=== PATIENT | female | born 1950 | race Caucasian/White ===

== ENCOUNTER 2019-11-25 00:20 | Day surgery (SDC) | payer MEDICARE, SELFPAY ==
[2019-11-21 14:01] VITALS: BMI 27.3
--- NOTE | 2019-11-25 08:35 | WPDANESEPPF ---
Anes - Initial Pre Proc Eval Procedure: Operation Date: 11/25/19 10:00 Proposed Procedures p Esophagogastroduodenoscopy - Thang Trujillo MD <Robinson Weir MD - Last Filed: 11/25/19 08:35> Date/Time: 11/25/19 08:35 <Robinson Weir MD - Last Filed: 11/25/19 08:35> Surgeon: Thang Trujillo MD <Robinson Weir MD - Last Filed: 11/25/19 08:35> Pre Op Diagnosis: Gerd, Anemia <Robinson Weir MD - Last Filed: 11/25/19 08:35> Patient Data Age: 68 Gender: F Height: 5 ft 6 in Weight: 77 kg <Robinson Weir MD - Last Filed: 11/25/19 08:35> Allergies Allergy/AdvReac Type Severity Reaction Status Date / Time bupropion Allergy Mild Itching Verified 11/21/19 14:24 sulfamethoxazole Allergy Verified 11/21/19 14:24 [From Bactrim] trimethoprim [From Bactrim] Allergy Itching Verified 11/21/19 14:24 <Robinson Weir MD - Last Filed: 11/25/19 08:35> Home Medications Medication Instructions Recorded Confirmed Type blood sugar diagnostic #100 each 09/05/19 Rx lancets 33 gauge #100 each 09/05/19 Rx aspirin 81 mg tablet,delayed 81 mg PO DAILY 11/07/19 11/21/19 History release famotidine 40 mg tablet 40 mg PO DAILY 11/07/19 11/21/19 History lisinopril 10 mg tablet 10 mg PO DAILY 11/07/19 11/21/19 History metformin 850 mg tablet 850 mg PO BID 11/07/19 11/21/19 History multivitamin 1 tablet PO DAILY 11/07/19 11/21/19 History rosuvastatin 20 mg tablet 20 mg PO DAILY 11/07/19 11/21/19 History <Robinson Weir MD - Last Filed: 11/25/19 08:35> Patient hx anesthesia problems: none <Merrick Khan MD - Last Filed: 11/25/19 10:01> Family hx anesthesia problems: none <Merrick Khan MD - Last Filed: 11/25/19 10:01> PMFSH Past Medical History Medical History: Medical History (Updated 11/25/19 @ 08:35 by Robinson Weir MD) Gastro-esophageal reflux disease without esophagitis Hypertension Other hyperlipidemia Renal stone Type 2 diabetes mellitus without complications <Robinson Weir MD - Last Filed: 11/25/19 08:35> Surgical History Surgical History: Surgical History H/O lithotripsy <Robinson Weir MD - Last Filed: 11/25/19 08:35> Social History Social History: Social History Smoking status: Former smoker Second hand tobacco smoke exposure: Yes Smoking end date: 10/19/01 Alcohol intake: never Gender identity (if verbalized by the patient): Female <Robinson Weir MD - Last Filed: 11/25/19 08:35> Anes - Eval Final PreProcedure Day of Procedure 11/25/19 08:35 <Robinson Weir MD - Last Filed: 11/25/19 08:35> Patient weight: overweight <Merrick Khan MD - Last Filed: 11/25/19 10:01> Heart: regular rate and rhythm <Merrick Khan MD - Last Filed: 11/25/19 10:01> Lungs: clear to auscultation and normal air movement <Merrick Khan MD - Last Filed: 11/25/19 10:01> Airway: Mallampati scale class II <Merrick Khan MD - Last Filed: 11/25/19 10:01> Neurological: alert and oriented <Merrick Khan MD - Last Filed: 11/25/19 10:01> Last oral intake: >/= 8 hours <Merrick Khan MD - Last Filed: 11/25/19 10:01> ASA classification: III <Merrick Khan MD - Last Filed: 11/25/19 10:01> Emergent: no <Merrick Khan MD - Last Filed: 11/25/19 10:01> Anesthetic plan: proceed <Merrick Khan MD - Last Filed: 11/25/19 10:01> Anesthesia type and monitoring: general GIVS <Merrick Khan MD - Last Filed: 11/25/19 10:01> Informed Consent: The patient's anesthetic plan and its attendant risks and benefits were discussed with the patient/family/POA. Questions were solicited and answers provided to the satisfaction of the patient/family/POA. <Robinson Weir MD - Last Filed: 11/25/19 08:35>
[2019-11-25 09:54] VITALS: BP 125/58; PULSE 62; RESP 20; TEMP 36.4; O2SAT 99; BMI 27.7
[2019-11-25] MEDS: LACTATED RINGERS 1,000 ML 150 ML IV CONT (10:06)
--- NOTE | 2019-11-25 10:11 | WPDGICN ---
Assessment and Plan Additional Plan This is a 68-year-old white female patient seen in evaluation at the request of Dr. Danilo Dennis. Patient has a long history of heartburn. She has a long history of acid reflux. For several years has had substernal burning. This worsens when reclining in with eating spicy foods. She has had good response to famotidine 40 mg p.o. daily. She denies any dysphagia. She denies any bleeding. She denies any weight loss. Family history is significant her father also has had acid reflux. Patient is allergic to sulfa and Bactrim. Past medical history is significant for GE reflux disease. Diabetes mellitus. Hyperlipidemia Kidney stone. Current medications include famotidine 40 mg p.o. daily. Aspirin. Lisinopril. Metformin. Multiple vitamins. Rosuvastatin. Physical exam reveals her to be alert. Oriented x3. Vital signs stable. HEENT exam unremarkable. She is anicteric. Lungs are clear to auscultation and percussion. Heart is without murmur or extra sounds. Abdominal exam bowel sounds are present soft nontender with no organomegaly. Digital external rectal exam deferred. Labs revealed hemoglobin 11.6, hematocrit 34.8, MCV 89.7. Impression 1. GE reflux disease. This appears to be chronic. She now has mild normochromic normocytic anemia. May be on this basis. Plan is for long-term acid suppression anti-reflux measures are encourage. Further recommendations may be given after endoscopy. 2. Mild normochromic normocytic anemia. GI Consult Note Consult date/time: 11/25/19 10:11 HPI: Jessica Garcia is a 68 year old female [facility] Past Medical History Medical History (Updated 11/25/19 @ 08:35 by Robinson Weir MD) Gastro-esophageal reflux disease without esophagitis Hypertension Other hyperlipidemia Renal stone Type 2 diabetes mellitus without complications Surgical History Surgical History H/O lithotripsy Social History Social History Smoking status: Former smoker Second hand tobacco smoke exposure: Yes Smoking end date: 10/19/01 Alcohol intake: never Gender identity (if verbalized by the patient): Female Meds Home Medications and Allergies Home Medications Medication Instructions Recorded Confirmed Type blood sugar diagnostic #100 each 09/05/19 Rx lancets 33 gauge #100 each 09/05/19 Rx aspirin 81 mg tablet,delayed 81 mg PO DAILY 11/07/19 11/21/19 History release famotidine 40 mg tablet 40 mg PO DAILY 11/07/19 11/21/19 History lisinopril 10 mg tablet 10 mg PO DAILY 11/07/19 11/21/19 History metformin 850 mg tablet 850 mg PO BID 11/07/19 11/21/19 History multivitamin 1 tablet PO DAILY 11/07/19 11/21/19 History rosuvastatin 20 mg tablet 20 mg PO DAILY 11/07/19 11/21/19 History Allergies Allergy/AdvReac Type Severity Reaction Status Date / Time bupropion Allergy Mild Itching Verified 11/21/19 14:24 sulfamethoxazole Allergy Verified 11/21/19 14:24 [From Bactrim] trimethoprim [From Bactrim] Allergy Itching Verified 11/21/19 14:24 Vital Signs Vital Signs - 24 hr 11/25/19 09:54 Temperature 36.4 C L Pulse Rate 62 Respiratory Rate 20 Blood Pressure 125/58 L Pulse Oximetry 99
[2019-11-25 10:22] LABS: Glucose Point of Care 176 (65-105)
[2019-11-25 11:43] VITALS: BP 109/83; PULSE 62; RESP 20; O2SAT 100
[2019-11-25 11:53] VITALS: BP 116/63; PULSE 60; RESP 23; O2SAT 93
[2019-11-25 12:03] VITALS: BP 127/65; PULSE 60; RESP 19; O2SAT 99
== END 2019-11-25 12:17 | disposition home or self-care (01) ==
PROVIDERS: PCP Internal Medicine; Visit Provider Internal Medicine Gastroenterology
PROC: 0DJ08ZZ Inspection of Upper Intestinal Tract, Via Natural or Artificial Opening Endoscopic (ICD-10-PCS; CPT 43235; principal; 2019-11-25 10:00)
DX: K21.0 Gastro-esophageal reflux disease with esophagitis (principal); Q39.4 Esophageal web; D64.9 Anemia, unspecified; E11.9 Type 2 diabetes mellitus without complications; E78.5 Hyperlipidemia, unspecified; Z79.84 Long term (current) use of oral hypoglycemic drugs; Z79.82 Long term (current) use of aspirin; Z87.891 Personal history of nicotine dependence
CPT/HCPCS: 43239; 43450; J2704; J7120

== ENCOUNTER 2020-03-05 15:39 | Outpatient (CLI) | payer MEDICARE, SELFPAY ==
[2020-03-05 16:21] LABS: Add Urine Microscopic? YES; Appearance Urine Clear (Clear); Bilirubin Urine Negative (Negative); Blood Urine Negative (Negative); Color Urine Yellow (Yellow); Glucose Urine UA Negative (Negative); Ketones Urine Trace mg/dL (Negative); Leukocyte Esterase Ur 2+ LEU/UL (Negative); Mucus Urine Rare /lpf; Nitrate Urine Negative (Negative); Protein Urine 1+ mg/dL (Negative); Specific Grav Ur 1.023 (1.001-1.035); Squamous Epithelial Cell Urine Few /hpf (Few); Urobilinogen Urine Negative mg/dL (<2.0); WBC Urine >75 /hpf
== END 2020-03-05 15:40 | disposition home or self-care (01) ==
LOC: ANHLAB 15:42
PROVIDERS: PCP Internal Medicine; Visit Provider Internal Medicine
DX: R30.0 Dysuria (principal)
CPT/HCPCS: 81001; 87086

== ENCOUNTER 2020-04-02 09:49 | Outpatient (CLI) | payer MEDICARE, SELFPAY ==
--- NOTE | ~2020-04-02 | XR_ITS ---
EXAMINATION: XR abdomen/kub 1V DATE: 04/02/2020 10:12 INDICATION: Right kidney stone. TECHNIQUE: A supine view of the abdomen on 2 radiographs was obtained. COMPARISON: Abdomen radiographs 09/24/2019 FINDINGS: There are no dilated loops of bowel. There is a large volume of stool in the colon. There a re phleboliths in the pelvis. There are 4 mm and 1 mm stones in right kidney lower pole. IMPRESSION: 1. Right kidney stones. Reviewed, dictated and finalized at location A. IMPRESSION: 1. Right kidney stones.
== END 2020-04-02 09:50 | disposition home or self-care (01) ==
LOC: ANHIMG 09:54
PROVIDERS: PCP Internal Medicine; Visit Provider Urology
DX: N20.0 Calculus of kidney (principal)
CPT/HCPCS: 74018

== ENCOUNTER 2020-04-18 10:42 | Outpatient (CLI) | payer MEDICARE, SELFPAY ==
[2020-04-18 11:42] LABS: Basophils Percent Auto 0.4 % (0.2-1.2); Eosinophils Absolute Auto 0.1 K/mm3 (0-0.3); Eosinophils Percent Auto 2.4 % (0-4.4); Hematocrit 34.2 % (37.0-47.0); Hemoglobin 11.3 g/dL (12.0-15.0); Immature Granulocyte Absolute 0.02 K/mm3 (0.00-0.031); Immature Granulocyte Percent A 0.4 % (0-0.5); Lymphocytes Absolute Auto 1.51 K/mm3 (0.9-3.2); Lymphocytes Percent Auto 28.4 % (18.3-44.2); Mean Corpuscular Hemoglobin 29.8 pg (26-34); Mean Corpuscular Volume 90.2 fl (80-100); Monocytes Absolute Auto 0.3 K/mm3 (0.1-0.6); Monocytes Percent Auto 6.4 % (2.6-8.5); Neutrophils Absolute Auto 3.3 K/mm3 (1.3-6.7); Platelet Count Result 278 k/mm3 (150-375); Red Blood Count 3.79 M/mm3 (4.2-5.4); Red Cell Distribution Width 12.7 % (11.5-14.5); White Blood Count 5.3 K/mm3 (4.5-10.0)
[2020-04-18 11:54] LABS: Alanine Aminotransferase 21 U/L (4-35); Albumin Level 4.5 g/dL (3.5-5.1); Alkaline Phosphatase 80 U/L (38-126); Aspartate Amino Transferase 26 U/L (14-36); Bilirubin,Total 0.3 mg/dL (0.2-1.3); Blood Urea Nitrogen 19 mg/dL (7-17); Calcium 9.5 mg/dL (8.4-10.2); Carbon Dioxide 26 mmol/L (22-30); Chloride 104 mmol/L (98-107); Cholesterol 137 mg/dL (0-200); Estimated Glomerular Filt Rate 55; Glucose 160 mg/dL (65-105); HDL Direct 55 mg/dL; Potassium 4.5 mmol/L (3.4-5.0); Sodium 138 mmol/L (137-145); Triglycerides 209 mg/dL (<150)
[2020-04-18 12:05] LABS: LDL Cholesterol Direct 52 mg/dL
[2020-04-18 12:16] LABS: Iron 71 ug/dL (37-170)
[2020-04-18 12:25] LABS: Hemoglobin A1C 7.6 % (<5.7)
[2020-04-18 12:26] LABS: Percent Iron Saturation 20 % (20-50)
[2020-04-18 12:34] LABS: Free T4 Free Thyroxine 0.99 ng/mL (0.78-2.19)
[2020-04-18 12:38] LABS: Creatinine Urine 114.2 mg/dL
[2020-04-18 12:45] LABS: MALB Creatinine Ratio 5.8 mg/g (0-30); Microalbumin Urine Random 6.6 mg/L (0-16.7)
[2020-04-18 13:01] LABS: Folic Acid > 20.0 ng/mL (2.76->20)
== END 2020-04-18 10:43 | disposition home or self-care (01) ==
PROVIDERS: PCP Internal Medicine; Visit Provider Internal Medicine
DX: D64.9 Anemia, unspecified (principal); E11.9 Type 2 diabetes mellitus without complications; E03.9 Hypothyroidism, unspecified
CPT/HCPCS: 36415; 80053; 80061; 82043; 82607; 82746; 83036; 83540; 83550; 84439; 84443; 85025

== ENCOUNTER 2020-05-16 11:29 | Outpatient (CLI) | payer MEDICARE, SELFPAY ==
[2020-05-16 11:58] LABS: Add Urine Microscopic? YES; Appearance Urine Cloudy (Clear); Bilirubin Urine Negative (Negative); Color Urine Yellow (Yellow); Glucose Urine UA Negative (Negative); Ketones Urine Negative (Negative); Leukocyte Esterase Ur 3+ LEU/UL (Negative); Nitrate Urine Negative (Negative); Protein Urine 1+ mg/dL (Negative); Squamous Epithelial Cell Urine Rare /hpf (Few); Urobilinogen Urine Negative mg/dL (<2.0); WBC Urine >75 /hpf
[2020-05-16 12:11] LABS: Blood Urine Negative (Negative)
== END 2020-05-16 11:30 | disposition home or self-care (01) ==
LOC: ANHLAB 11:30
PROVIDERS: PCP Internal Medicine; Visit Provider Internal Medicine
DX: R30.0 Dysuria (principal)
CPT/HCPCS: 81001; 87077; 87086; 87088; 87186

== ENCOUNTER 2020-08-08 09:48 | Outpatient (CLI) | payer MEDICARE, SELFPAY ==
--- NOTE | ~2020-08-08 | MM_ITS ---
EXAMINATION: MM screening jyoti BI w jonelle HISTORY: Screening mammogram TECHNIQUE: Craniocaudal and mediolateral oblique 3-D tomosynthesis images were obtained and synthetic 2-D images were generated. CAD analysis was submitted and interpreted. COMPARISON: 07/05/2019, 05/12/2018, 04/07/2016 bilateral digital screening mammogram examinations 09/25/2017 bilateral digital screening mammogram BREAST PARENCHYMAL COMPOSITION: There are scattered areas of fibroglandular density. FINDINGS: Stable approximately 9 mm mass is again noted in the lower outer right breast. This is dimi nished in size compared to 09/25/2007. Bilateral benign calcifications are again noted. There is no ev idence of suspicious mass, calcification, or architectural distortion to suggest malignancy in either breast. There has been no suspicious interval change. IMPRESSION: 1. No mammographic evidence of malignancy. 2. Recommend routine screening mammography in one year. BI-RADS Category 2: Benign finding(s). Reviewed, dictated and finalized at location A.
--- NOTE | ~2020-08-08 | DEXA_ITS ---
Bone Density Report Name: Jessica Garcia Age: 69 Sex: Female Ethnicity: White Date of : 1950 Indication: postmenopausal; parental hip fracture; height loss; prior fracture; cancer; hysterectomy; Referring Provider: Cindy Landers Study: Bone densitometry was performed. Exam Date: August 08, 2020 Accession number: [id number] Bone Density: Region BMD T-score Z-score Classification AP Spine (L1, L2, L3) 1.010 -0.1 2.0 Normal Femoral Neck (Left) 0.772 -0.7 1.1 Normal Total Hip (Left) 0.961 0.2 1.6 Normal Total Hip Bilateral Avg 0.930 -0.1 1.4 Normal Femoral Neck (Right) 0.740 -1.0 0.8 Normal Total Hip (Right) 0.897 -0.4 1.1 Normal World Health Organization criteria for BMD impression classify patients as: Normal (T-score at or above -1.0), Osteopenia (T-score between -1.0 and -2.5), or Osteoporosis (T-score at or below -2.5). 10-year Fracture Risk: FRAX not reported because: All T-scores for Spine Total, Hip Total, Femoral Neck at or above -1.0 Previous Exams: Region Exam Age BMD T-score BMD Change BMD Change Date g/cm2 vs Baseline vs Previous AP Spine(L1, L2, L3) 08/08/2020 69 1.010 -0.1 -0.190(-15.9%) -0.105(-9.4%)# 05/12/2018 67 1.114 0.9 -0.086(-7.1%)# 0.114(11.4%)# 05/09/2016 65 1.000 -0.2 -0.200(-16.7%) -0.100(-9.1%)* 01/03/2014 63 1.100 0.7 -0.100(-8.3%)# -0.022(-2.0%) 12/16/2011 61 1.122 0.9 -0.078(-6.5%)# 0.080(7.6%)# 10/04/2009 58 1.043 0.2 -0.157(-13.1%) -0.045(-4.1%)* 09/22/2006 55 1.087 0.6 -0.113(-9.4%)* -0.113(-9.4%)* 07/30/2004 53 1.200 1.7 Total Hip(Left) 08/08/2020 69 0.961 0.2 -0.122(-11.3%) -0.003(-0.3%)# 05/12/2018 67 0.964 0.2 -0.119(-11.0%) -0.027(-2.7%)# 05/09/2016 65 0.991 0.4 -0.092(-8.5%)# 0.033(3.5%)* 01/03/2014 63 0.958 0.1 -0.125(-11.6%) -0.036(-3.7%)* 12/16/2011 61 0.995 0.4 -0.089(-8.2%)# -0.041(-4.0%)# 10/04/2009 58 1.036 0.8 -0.047(-4.4%)* -0.059(-5.4%)* 09/22/2006 55 1.095 1.3 0.011(1.1%) 0.011(1.1%) 07/30/2004 53 1.083 1.2 Total Hip(Right) 08/08/2020 69 0.897 -0.4 -0.174(-16.2%) -0.036(-3.8%)# 05/12/2018 67 0.933 -0.1 -0.138(-12.9%) -0.025(-2.6%)# 05/09/2016 65 0.958 0.1 -0.114(-10.6%) 0.036(3.9%)* 01/03/2014 63 0.922 -0.2 -0.150(-14.0%) -0.046(-4.7%)* 12/16/2011 61 0.967 0.2 -0.104(-9.7%)# -0.075(-7.2%)# 10/04/2009 58 1.042 0.8 -0.029(-2.7%)* -0.043(-3.9%)* 09/22/2006 55 1.085 1.2 0.014(1.3%) 0.014(1.3%) 07/30/2004 53 1.071 1.1 *Jomar
== END 2020-08-08 09:49 | disposition home or self-care (01) ==
PROVIDERS: PCP Internal Medicine; Visit Provider Student in an Organized Health Care Education/Training Program
DX: Z12.31 Encounter for screening mammogram for malignant neoplasm of breast (principal); Z78.0 Asymptomatic menopausal state
CPT/HCPCS: 77063; 77067; 77080

== ENCOUNTER 2020-12-10 10:14 | Outpatient (CLI) | payer MEDICARE, SELFPAY ==
[2020-12-10 10:31] LABS: Basophils Percent Auto 0.6 % (0.2-1.2); Eosinophils Absolute Auto 0.2 K/mm3 (0-0.3); Eosinophils Percent Auto 2.8 % (0-4.4); Hemoglobin 11.5 g/dL (12.0-15.0); Immature Granulocyte Absolute 0.01 K/mm3 (0.00-0.031); Immature Granulocyte Percent A 0.2 % (0-0.5); Lymphocytes Absolute Auto 1.42 K/mm3 (0.9-3.2); Lymphocytes Percent Auto 26.5 % (18.3-44.2); Mean Corpuscular HGB Conc 32.9 g/dl (32-36); Mean Corpuscular Hemoglobin 29.3 pg (26-34); Mean Corpuscular Volume 89.3 fl (80-100); Mean Platelet Volume 8.8 fl (7.4-10.4); Monocytes Absolute Auto 0.4 K/mm3 (0.1-0.6); Monocytes Percent Auto 6.9 % (2.6-8.5); Neutrophils Absolute Auto 3.4 K/mm3 (1.3-6.7); Platelet Count Result 297 k/mm3 (150-375); Red Blood Count 3.92 M/mm3 (4.2-5.4); Red Cell Distribution Width 12.3 % (11.5-14.5); White Blood Count 5.4 K/mm3 (4.5-10.0)
[2020-12-10 10:40] LABS: Hemoglobin A1C 7.1 % (<5.7)
[2020-12-10 10:46] LABS: Alanine Aminotransferase 25 U/L (4-35); Albumin Level 4.7 g/dL (3.5-5.1); Alkaline Phosphatase 81 U/L (38-126); Anion Gap 8 mmol/L (8-16); Aspartate Amino Transferase 30 U/L (14-36); Bilirubin,Total 0.5 mg/dL (0.2-1.3); Blood Urea Nitrogen 21 mg/dL (7-17); Calcium 9.9 mg/dL (8.4-10.2); Carbon Dioxide 29 mmol/L (22-30); Chloride 104 mmol/L (98-107); Cholesterol 128 mg/dL (0-200); Estimated Glomerular Filt Rate 55; Glucose 153 mg/dL (65-105); HDL Direct 55 mg/dL; Potassium 4.6 mmol/L (3.4-5.0); Sodium 141 mmol/L (137-145); Triglycerides 197 mg/dL (<150)
[2020-12-10 10:57] LABS: LDL Cholesterol Direct 45 mg/dL
[2020-12-10 11:04] LABS: Iron 73 ug/dL (37-170)
[2020-12-10 11:13] LABS: Percent Iron Saturation 19 % (20-50)
[2020-12-10 12:05] LABS: Folic Acid > 20.0 ng/mL (2.76->20)
== END 2020-12-10 10:15 | disposition home or self-care (01) ==
LOC: ANHLAB 10:15
PROVIDERS: PCP Internal Medicine; Visit Provider Internal Medicine
DX: D64.9 Anemia, unspecified (principal); E11.9 Type 2 diabetes mellitus without complications; R53.83 Other fatigue
CPT/HCPCS: 36415; 80053; 80061; 82607; 82746; 83036; 83540; 83550; 84443; 85025

== ENCOUNTER 2021-04-04 09:06 | Outpatient (CLI) | payer MEDICARE, SELFPAY ==
--- NOTE | ~2021-04-04 | XR_ITS ---
XR abdomen/kub 1V DATE: 04/04/2021 09:25 INDICATION: Right kidney stone TECHNIQUE: AP projection, 2 views COMPARISON: 04/02/2020 KUB FINDINGS: Persistent approximately 4 mm calcification overlying the lower pole of the right kidney. N o visceromegaly is evident. The psoas shadows appear intact. No abdominal aortic and iliac arterial c alcifications. There is a moderate amount of fecal material within the colon. No bowel obstruction is evident. IMPRESSION: 4 mm lower pole right renal calcified calculus Reviewed, dictated and finalized at Location A. Reviewed, dictated and finalized at location A.
== END 2021-04-04 09:07 | disposition home or self-care (01) ==
LOC: ANHIMG 09:10
PROVIDERS: PCP Internal Medicine; Visit Provider Urology
DX: N20.0 Calculus of kidney (principal)
CPT/HCPCS: 74018

== ENCOUNTER 2021-06-13 11:03 | Outpatient (CLI) | payer MEDICARE, SELFPAY ==
[2021-06-13 12:45] LABS: Basophils Percent Auto 0.4 % (0.2-1.2); Eosinophils Absolute Auto 0.3 K/mm3 (0-0.3); Eosinophils Percent Auto 3.9 % (0-4.4); Immature Granulocyte Absolute 0.02 K/mm3 (0.00-0.031); Immature Granulocyte Percent A 0.3 % (0-0.5); Lymphocytes Absolute Auto 1.71 K/mm3 (0.9-3.2); Lymphocytes Percent Auto 24.8 % (18.3-44.2); Mean Corpuscular HGB Conc 31.4 g/dl (32-36); Mean Corpuscular Hemoglobin 29.6 pg (26-34); Mean Corpuscular Volume 94.1 fl (80-100); Mean Platelet Volume 9.5 fl (7.4-10.4); Monocytes Absolute Auto 0.5 K/mm3 (0.1-0.6); Monocytes Percent Auto 7.5 % (2.6-8.5); Neutrophils Absolute Auto 4.3 K/mm3 (1.3-6.7); Neutrophils Percent Auto 63.1 % (45.5-73.1); Platelet Count Result 299 k/mm3 (150-375); Red Blood Count 3.72 M/mm3 (4.2-5.4); Red Cell Distribution Width 12.9 % (11.5-14.5); White Blood Count 6.9 K/mm3 (4.5-10.0)
[2021-06-13 13:10] LABS: Alanine Aminotransferase 25 U/L (4-35); Albumin Level 4.9 g/dL (3.5-5.1); Alkaline Phosphatase 84 U/L (38-126); Anion Gap 8 mmol/L (8-16); Aspartate Amino Transferase 30 U/L (14-36); Bilirubin,Total 0.6 mg/dL (0.2-1.3); Blood Urea Nitrogen 24 mg/dL (7-17); Calcium 10.3 mg/dL (8.4-10.2); Carbon Dioxide 28 mmol/L (22-30); Chloride 106 mmol/L (98-107); Cholesterol 129 mg/dL (0-200); Estimated Glomerular Filt Rate 44; Glucose 104 mg/dL (65-110); HDL Direct 57 mg/dL; Potassium 4.6 mmol/L (3.4-5.0); Sodium 142 mmol/L (137-145); Triglycerides 139 mg/dL (<150)
[2021-06-13 13:21] LABS: LDL Cholesterol Direct 38 mg/dL
[2021-06-13 14:02] LABS: Creatinine Urine 157.5 mg/dL
[2021-06-13 14:06] LABS: Microalbumin Urine Random 9.4 mg/L (0-16.7)
[2021-06-13 14:32] LABS: Folic Acid > 20.0 ng/mL (2.76->20)
[2021-06-13 19:16] LABS: Hemoglobin A1C 7.4 % (<5.7)
[2021-06-13 22:43] LABS: Iron 69 ug/dL (37-170)
[2021-06-13 22:53] LABS: Percent Iron Saturation 19 % (20-50)
== END 2021-06-13 11:04 | disposition home or self-care (01) ==
PROVIDERS: PCP Internal Medicine; Visit Provider Internal Medicine
DX: R53.83 Other fatigue (principal); E11.9 Type 2 diabetes mellitus without complications; D64.9 Anemia, unspecified; E78.5 Hyperlipidemia, unspecified
CPT/HCPCS: 36415; 80053; 80061; 82043; 82607; 82746; 83036; 83540; 83550; 84443; 85025

== ENCOUNTER 2021-07-09 10:46 | Outpatient (CLI) | payer MEDICARE, SELFPAY ==
[2021-07-09 11:15] LABS: Add Urine Microscopic? YES; Appearance Urine Cloudy (Clear); Bacteria Urine Trace /hpf; Bilirubin Urine Negative (Negative); Blood Urine 1+ (Negative); Color Urine Yellow (Yellow); Glucose Urine UA Negative (Negative); Ketones Urine Negative (Negative); Leukocyte Esterase Ur 3+ LEU/UL (NEGATIVE); Mucus Urine Rare /lpf; Nitrate Urine Negative (Negative); Protein Urine 1+ mg/dL (Negative); Specific Grav Ur 1.019 (1.001-1.035); Squamous Epithelial Cell Urine Occasional /hpf (Few); Urobilinogen Urine Negative mg/dL (<2.0); WBC Urine >75 /hpf (0-3)
== END 2021-07-09 10:47 | disposition home or self-care (01) ==
LOC: ANHLAB 10:47
PROVIDERS: PCP Internal Medicine; Visit Provider Physician Assistant
DX: R30.0 Dysuria (principal)
CPT/HCPCS: 81001; 87077; 87086; 87088; 87186

== ENCOUNTER 2021-08-30 07:51 | Outpatient (CLI) | payer MEDICARE, SELFPAY ==
--- NOTE | ~2021-08-30 | MM_ITS ---
EXAMINATION: MM screening jyoti BI w jonelle HISTORY: Screening mammogram TECHNIQUE: Craniocaudal and mediolateral oblique 3-D tomosynthesis images were obtained and synthetic 2-D images were generated. CAD analysis was submitted and interpreted. COMPARISON: 08/08/2020, 07/05/2019, 05/12/2018, 04/07/2016 bilateral screening mammogram examinations BREAST PARENCHYMAL COMPOSITION: There are scattered areas of fibroglandular density. FINDINGS: Stable approximately 1 cm mass is again noted in the lower outer right breast, not signific antly changed since 04/07/2016. Scattered bilateral benign calcifications are again noted. Asymmetric irregular density is noted in the posterior outer right breast on craniocaudal view. Diagn ostic right mammogram is recommended, with ultrasound if required. Otherwise there is no evidence of suspicious mass, calcification, or architectural distortion to sugg est malignancy in either breast. There has been no other suspicious interval change. IMPRESSION: 1. Asymmetric increased density in the posterior outer right breast on craniocaudal view 2. Diagnostic right mammogram is recommended, with ultrasound if required BI-RADS Category 0: Incomplete: Needs additional imaging evaluation. Reviewed, dictated and finalized at location A. O BROADCASTER IMPRESSION: 1. Asymmetric increased density in the posterior outer right breast on cranioca udal view 2. Diagnostic right mammogram is recommended, with ultrasound if required BI-RADS Category 0: Incomplete: Needs additional imaging evaluation.
== END 2021-08-30 07:52 | disposition home or self-care (01) ==
LOC: ANHIMG 07:53
PROVIDERS: PCP Internal Medicine; Visit Provider Student in an Organized Health Care Education/Training Program
DX: Z12.31 Encounter for screening mammogram for malignant neoplasm of breast (principal); R92.8 Other abnormal and inconclusive findings on diagnostic imaging of breast
CPT/HCPCS: 77063; 77067

== ENCOUNTER 2021-09-05 01:22 | Day surgery (SDC) | payer MEDICARE, SELFPAY ==
[2021-08-21 13:04] VITALS: BMI 27.4
--- NOTE | 2021-09-04 15:17 | PM.HPGS ---
History of Present Illness History of Present Illness Consent: Risks, benefits, and alternatives have been discussed and questions answered. Patient agrees to proceed with procedure. Chief complaint: neoplasm screening Narrative: Jessica Garcia is a 70 year old female Referred for colon cancer screening. 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 Other hyperlipidemia Type 2 diabetes mellitus without complications Uterine prolapse Hysteropexy 1974 Surgical History Surgical History H/O breast biopsy 09/06/04 right breast H/O cataract extraction multiple surgeries, both eyes H/O left wrist surgery H/O lithotripsy H/O vitrectomy H/O: hysterectomy 01/10/03 History of appendectomy 1975 History of bilateral salpingo-oophorectomy 01/10/03 History of bilateral tubal ligation 1975 History of bunionectomy 11/10/05 left foot History of colonoscopy 2000, 2006, 2010, 2016 History of dilation and curettage 1975 History of panretinal photocoagulation History of vaginal surgery 1974 to remove cyst on vaginal wall History of YAG laser capsulotomy of lens multiple surgeries, both eyes Family History Family History Mother Hypertension Carcinoma of colon Father Patient's father is Social History Social History Smoking packs per day: 1 Smoking cigarettes per day: 20.0 Years smoked: 25 Smoking pack-years: 25.00 Smoking status: Former smoker Second hand tobacco smoke exposure: Yes Smoking end date: 10/19/01 Alcohol intake: never Substance use: never Substance use type: does not use Living arrangements: with family Gender identity (if verbalized by the patient): Female Spiritual care concerns: No Meds Home Medications and Allergies Home Medications Medication Instructions Recorded Confirmed Type lancets 33 gauge #100 each 09/05/19 07/16/21 Rx aspirin 81 mg tablet,delayed 81 mg PO DAILY 11/07/19 08/21/21 History release cholecalciferol (vitamin D3) 125 125 mcg PO DAILY 07/12/20 08/21/21 History mcg (5,000 unit) capsule rosuvastatin 20 mg tablet 20 mg PO DAILY #90 tablet 01/16/21 08/21/21 Rx blood sugar diagnostic #100 each 03/20/21 07/16/21 Rx lisinopril 10 mg tablet 10 mg PO DAILY #90 tablet 04/01/21 08/21/21 Rx metformin 850 mg tablet 850 mg PO BID #180 tablet 04/01/21 08/21/21 Rx clobetasol 0.05 % topical gel 1 applic TOPICAL DAILY 06/19/21 08/21/21 History ferrous sulfate 325 mg (65 mg 325 mg PO BID #60 tablet 06/19/21 08/21/21 Rx iron) tablet pantoprazole 40 mg tablet,delayed 40 mg PO QAM #90 tablet 06/19/21 08/21/21 Rx release ciprofloxacin HCl 500 mg tablet 500 mg PO Q12H #14 tablet 07/12/21 08/21/21 Rx Allergies Allergy/AdvReac Type Severity Reaction Status Date / Time bupropion Allergy Mild Itching Verified 08/21/21 13:02 sulfamethoxazole Allergy Mild Itching Verified 08/21/21 13:02 [From Bactrim] trimethoprim [From Bactrim] Allergy Mild Itching Verified 08/21/21 13:02 Exam Resp: Auscultation: clear to auscultation bilaterally Cardio: Rate: regular rate Rhythm: regular rhythm GI: GI Palp: Yes Soft to palpation and No Tenderness to palpation present (GI) Assessment and Plan Assessment and plan (1) Colon cancer screening: Code(s): Z12.11 - Encounter for screening for malignant neoplasm of colon Status: Acute Assessment and Plan: Colonoscopy with possible biopsy or polype
[2021-09-05 06:56] VITALS: BP 143/69; PULSE 65; RESP 20; TEMP 35.8; O2SAT 98; BMI 27.1
[2021-09-05 07:07] LABS: Glucose Point of Care 162 mg/dl (65-105)
[2021-09-05] MEDS: LACTATED RINGERS 1,000 ML 150 ML IV CONT ×2 (07:13→08:26)
--- NOTE | 2021-09-05 08:06 | WPDANESEPPF ---
Anes - Initial Pre Proc Eval Procedure: Operation Date: 09/05/21 08:00 Proposed Procedures p Screening Colonoscopy - Pancho Piedra MD Date/Time: 09/05/21 08:06 Surgeon: Pancho Piedra MD Pre Op Diagnosis: neoplasm screening Patient Data Age: 70 Gender: F Height: 1.68 m Weight: 76.4 kg Last Vital Signs Temp 35.8 C L 09/05/21 06:56 Pulse 65 09/05/21 06:56 Resp 20 09/05/21 06:56 BP 143/69 H 09/05/21 06:56 Pulse Ox 98 09/05/21 06:56 Allergies Allergy/AdvReac Type Severity Reaction Status Date / Time bupropion Allergy Mild Itching Verified 08/21/21 13:02 sulfamethoxazole Allergy Mild Itching Verified 08/21/21 13:02 [From Bactrim] trimethoprim [From Bactrim] Allergy Mild Itching Verified 08/21/21 13:02 Home Medications Medication Instructions Recorded Confirmed Type lancets 33 gauge #100 each 09/05/19 07/16/21 Rx aspirin 81 mg tablet,delayed 81 mg PO DAILY 11/07/19 08/21/21 History release cholecalciferol (vitamin D3) 125 125 mcg PO DAILY 07/12/20 08/21/21 History mcg (5,000 unit) capsule rosuvastatin 20 mg tablet 20 mg PO DAILY #90 tablet 01/16/21 08/21/21 Rx blood sugar diagnostic #100 each 03/20/21 07/16/21 Rx lisinopril 10 mg tablet 10 mg PO DAILY #90 tablet 04/01/21 08/21/21 Rx metformin 850 mg tablet 850 mg PO BID #180 tablet 04/01/21 08/21/21 Rx clobetasol 0.05 % topical gel 1 applic TOPICAL DAILY 06/19/21 08/21/21 History ferrous sulfate 325 mg (65 mg 325 mg PO BID #60 tablet 06/19/21 08/21/21 Rx iron) tablet pantoprazole 40 mg tablet,delayed 40 mg PO QAM #90 tablet 06/19/21 08/21/21 Rx release ciprofloxacin HCl 500 mg tablet 500 mg PO Q12H #14 tablet 07/12/21 08/21/21 Rx Laboratory Tests 09/05/21 07:05 POC Capillary Glucose 162 mg/dl H mg/dl (65-105) Patient hx anesthesia problems: none Family hx anesthesia problems: none Results Review: All pre-operative results and documents have been reviewed as part of the pre-operative evaluation. 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 Other hyperlipidemia Type 2 diabetes mellitus without complications Uterine prolapse Hysteropexy 1974 Surgical History Surgical History H/O breast biopsy 09/06/04 right breast H/O cataract extraction multiple surgeries, both eyes H/O left wrist surgery H/O lithotripsy H/O vitrectomy H/O: hysterectomy 01/10/03 History of appendectomy 1974 History of bilateral salpingo-oophorectomy 01/10/03 History of bilateral tubal ligation 1975 History of bunionectomy 11/10/05 left foot History of colonoscopy 2000, 2005, 2010, 2016 History of dilation and curettage 1975 History of panretinal photocoagulation History of vaginal surgery 1974 to remove cyst on vaginal wall History of YAG laser capsulotomy of lens multiple surgeries, both eyes Family History Family History Mother Hypertension Carcinoma of colon Father Patient's father is Social History Social History Smoking packs per day: 1 Smoking cigarettes per day: 20.0 Years smoked: 25 Smoking pack-years: 25.00 Smoking status: Former smoker Second hand tobacco smoke exposure: Yes Smoking end date: 10/19/01 Alcohol intake: never Substance use: never Substance use type: does not use Living arrangements: with family Gender identity (if verbalized by the patient): Female Spiritual care concerns: No Anes - Eval Final PreProcedure Day of Procedure 09/05/21 08:06 Patient weight: overweight Heart: regular rate and rhythm Lungs: clear to auscultation and normal air movement
[2021-09-05 08:33] VITALS: BP 119/63; PULSE 62; RESP 22; O2SAT 97
[2021-09-05 08:43] VITALS: BP 121/74; PULSE 64; RESP 20; O2SAT 100
[2021-09-05 08:53] VITALS: BP 143/69; PULSE 56; RESP 21; O2SAT 100
== END 2021-09-05 09:02 | disposition home or self-care (01) ==
PROVIDERS: PCP Internal Medicine; Visit Provider Internal Medicine Gastroenterology
PROC: 0DJD8ZZ Inspection of Lower Intestinal Tract, Via Natural or Artificial Opening Endoscopic (ICD-10-PCS; CPT 45378; principal; 2021-09-05 08:00)
DX: Z12.11 Encounter for screening for malignant neoplasm of colon (principal); Z86.010 Personal history of colon polyps; K57.30 Diverticulosis of large intestine without perforation or abscess without bleeding; Z79.82 Long term (current) use of aspirin; Z79.84 Long term (current) use of oral hypoglycemic drugs; K21.9 Gastro-esophageal reflux disease without esophagitis; I10 Essential (primary) hypertension; Z85.840 Personal history of malignant neoplasm of eye; Z87.891 Personal history of nicotine dependence
CPT/HCPCS: G0105; 82948; J2001; J2704; J7120

== ENCOUNTER 2021-09-19 12:49 | Outpatient (CLI) | payer MEDICARE, SELFPAY ==
--- NOTE | ~2021-09-19 | MMUS_ITS ---
EXAMINATION: MM diagnostic jyoti RT w jonelle, US breast RT limited HISTORY: Asymmetric increased density in the posterior outer right breast on 08/30/2021 screening jyoti mogram TECHNIQUE: Additional 3-D tomosynthesis images of the right breast were performed and synthetic 2-D i mages were generated. CAD analysis was submitted and interpreted. High resolution upper outer and low er outer quadrant right breast ultrasound was performed. COMPARISON: 08/30/2021, 08/08/2020, 07/05/2019 right screening mammogram examinations FINDINGS: MAMMOGRAPHIC FINDINGS: Numerous scattered benign calcifications are noted. Stable chronic approximately 9 mm opacity is note d in the lower outer right breast. No suspicious mass or suspicious new or developing density is detected. ULTRASOUND: Corresponding to the chronic approximately 9 mm mammographic opacity at 8:00 is an elongated tubular sonolucency of varying caliber measuring up to 2.2 cm x 5.5 x 14 mm. There is no internal vascularity or suspicious shadowing. No suspicious mass or shadowing of the right breast is detected otherwise. IMPRESSION: 1. Benign findings; no mammographic evidence of malignancy 2. Routine mammographic screening is recommended. BI-RADS Category 2: Benign finding(s). Reviewed, dictated and finalized at location A. 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 Benign findings; no mammographic evidence of malignancy 2. Routine mammographic screening is recommended. BI-RADS Category 2: Benign finding(s).
== END 2021-09-19 12:50 | disposition home or self-care (01) ==
LOC: ANHIMG 12:51
PROVIDERS: PCP Internal Medicine; Visit Provider Student in an Organized Health Care Education/Training Program
DX: N63.10 Unspecified lump in the right breast, unspecified quadrant (principal); R92.8 Other abnormal and inconclusive findings on diagnostic imaging of breast
CPT/HCPCS: 76642; 77061; 77065; G0279

== ENCOUNTER 2021-12-09 11:06 | Outpatient (CLI) | payer MEDICARE, SELFPAY ==
[2021-12-09 11:31] LABS: Basophils Percent Auto 0.5 % (0.2-1.2); Eosinophils Absolute Auto 0.1 K/mm3 (0-0.3); Eosinophils Percent Auto 2.9 % (0-4.4); Hematocrit 32.7 % (37.0-47.0); Hemoglobin 11.1 g/dL (12.0-15.0); Immature Granulocyte Absolute 0.02 K/mm3 (0.00-0.031); Immature Granulocyte Percent A 0.5 % (0-0.5); Lymphocytes Absolute Auto 1.42 K/mm3 (0.9-3.2); Lymphocytes Percent Auto 32.1 % (18.3-44.2); Mean Corpuscular HGB Conc 33.9 g/dl (32-36); Mean Corpuscular Hemoglobin 30.3 pg (26-34); Mean Corpuscular Volume 89.3 fl (80-100); Mean Platelet Volume 8.8 fl (7.4-10.4); Monocytes Absolute Auto 0.3 K/mm3 (0.1-0.6); Monocytes Percent Auto 7.7 % (2.6-8.5); Neutrophils Absolute Auto 2.5 K/mm3 (1.3-6.7); Neutrophils Percent Auto 56.3 % (45.5-73.1); Platelet Count Result 307 k/mm3 (150-375); Red Blood Count 3.66 M/mm3 (4.2-5.4); Red Cell Distribution Width 13.2 % (11.5-14.5); White Blood Count 4.4 K/mm3 (4.5-10.0)
[2021-12-09 11:40] LABS: Alanine Aminotransferase 30 U/L (4-35); Albumin Level 4.6 g/dL (3.5-5.1); Alkaline Phosphatase 97 U/L (38-126); Anion Gap 8 mmol/L (8-16); Aspartate Amino Transferase 30 U/L (14-36); Bilirubin,Total 0.5 mg/dL (0.2-1.3); Blood Urea Nitrogen 18 mg/dL (7-17); Calcium 9.4 mg/dL (8.4-10.2); Carbon Dioxide 24 mmol/L (22-30); Chloride 106 mmol/L (98-107); Estimated Glomerular Filt Rate 55; Glucose 173 mg/dL (65-110); Potassium 4.4 mmol/L (3.4-5.0); Sodium 138 mmol/L (137-145)
[2021-12-09 12:46] LABS: Folic Acid 17.5 ng/mL (2.76->20)
[2021-12-09 13:46] LABS: Iron 70 ug/dL (37-170)
[2021-12-09 13:55] LABS: Percent Iron Saturation 20 % (20-50)
[2021-12-09 14:09] LABS: Hemoglobin A1C 7.7 % (<5.7)
[2021-12-17 14:26] LABS: Parathyroid Hormone Related Pr 11 pg/mL (11-20)
== END 2021-12-09 11:07 | disposition home or self-care (01) ==
PROVIDERS: PCP Internal Medicine; Visit Provider Internal Medicine
DX: D64.9 Anemia, unspecified (principal); E11.9 Type 2 diabetes mellitus without complications; E83.52 Hypercalcemia
CPT/HCPCS: 36415; 80053; 82607; 82746; 83036; 83519; 83540; 83550; 85025

== ENCOUNTER 2022-04-01 10:53 | Outpatient (CLI) | payer MEDICARE, SELFPAY ==
--- NOTE | ~2022-04-01 | XR_ITS ---
EXAM: XR abdomen/kub 1V DATE: 04/01/2022 11:16 HISTORY: RT KIDNEY STONES 1 YR AGO,HAD LITHOTRIPSY, NO PAIN CURRENTLY . COMPARISON: 07/11/2019. FINDINGS: Stable likely benign lower lobe pulmonary nodules, otherwise lung bases clear. Normal sagar l gas pattern. No organomegaly. Stable 4 mm right lower pole calcification. Stable 3 mm and linear ca lcifications projecting over the L2 and 3 transverse processes on the left, may reflect vascular calc ification as is seen elsewhere in the abdomen/pelvis. Multilevel degenerative lumbar change. IMPRESSION: Stable right nephrolithiasis. Reviewed, dictated and finalized at location K.
== END 2022-04-01 10:54 | disposition home or self-care (01) ==
PROVIDERS: PCP Internal Medicine; Visit Provider Urology
DX: N20.0 Calculus of kidney (principal)
CPT/HCPCS: 74018

== ENCOUNTER 2022-07-23 10:43 | Outpatient (CLI) | payer MEDICARE, SELFPAY ==
[2022-07-23 11:12] LABS: Basophils Percent Auto 0.4 % (0.2-1.2); Eosinophils Absolute Auto 0.1 K/mm3 (0-0.3); Hematocrit 35.4 % (37.0-47.0); Hemoglobin 11.7 g/dL (12.0-15.0); Immature Granulocyte Absolute 0.02 K/mm3 (0.00-0.031); Immature Granulocyte Percent A 0.4 % (0-0.5); Lymphocytes Absolute Auto 1.48 K/mm3 (0.9-3.2); Mean Corpuscular HGB Conc 33.1 g/dl (32-36); Mean Corpuscular Hemoglobin 30.4 pg (26-34); Mean Corpuscular Volume 91.9 fl (80-100); Mean Platelet Volume 9.3 fl (7.4-10.4); Monocytes Absolute Auto 0.4 K/mm3 (0.1-0.6); Monocytes Percent Auto 7.9 % (2.6-8.5); Neutrophils Absolute Auto 2.9 K/mm3 (1.3-6.7); Neutrophils Percent Auto 59.3 % (45.5-73.1); Nucleated Red Blood Cells Perc 0.4 % (0.0-0.2); Platelet Count Result 284 k/mm3 (150-375); Red Blood Count 3.85 M/mm3 (4.2-5.4); Red Cell Distribution Width 12.2 % (11.5-14.5); White Blood Count 4.9 K/mm3 (4.5-10.0)
[2022-07-23 11:23] LABS: Alanine Aminotransferase 25 U/L (6-35); Albumin Level 4.6 g/dL (3.5-5.1); Alkaline Phosphatase 95 U/L (38-126); Anion Gap 8 mmol/L (8-16); Aspartate Amino Transferase 25 U/L (14-36); Bilirubin,Total 0.4 mg/dL (0.2-1.3); Blood Urea Nitrogen 24 mg/dL (7-17); Calcium 9.6 mg/dL (8.4-10.2); Carbon Dioxide 26 mmol/L (22-30); Chloride 104 mmol/L (98-107); Cholesterol 128 mg/dL (0-200); Estimated Glomerular Filt Rate 49; Glucose 178 mg/dL (65-110); HDL Direct 52 mg/dL; Potassium 4.4 mmol/L (3.4-5.0); Sodium 138 mmol/L (137-145); Triglycerides 153 mg/dL (<150)
[2022-07-23 11:34] LABS: LDL Cholesterol Direct 48 mg/dL
[2022-07-23 11:45] LABS: Hemoglobin A1C 8.4 % (<5.7)
[2022-07-23 12:28] LABS: Folic Acid 14.7 ng/mL (2.76->20)
[2022-07-23 13:01] LABS: Microalbumin Urine Random 12.2 mg/L (0-16.7)
[2022-07-23 13:08] LABS: Creatinine Urine 135.7 mg/dL
[2022-07-23 13:24] LABS: Iron 66 ug/dL (37-170)
[2022-07-23 13:34] LABS: Percent Iron Saturation 18 % (20-50)
== END 2022-07-23 10:44 | disposition home or self-care (01) ==
LOC: ANHLAB 10:44
PROVIDERS: PCP Internal Medicine; Visit Provider Internal Medicine
DX: D64.9 Anemia, unspecified (principal); E11.9 Type 2 diabetes mellitus without complications; E78.5 Hyperlipidemia, unspecified; R53.83 Other fatigue
CPT/HCPCS: 36415; 80053; 80061; 82043; 82607; 82746; 83036; 83540; 83550; 84443; 85025

== ENCOUNTER 2022-10-06 14:37 | Outpatient (CLI) | payer MEDICARE, SELFPAY ==
--- NOTE | ~2022-10-06 | DEXA_ITS ---
Bone Density Report Name: KM ALFRED Age: 71 Sex: Female Ethnicity: White Date of : 1950 Indication: postmenopausal; screening for osteoporosis; parental hip fracture; prior fracture; cancer; hysterectomy; Referring Provider: DEQUAN KABA Study: Bone densitometry was performed. Exam Date: October 06, 2022 Accession number: [id number] Bone Density: Region BMD T-score Z-score Classification AP Spine(L1, L2, L3) 1.085 0.6 2.8 Normal Femoral Neck (Left) 0.783 -0.6 1.3 Normal Total Hip (Left) 0.944 0.0 1.6 Normal Femoral Neck (Right) 0.783 -0.6 1.3 Normal Total Hip (Right) 0.862 -0.7 0.9 Normal Total Hip Mean 0.903 -0.4 1.3 Normal World Health Organization criteria for BMD impression classify patients as: Normal (T-score at or above -1.0), Osteopenia (T-score between -1.0 and -2.5), or Osteoporosis (T-score at or below -2.5). 10-year Fracture Risk: FRAX not reported because: All T-scores for Spine Total, Hip Total, Femoral Neck at or above -1.0 Clinical Information Provided by Patient: Has had a low trauma fracture Parent has had a hip fracture Has used the following medications: Vitamin D Has the following medical conditions: Cancer, Hysterectomy Patient maximum height was 66 Menopause Age: 52 No regular weight bearing exercise Drinks caffeinated beverages Onset of menses at age 13 Number of children 2 Impression: The patient has normal bone mass. The patient has risk factors, including: parental hip fracture, previous fracture. Discussion: BONE DENSITY IS ABOVE THE MINIMUM DESIRABLE LEVEL AT ALL SKELETAL SITES TESTED. This patient?s bone mineral density is above the minimum desirable level (T-score -1.0 or better) at all sites measured. The patient should follow a healthful lifestyle (good nutrition with adequate calcium and vitamin D, and appropriate weight-bearing exercise). Follow-Up: Consider repeating this study in 5 years or sooner if there is some new clinical indication. Reported by: DELORIS on 10/06/2022 3:02:00 PM. Reviewed, dictated and finalized at location [facility]val[facility]
--- NOTE | ~2022-10-06 | MM_ITS ---
EXAMINATION: MM screening jyoti BI w jonelle HISTORY: Screening TECHNIQUE: Craniocaudal and mediolateral oblique 3-D tomosynthesis images were obtained and synthetic 2-D images were generated. CAD analysis was submitted and interpreted. COMPARISON: Comparison to multiple prior studies sequentially, with oldest reviewed study dated 04/11. BREAST PARENCHYMAL COMPOSITION: There are scattered areas of fibroglandular density. FINDINGS: There are benign calcifications. Stable right breast mass. There is no evidence of suspicio us mass, calcification, or architectural distortion to suggest malignancy in either breast. There has been no suspicious interval change. IMPRESSION: 1. No mammographic evidence of malignancy. 2. Recommend routine screening mammography in one year. BI-RADS Category 2: Benign finding(s). Reviewed, dictated and finalized at location A. BER APPRENTICE
== END 2022-10-06 14:38 | disposition home or self-care (01) ==
LOC: ANHIMG 14:38
PROVIDERS: PCP Internal Medicine; Visit Provider Student in an Organized Health Care Education/Training Program
DX: Z12.31 Encounter for screening mammogram for malignant neoplasm of breast (principal); Z78.0 Asymptomatic menopausal state
CPT/HCPCS: 77063; 77067; 77080

== ENCOUNTER 2023-01-21 09:37 | Outpatient (CLI) | payer MEDICARE, SELFPAY ==
[2023-01-21 10:17] LABS: Basophils Percent Auto 0.6 % (0.2-1.2); Eosinophils Absolute Auto 0.2 K/mm3 (0-0.3); Eosinophils Percent Auto 3.2 % (0-4.4); Hematocrit 37.4 % (37.0-47.0); Immature Granulocyte Absolute 0.02 K/mm3 (0.00-0.031); Immature Granulocyte Percent A 0.4 % (0-0.5); Lymphocytes Absolute Auto 1.51 K/mm3 (0.9-3.2); Lymphocytes Percent Auto 28.4 % (18.3-44.2); Mean Corpuscular HGB Conc 32.1 g/dl (32-36); Mean Corpuscular Hemoglobin 29.3 pg (26-34); Mean Corpuscular Volume 91.2 fl (80-100); Mean Platelet Volume 9.2 fl (7.4-10.4); Monocytes Absolute Auto 0.4 K/mm3 (0.1-0.6); Neutrophils Absolute Auto 3.2 K/mm3 (1.3-6.7); Neutrophils Percent Auto 60.4 % (45.5-73.1); Platelet Count Result 282 k/mm3 (150-375); Red Cell Distribution Width 12.7 % (11.5-14.5); White Blood Count 5.3 K/mm3 (4.5-10.0)
[2023-01-21 10:29] LABS: Alanine Aminotransferase 27 U/L (6-35); Albumin Level 4.7 g/dL (3.5-5.1); Alkaline Phosphatase 94 U/L (38-126); Anion Gap 11 mmol/L (8-16); Aspartate Amino Transferase 26 U/L (14-36); Bilirubin,Total 0.6 mg/dL (0.2-1.3); Blood Urea Nitrogen 21 mg/dL (7-17); Calcium 9.3 mg/dL (8.4-10.2); Carbon Dioxide 23 mmol/L (22-30); Chloride 106 mmol/L (98-107); Cholesterol 138 mg/dL (0-200); Estimated Glomerular Filt Rate 49; Glucose 116 mg/dL (65-110); HDL Direct 52 mg/dL; Potassium 4.7 mmol/L (3.4-5.0); Sodium 140 mmol/L (137-145); Triglycerides 129 mg/dL (<150)
[2023-01-21 10:40] LABS: LDL Cholesterol Direct 53 mg/dL
[2023-01-21 10:56] LABS: Hemoglobin A1C 6.6 % (<5.7)
[2023-01-21 11:11] LABS: Creatinine Urine 72.3 mg/dL
[2023-01-21 11:16] LABS: Microalbumin Urine Random 32.5 mg/L (0-16.7)
[2023-01-21 11:33] LABS: Folic Acid 15.7 ng/mL (2.76->20)
[2023-01-21 11:41] LABS: Iron 66 ug/dL (37-170)
[2023-01-21 11:51] LABS: Percent Iron Saturation 19 % (20-50)
== END 2023-01-21 09:38 | disposition home or self-care (01) ==
LOC: ANHLAB 09:40
PROVIDERS: PCP Internal Medicine; Visit Provider Internal Medicine
DX: E11.9 Type 2 diabetes mellitus without complications (principal); D64.9 Anemia, unspecified
CPT/HCPCS: 36415; 80053; 80061; 82043; 82607; 82746; 83036; 83540; 83550; 84443; 85025

== ENCOUNTER 2023-04-03 10:09 | Outpatient (CLI) | payer MEDICARE, SELFPAY ==
--- NOTE | ~2023-04-03 | XR_ITS ---
EXAMINATION: XR abdomen/kub 1V INDICATION: Right kidney stone TECHNIQUE: Supine views of the abdomen were obtained on 2 radiographs. COMPARISON: 04/01/2022 FINDINGS: There is a stable 4 mm stone of the right kidney lower pole. No definite additional urolith iasis is identified. There are phleboliths of the pelvis. A moderate volume of colonic stool is prese nt. There are no dilated loops of bowel. There is mild osteoarthritis of the hips. There is at least moderate lumbar spondylosis. IMPRESSION: 1. Stable right nephrolithiasis. Reviewed, dictated and finalized at location A.
== END 2023-04-03 10:10 | disposition home or self-care (01) ==
LOC: ANHIMG 10:11
PROVIDERS: PCP Internal Medicine; Visit Provider Urology
DX: N20.0 Calculus of kidney (principal)
CPT/HCPCS: 74018

== ENCOUNTER 2023-06-30 11:27 | Outpatient (CLI) | payer MEDICARE, SELFPAY ==
[2023-06-30 12:23] LABS: Appearance Urine Cloudy (Clear); Bacteria Urine None Seen /hpf; Bilirubin Urine Negative (Negative); Blood Urine 1+ (Negative); Budding Yeast Urine Present /hpf; Color Urine Yellow (Yellow); Glucose Urine UA 3+ mg/dL (Negative); Ketones Urine Negative (Negative); Leukocyte Esterase Ur 2+ LEU/UL (Negative); Nitrate Urine Negative (Negative); Non Pathogenic Casts 0-2; Protein Urine 1+ mg/dL (Negative); Specific Grav Ur 1.026 (1.001-1.035); Squamous Epithelial Cell Urine None seen /hpf (Few); Urobilinogen Urine 0.2 mg/dL (<2.0); WBC Clumps Urine Present /HPF; WBC Urine >100 /hpf
[2023-06-30 12:26] LABS: Add Urine Microscopic? YES
== END 2023-06-30 11:28 | disposition home or self-care (01) ==
PROVIDERS: PCP Internal Medicine; Visit Provider Internal Medicine
DX: R30.0 Dysuria (principal)
CPT/HCPCS: 81001; 87086

== ENCOUNTER 2023-07-12 07:23 | Emergency (ER) | payer MEDICARE, SELFPAY ==
--- NOTE | ~2023-07-12 | CT_ITS ---
EXAMINATION: CT abdomen pelvis wo con DATE: 07/12/2023 08:31 INDICATION: History of renal stones. Left flank pain. TECHNIQUE: Computed tomography (CT) of the abdomen and pelvis was performed without intravenous contr ast. The dose-length product was 547.99 mGy-cm. Automated exposure control and iterative reconstructi on technique were employed. COMPARISON: CT dated 07/12/2023. FINDINGS: There is a new 1.6 cm left lower lobe nodule. There is chronic granulomatous disease in the right lower lobe. Heart size normal. No significant pleural or pericardial effusion. There are multiple bilateral renal stones, largest on the right measuring 8 mm. No definite ureteral stones. There is mild right hydronephrosis. Low-density lesion right hepatic lobe, most likely benign cysts. There are calcified granulomas of th e liver. There are calcifications of the pancreas, consistent with chronic pancreatitis. There is ath erosclerosis of the aorta. Nonobstructive bowel gas pattern. Colonic diverticulosis without evidence for diverticulitis. There is mild segmental thickening of the proximal small bowel in the left upper abdomen. There are air-fluid levels in the distal small bowel. Findings suspicious for enteritis. Sma ll fat-containing umbilical hernia. Severe lumbar spondylosis with retrolisthesis at L1-2 and L2-3. T here is degenerative anterolisthesis at L4-5. IMPRESSION: 1. Segmental thickening of the proximal small bowel left upper abdomen with air-fluid levels in the d istal small bowel, suspicious for enteritis. 2: Nonobstructing bilateral nephrolithiasis. Mild proximal right hydronephrosis. 3: New 1.6 cm left lower lobe nodule. Recommend either PET/CT examination or percutaneous biopsy. Reviewed, dictated and finalized at location A. IMPRESSION: 1. Segmental thickening of the proximal small bowel left upper abdomen with air -fluid levels in the distal small bowel, suspicious for enteritis. 2: Nonobstructing bilateral nephrolithiasis. Mild proximal right hydronephrosi s. 3: New 1.6 cm left lower lobe nodule. Recommend either PET/CT examination or pe rcutaneous biopsy.
[2023-07-12 07:27] VITALS: BP 140/70; PULSE 65; RESP 18; O2SAT 100
--- NOTE | 2023-07-12 07:57 | ED.BACK ---
HPI - Back Pain/Injury General Chief Complaint: Back Pain/Injury Stated Complaint: back pain Time Seen by Provider: 07/12/23 07:25 History of Present Illness HPI Narrative: 72-year-old female presented the emergency department for evaluation of left flank and left back pain has been ongoing since Thursday. Patient denies any falls or injuries. Patient does report prior history of back pain but states this feels different. Patient also does have a history of kidney stones for which she has follow-up with Dr. Coello. Patient has been taking Tylenol for pain control without significant improvement. Patient denies any associated numbness or weakness. Patient does report some pain with urination. Related Data Home Medications Medication Instructions Recorded Confirmed aspirin 81 mg tablet,delayed 81 mg PO DAILY 11/07/19 01/28/23 release (Adult Low Dose Aspirin) cholecalciferol (vitamin D3) 125 125 mcg PO DAILY 07/12/20 01/28/23 mcg (5,000 unit) capsule clobetasol 0.05 % topical gel 1 applic topical DAILY 06/19/21 01/28/23 Allergies Allergy/AdvReac Type Severity Reaction Status Date / Time bupropion Allergy Mild Itching Verified 07/12/23 07:32 sulfamethoxazole Allergy Mild Itching Verified 07/12/23 07:32 [From Bactrim] trimethoprim [From Bactrim] Allergy Mild Itching Verified 07/12/23 07:32 Review of Systems Review of Systems: All systems reviewed & are unremarkable except as noted in HPI and below PMFSH Past Medical History Medical History Broken wrist Cystoid macular edema Gastro-esophageal reflux disease without esophagitis Hypertension Injection of surface of eye x3 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 Other hyperlipidemia Type 2 diabetes mellitus without complications Uterine prolapse Hysteropexy 1974 Surgical History Surgical History H/O breast biopsy 09/06/04 right breast H/O cataract extraction multiple surgeries, both eyes H/O left wrist surgery H/O lithotripsy H/O vitrectomy H/O: hysterectomy 01/10/03 History of appendectomy 1974 History of bilateral salpingo-oophorectomy 01/10/03 History of bilateral tubal ligation 1974 History of bunionectomy 11/10/05 left foot History of colonoscopy 2000, 2006, 2011, 2016 History of dilation and curettage 1974 History of panretinal photocoagulation History of vaginal surgery 1974 to remove cyst on vaginal wall History of YAG laser capsulotomy of lens multiple surgeries, both eyes Family History Family History Mother Hypertension Carcinoma of colon Father Patient's father is Social History Social History (Updated 01/28/23 @ 13:35 by Rodrigo Patton MA) Smoking packs per day: 1 Smoking cigarettes per day: 20.0 Years smoked: 25 Smoking pack-years: 25.00 Smoking status: Former smoker Second hand tobacco smoke exposure: Yes Smoking end date: 10/19/01 Alcohol intake: never Substance use: never Substance use type: does not use Lack of Transportation: No Lack of Food: Never True Current Housing: I Have Housing Concerned About Future Housing: No Difficulty Paying Gas/Electric Bills: No Difficulty Paying for Meds: No Currently Unemployed: No Education: High School Diploma/GED Difficulty w/ Childcare or Family Care: No Living arrangements: with family Gender identity (if verbalized by the patient): Female Spiritual care concerns: No Exam Narrative: APPEARANCE: Well appearing, no pain, no distress, well-nourished. HEAD: normocephalic, atraumatic. EYES: PERRLA/EOMI, conjunctivae clear. NOSE: Normal no drainage NECK: Supple. No adenopathy, no masses. RESPIRATORY: Airway patent, respirations nonlabored. Clear to auscultation bilaterally, no rales, rhonchi, wheezing. CARDIOVASCULAR: Regular rate and rhythm without
[2023-07-12] MEDS: MORPHINE SULFATE (*CRX) 4 MG/ML INJ IV PUSH (08:12)
[2023-07-12 08:18] LABS: Basophils Percent Auto 0.5 % (0.2-1.2); Eosinophils Absolute Auto 0.2 K/mm3 (0-0.3); Eosinophils Percent Auto 2.5 % (0-4.4); Hematocrit 37.2 % (37.0-47.0); Immature Granulocyte Absolute 0.02 K/mm3 (0.00-0.031); Immature Granulocyte Percent A 0.3 % (0-0.5); Lymphocytes Percent Auto 19.6 % (18.3-44.2); Mean Corpuscular HGB Conc 32.3 g/dl (32-36); Mean Corpuscular Hemoglobin 30.2 pg (26-34); Mean Corpuscular Volume 93.7 fl (80-100); Mean Platelet Volume 9.2 fl (7.4-10.4); Monocytes Absolute Auto 0.4 K/mm3 (0.1-0.6); Neutrophils Absolute Auto 4.4 K/mm3 (1.3-6.7); Neutrophils Percent Auto 71.1 % (45.5-73.1); Platelet Count Result 262 k/mm3 (150-375); Red Blood Count 3.97 M/mm3 (4.2-5.4); Red Cell Distribution Width 12.4 % (11.5-14.5); White Blood Count 6.1 K/mm3 (4.5-10.0)
[2023-07-12 08:24] LABS: Appearance Urine Cloudy (Clear); Bacteria Urine None Seen /hpf; Bilirubin Urine Negative (Negative); Blood Urine Trace (Negative); Color Urine Yellow (Yellow); Glucose Urine UA 3+ mg/dL (Negative); Ketones Urine Negative (Negative); Leukocyte Esterase Ur 2+ LEU/UL (Negative); Nitrate Urine Negative (Negative); Protein Urine Trace mg/dL (Negative); RBC Urine 0-2 /hpf (0-2); Specific Grav Ur 1.031 (1.001-1.035); Squamous Epithelial Cell Urine Occasional /hpf (Few); Urobilinogen Urine 0.2 mg/dL (<2.0); WBC Urine >100 /hpf
[2023-07-12 08:33] LABS: Alanine Aminotransferase 26 U/L (6-35); Albumin Level 4.7 g/dL (3.5-5.1); Alkaline Phosphatase 96 U/L (38-126); Anion Gap 12 mmol/L (8-16); Aspartate Amino Transferase 28 U/L (14-36); Bilirubin,Total 0.6 mg/dL (0.2-1.3); Blood Urea Nitrogen 22 mg/dL (7-17); Calcium 9.4 mg/dL (8.4-10.2); Carbon Dioxide 24 mmol/L (22-30); Chloride 104 mmol/L (98-107); Estimated CRCL calculation 38 ml/min; Estimated Glomerular Filt Rate 49; Glucose 174 mg/dL (65-110); Potassium 4.3 mmol/L (3.4-5.0); Sodium 140 mmol/L (137-145)
[2023-07-12 08:43] VITALS: BP 108/60; PULSE 66; RESP 18; O2SAT 96
[2023-07-12 08:57] LABS: Add Urine Microscopic? YES
[2023-07-12] MEDS: PHENAZOPYRIDINE HCL 100 MG TABLET PO (09:27)
[2023-07-12 09:45] VITALS: BP 117/78; PULSE 61; RESP 18; O2SAT 98
== END 2023-07-12 09:47 | disposition home or self-care (01) ==
PROVIDERS: Emergency Provider Emergency Medicine; PCP Internal Medicine
DX: N39.0 Urinary tract infection, site not specified (principal); M54.50 Low back pain, unspecified; I10 Essential (primary) hypertension; E11.9 Type 2 diabetes mellitus without complications; K21.9 Gastro-esophageal reflux disease without esophagitis
CPT/HCPCS: 36415; 74176; 80053; 81001; 85025; 87086; 87088; 96361; 96374; 99284; A9270; J0696; J2270

== ENCOUNTER 2023-07-28 07:58 | Outpatient (CLI) | payer MEDICARE, SELFPAY ==
[2023-07-28 08:31] LABS: Basophils Percent Auto 0.5 % (0.2-1.2); Eosinophils Absolute Auto 0.2 K/mm3 (0-0.3); Eosinophils Percent Auto 2.7 % (0-4.4); Hematocrit 35.8 % (37.0-47.0); Hemoglobin 11.5 g/dL (12.0-15.0); Immature Granulocyte Absolute 0.02 K/mm3 (0.00-0.031); Immature Granulocyte Percent A 0.4 % (0-0.5); Lymphocytes Absolute Auto 1.49 K/mm3 (0.9-3.2); Lymphocytes Percent Auto 26.9 % (18.3-44.2); Mean Corpuscular HGB Conc 32.1 g/dl (32-36); Mean Corpuscular Hemoglobin 30.3 pg (26-34); Mean Corpuscular Volume 94.2 fl (80-100); Mean Platelet Volume 9.1 fl (7.4-10.4); Monocytes Absolute Auto 0.4 K/mm3 (0.1-0.6); Monocytes Percent Auto 6.7 % (2.6-8.5); Neutrophils Absolute Auto 3.5 K/mm3 (1.3-6.7); Neutrophils Percent Auto 62.8 % (45.5-73.1); Platelet Count Result 268 k/mm3 (150-375); Red Cell Distribution Width 12.3 % (11.5-14.5); White Blood Count 5.5 K/mm3 (4.5-10.0)
[2023-07-28 08:41] LABS: Hemoglobin A1C 6.3 % (<5.7)
[2023-07-28 08:43] LABS: Alanine Aminotransferase 28 U/L (6-35); Albumin Level 4.6 g/dL (3.5-5.1); Alkaline Phosphatase 79 U/L (38-126); Anion Gap 11 mmol/L (8-16); Aspartate Amino Transferase 28 U/L (14-36); Bilirubin,Total 0.6 mg/dL (0.2-1.3); Blood Urea Nitrogen 19 mg/dL (7-17); Calcium 9.4 mg/dL (8.4-10.2); Carbon Dioxide 24 mmol/L (22-30); Chloride 106 mmol/L (98-107); Cholesterol 147 mg/dL (0-200); Estimated Glomerular Filt Rate 49; Glucose 152 mg/dL (65-110); HDL Direct 58 mg/dL; Potassium 4.2 mmol/L (3.4-5.0); Sodium 141 mmol/L (137-145); Triglycerides 130 mg/dL (<150)
[2023-07-28 08:54] LABS: LDL Cholesterol Direct 56 mg/dL
[2023-07-28 08:56] LABS: Creatinine Urine 67.7 mg/dL
[2023-07-28 09:28] LABS: MALB Creatinine Ratio 379.3 mg/g (0-30); Microalbumin Urine Random 256.8 mg/L (0-16.7)
== END 2023-07-28 07:59 | disposition home or self-care (01) ==
LOC: ANHLAB 08:00
PROVIDERS: PCP Internal Medicine; Visit Provider Internal Medicine
DX: R80.9 Proteinuria, unspecified (principal); E11.9 Type 2 diabetes mellitus without complications; E78.5 Hyperlipidemia, unspecified; R53.83 Other fatigue
CPT/HCPCS: 36415; 80053; 80061; 82043; 83036; 84443; 85025

== ENCOUNTER 2023-08-18 11:57 | Outpatient (CLI) | payer MEDICARE, SELFPAY ==
--- NOTE | ~2023-08-18 | PE_ITS ---
EXAMINATION: PET skull to mid thigh DATE: 08/18/2023 14:05 INDICATION: Left lung lower lobe nodule. TECHNIQUE: Blood glucose level was 124 mg/dL. 10.452 mCi of 18-fluorodeoxyglucose (18-FDG) was admini stered i.v. Low dose computed tomography (CT) images were acquired from the base of the brain to the proximal thighs for attenuation correction and anatomic localization. Automated exposure control was employed. Dose-length product (DLP) was 663 mGy-cm. Positron emission tomography (PET) images were ac quired in the same distribution. COMPARISON: CT abdomen and pelvis 07/12/2023, chest CT 11/08/09 FINDINGS: Head/neck: There are no pathologically enlarged lymph nodes. There is severe cervical spondylosis. Chest: There is a small pneumatocele in right upper lobe. A calcified right lung nodule and calcified right hilar and mediastinal lymph nodes are consistent with old granulomatous disease. There is a 16 mm pleural-based nodule in left lung lower lobe with maximum SUV of 2.2. No pleural effusion. The he art size is normal. There are coronary artery calcifications. There are calcifications of aortic valv e. No pericardial effusion. There is mild thoracic spondylosis. Abdomen/pelvis/proximal thighs: There is a 19 mm cyst in the liver. Calcifications in the liver consi stent with old granulomatous disease. There is a gallstone in the gallbladder, which is normal in siz e. The spleen, pancreas, adrenal glands, and left kidney are normal. There is a 7 mm stone in right k idney. There is diverticulosis of the colon without evidence of diverticulitis. There are no dilated loops of bowel. The appendix is not visualized. There is calcified atherosclerosis of the aorta and m any of the other arteries. There are no pathologically enlarged lymph nodes. There is no free intrape ritoneal fluid. There is severe lumbar spondylosis. IMPRESSION: 1. 16 mm pleural-based nodules in left lung lower lobe without increased activity, new from 11/08/09. The differential diagnosis includes granulomatous disease, low-grade primary bronchogenic carcinoma, and fibrous tumor of the pleura. CT-guided biopsy is recommended. Reviewed, dictated and finalized at location E. IMPRESSION: 1. 16 mm pleural-based nodules in left lung lower lobe without increased activi ty, new from 11/08/09. The differential diagnosis includes granulomatous disease , low-grade primary bronchogenic carcinoma, and fibrous tumor of the pleura. CT -guided biopsy is recommended.
[2023-08-18 12:27] LABS: Glucose Point of Care 124 mg/dl (65-105)
== END 2023-08-18 11:58 | disposition home or self-care (01) ==
PROVIDERS: PCP Internal Medicine; Visit Provider Physician Assistant
DX: R91.1 Solitary pulmonary nodule (principal)
CPT/HCPCS: 78815; A9552

== ENCOUNTER 2023-09-01 05:37 | Outpatient (CLI) | payer MEDICARE, SELFPAY ==
--- NOTE | 2023-08-27 15:19 | PC.NURSE ---
Pre Radiology instructions Report to the outpatient andressa pena on date 09/01/23 at time __0900 for procedure Time: _1100___ YOU MAY BE MONITORED AT HOSPITAL FOR UP TO 4 HOURS AFTER YOUR PROCEDURE. A visitor will be allowed to accompany the patient into the hospital. You and your visitor will be asked to self-screen and do not enter if you have any COVID symptoms. A mask is OPTIONAL within the hospital. Patients are to have no food or drink 6 hours prior to procedure time Driving will be restricted after the procedure, you must have a person to drive you home. Labs will be drawn in preop area and once reviewed, you will be taken to radiology area for procedure. When the procedure is completed, you will be taken to outpatient where you will be monitored for several hours. You may have one visitor in this area. Other than holding anti-coagulants, patient may take other medication(s) as scheduled. Prior to your appointment date patients are instructed to hold anti-coagulants after discussing with ordering provider to stop. If unable to discontinue anti-coagulants please notify radiologist. ? No aspirin or warfarin (Coumadin) for 7 days prior to the procedure. ? No clopidogrel (Plavix), ticagrelor (Brilinta), prasugrel (Effient) or dabigatran (Pradaxa) for 5 days prior to the procedure. ? No rivaroxaban (Xarelto), apixaban (Eliquis), dipyridamole (Aggrenox or Persantine) or cilostazol (Pletal) for 2 days prior to the procedure. Medications to discontinue per physician: __ASPIRIN 7 DAYS PRE OP Date to take last dose: __08/24/23 Please leave all valuables, including medications, at home the day of procedure. The hospital will not accept responsibility for valuables. Wear comfortable, loose fitting clothing.? Follow any additional instructions given to you from ordering provider. Telephone instructions given to _PATIENT and asked if any additional questions and then verbalized understanding. Patient advised to call scheduling provider office or registration scheduling [phone] if any additional questions.
[2023-08-27 15:23] VITALS: BMI 25.8
[2023-09-01] VITALS (10 sets, daily range): BP systolic 104–122; BP diastolic 52–92; PULSE 61–78; RESP 16–20; TEMP 36.6; O2SAT 100
--- NOTE | ~2023-09-01 | XR_ITS ---
EXAMINATION: XR chest 1V portable DATE: 09/01/2023 12:59 INDICATION: Left lung nodule status post percutaneous biopsy. TECHNIQUE: A single frontal view of the chest was obtained. COMPARISON: Chest single view at 11:58 AM FINDINGS: A calcified right lung nodule and calcified right hilar lymph nodes are consistent with old granulomatous disease. No pleural effusion or pneumothorax. The heart size is normal. IMPRESSION: 1. No acute cardiopulmonary disease. Reviewed, dictated and finalized at location A. R TESTER PRIMARY
--- NOTE | ~2023-09-01 | XR_ITS ---
EXAMINATION: XR chest 1V DATE: 09/01/2023 12:00 INDICATION: Left lung nodule status post percutaneous biopsy. TECHNIQUE: A single frontal view of the chest was obtained. COMPARISON: PET/CT 08/18/2023 FINDINGS: A calcified right lung nodule and calcified right hilar lymph nodes are consistent with old granulomatous disease. No pleural effusion or pneumothorax. The heart size is normal. IMPRESSION: 1. No acute cardiopulmonary disease. Reviewed, dictated and finalized at location A. NNA MACHINE OPERATOR
--- NOTE | ~2023-09-01 | CT_ITS ---
EXAMINATION: CT biopsy lung w/imaging DATE: 09/01/2023 11:58 INDICATION: Left lung lower lobe nodule. TECHNIQUE: The procedure including the risks, benefits, and alternatives and possibility of chest tub e placement were discussed with the patient. Risks discussed included infection, hemorrhage, approxim ately 1/3 risk of pneumothorax, approximately 1/10 risk of pneumothorax severe enough to warrant ches t tube placement, and rarely . The patient understood the risks and agreed to proceed. The patie nt was placed prone. The skin overlying the left lung was prepped and draped in sterile fashion. An esthetic was administered with 1% lidocaine subcutaneously. A 19 gauge outer needle was advanced und er CT guidance to the lesion of interest. A 20 gauge core biopsy needle was then used to obtain 3 cor e biopsy specimens. The needle was removed and the entry site was cleaned and dressed. The mA was adj usted according to patient size. Iterative reconstruction technique was employed. The dose-length pro duct was 171.45 mGy-cm. There were no immediate complications. FINDINGS: CT images demonstrate the outer needle tip adjacent to a 16 mm nodule in left lung lower lo be. IMPRESSION: 1. CT-guided core needle biopsy of a 16 mm nodule in left lung lower lobe. Reviewed, dictated and finalized at location A. CREW MEMBER
--- NOTE | ~2023-09-01 | XR_ITS ---
EXAMINATION: XR chest 1V portable Exam Date/Time: 09/01/2023 14:45 HOUSEKEEPING ASSISTANT HISTORY: Post Image Guided Lung Biopsy Comparison: 09/01/2023 at 12:55 PM. RESULT: Lines, tubes, and devices: None. Lungs and pleura: Clear. Granulomatous calcifications. No pneumothorax. Cardiomediastinal silhouette: Stable. Other: No acute osseous or upper abdominal finding. IMPRESSION: No acute cardiopulmonary process. Reviewed, dictated and finalized at location K. EKEEPING ASSISTANT
[2023-09-01 09:54] LABS: Glucose Point of Care 123 mg/dl (65-105)
[2023-09-01 09:54] LABS: Mean Platelet Volume 8.8 fl (7.4-10.4); Platelet Count Result 255 k/mm3 (150-375)
[2023-09-01 10:14] LABS: INR 0.9
== END 2023-09-01 15:21 | disposition home or self-care (01) ==
PROVIDERS: PCP Internal Medicine; Referring Provider Physician Assistant; Visit Provider Radiology Diagnostic Radiology
PROC: BB24ZZZ Computerized Tomography (CT Scan) of Bilateral Lungs (ICD-10-PCS; CPT 32408; principal; 2023-09-01 11:00)
DX: C78.00 Secondary malignant neoplasm of unspecified lung (principal); R91.1 Solitary pulmonary nodule
CPT/HCPCS: 32408; 36415; 71045; 82948; 85049; 85610; 88305; 88342

== ENCOUNTER 2023-09-18 10:50 | Outpatient (CLI) | payer MEDICARE, SELFPAY ==
--- NOTE | 2023-09-18 11:10 | ECG_ITS ---
Measurements Intervals Newell Rate: 65 P: 75 SD: 192 QRS: 20 QRSD: 77 T: 45 QT: 374 QTc: 389 Interpretive Statements SINUS RHYTHM WITH SINUS ARRHYTHMIA LOW QRS VOLTAGE IN PRECORDIAL LEADS [QRS DEFLECTION < 1.0 mV IN CHEST LEADS] BORDERLINE ECG COMPARED TO ECG 08/01/2019 12:09:56 NO SIGNIFICANT CHANGE Electronically Signed On 09-18-2023 13:34:47 CASH APPLICATIONS REPRESENTATIVE by Jet Real M.D.
[2023-09-18 11:56] LABS: INR 0.9; Prothrombin Time 12.8 Seconds (11.1-14.7)
[2023-09-18 11:57] LABS: Partial Thromboplastin Time 27.3 SECONDS (22.3-36.8)
== END 2023-09-18 10:51 | disposition home or self-care (01) ==
LOC: ANHSURGERY 10:54
PROVIDERS: PCP Internal Medicine; Visit Provider Urology
DX: N20.0 Calculus of kidney (principal); E11.9 Type 2 diabetes mellitus without complications; Z01.818 Encounter for other preprocedural examination
CPT/HCPCS: 36415; 85610; 85730; 87086; 93005

== ENCOUNTER 2023-09-25 03:04 | Day surgery (SDC) | payer MEDICARE, SELFPAY ==
[2023-09-17 09:32] VITALS: BMI 25.5
--- NOTE | 2023-09-17 09:52 | PC.NURSE ---
Report to the Outpatient Waiting Room, entrance under the green pavilion located off [facility], at time _0600_ on date _09/25/23_. Planned Procedure Time: _0730_. Time changes happen often and if your time is changed the preop area will call you the afternoon before. - You and your visitor will be asked to self-screen and do not enter if you have any COVID symptoms. - A mask is optional within the hospital at this time. Patients may have clear liquids (water, carbonated beverages, clear teas, apple juice) until 3 hours prior to surgery with a maximum of 20 ounces. - No food from midnight until time of surgery Take the following medications with a SIP of water the morning of surgery: _NONE_ DO NOT STOP ANY OF YOUR OTHER PRESCRIPTION MEDICATIONS PRIOR TO SURGERY ?EXCEPT THE FOLLOWING Medications to discontinue _PT STATES ALREADY STOPPING ASPIRIN 09/16/23_ Please no make-up, nail yi, hairspray, perfume, deodorant, or body powder the day of surgery. No jewelry (including any body piercings) or valuables the day of surgery, leave them at home. Please take a shower or bath the night before, or the morning of, surgery with an antibacterial soap. Wear comfortable, loose fitting clothing. - Jewelry must be removed prior to entering the operating room. Rings and piercings that are not removed may be cut off. - The hospital will not accept responsibility for valuables. - Please leave all valuables, including medications, at home the day of surgery. If you are going home after surgery, a licensed swing driver must drive you home. - NO public transportation without another adult if you receive anesthesia. - We recommend that an adult stay with you for 24 hours following discharge. - We also recommend that you do not drive, make important decision, drink alcoholic beverages, or take any drugs that were not prescribed by your health care provider for at least 24 hours after your discharge time. Follow any additional instructions given to you from your surgeon. If you or anyone in your household have experienced Covid symptoms in the past week, please notify your surgeon or the nurse liaison at the phone number below for possible testing. Telephone instructions given to _PATIENT_and asked if any additional questions and then verbalized understanding. Patient advised to call surgeon office or pre surgery nurse liaison [phone] if any additional questions.
[2023-09-25] VITALS (7 sets, daily range): BP systolic 107–132; BP diastolic 49–94; PULSE 60–90; RESP 12–20; TEMP 36.2–36.3; O2SAT 98–100
--- NOTE | ~2023-09-25 | XR_ITS ---
Supine and upright views of the abdomen Clinical history: Lithotripsy COMPARISON: 04/03/2023 Findings: Bowel gas pattern is nonspecific. No evidence for obstruction or free air. Right nephrolith iasis is unchanged. Osseous structures are intact. Impression: Stable right nephrolithiasis. Reviewed, dictated and finalized at [facility]. EFFICIENCY SUPERVISOR Impression: Stable right nephrolithiasis.
--- NOTE | 2023-09-25 06:41 | WPDANESEPPF ---
Anes - Initial Pre Proc Eval Procedure: Operation Date: 09/25/23 07:30 Proposed Procedures p Right Renal Extracorporeal Shock Wave Lithotripsy - David Coello MD Date/Time: 09/25/23 06:41 Surgeon: David Coello MD Pre Op Diagnosis: right kidney stone Patient Data Age: 72 Gender: F Height: 1.68 m Weight: 71.81 kg Allergies Allergy/AdvReac Type Severity Reaction Status Date / Time bupropion Allergy Mild Itching Verified 09/25/23 06:24 sulfamethoxazole Allergy Mild Itching Verified 09/25/23 06:24 [From Bactrim] trimethoprim [From Bactrim] Allergy Mild Itching Verified 09/25/23 06:24 Home Medications Medication Instructions Recorded Confirmed Type lancets 33 gauge (OneTouch Delica #100 ea 09/05/19 09/17/23 Rx Lancets) aspirin 81 mg tablet,delayed 81 mg PO DAILY 11/07/19 09/17/23 History release (Adult Low Dose Aspirin) cholecalciferol (vitamin D3) 125 125 mcg PO DAILY 07/12/20 09/17/23 History mcg (5,000 unit) capsule ferrous sulfate 325 mg (65 mg 325 mg PO BID #180 tabs 07/30/22 09/17/23 Rx iron) tablet blood sugar diagnostic #100 ea 01/05/23 09/17/23 Rx pantoprazole 40 mg tablet,delayed 40 mg PO QAM #90 tabs 04/20/23 09/17/23 Rx release metformin 850 mg tablet 850 mg PO BID #200 tabs 05/06/23 09/17/23 Rx levothyroxine 50 mcg tablet 50 mcg PO DAILY #90 tabs 08/03/23 09/17/23 Rx dapagliflozin propanediol 10 mg 10 mg PO DAILY #30 tabs 08/04/23 09/17/23 Rx tablet (Farxiga) lisinopril 10 mg tablet 10 mg PO HS 08/27/23 09/17/23 History rosuvastatin 20 mg tablet (Crestor) 20 mg PO HS 08/27/23 09/17/23 History clobetasol 0.05 % topical ointment 1 applic topical QHS PRN Skin 09/17/23 09/17/23 History Irritation Patient hx anesthesia problems: none Family hx anesthesia problems: none Results Review: All pre-operative results and documents have been reviewed as part of the pre-operative evaluation. 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 Other hyperlipidemia Type 2 diabetes mellitus without complications Uterine prolapse Hysteropexy 1974 Surgical History Surgical History H/O breast biopsy 09/06/04 right breast H/O cataract extraction multiple surgeries, both eyes H/O left wrist surgery H/O lithotripsy H/O vitrectomy H/O: hysterectomy 01/10/03 History of appendectomy 1975 History of bilateral salpingo-oophorectomy 01/10/03 History of bilateral tubal ligation 1975 History of bunionectomy 11/10/05 left foot History of colonoscopy 2000, 2005, 2010, 2015 History of dilation and curettage 1975 History of panretinal photocoagulation History of vaginal surgery 1974 to remove cyst on vaginal wall History of YAG laser capsulotomy of lens multiple surgeries, both eyes Family History Family History Mother Hypertension Carcinoma of colon Father Patient's father is Social History Social History Smoking packs per day: 1 Smoking cigarettes per day: 20.0 Years smoked: 25 Smoking pack-years: 25.00 Smoking status: Former smoker Tobacco type: cigarettes Second hand tobacco smoke exposure: No Smoking end date: 10/19/01 Alcohol intake: never Substance use: never Substance use type: does not use Lack of Transportation: No Lack of Food: Never True Current Housing: I Have Housing Concerned About Future Housing: No Difficulty Paying Gas/Electric Bills: No Difficulty Paying for Meds: No Currently Unemployed: No Education: High School Diploma/GED Difficulty w/ Childcare or Family Care: No Living arrang
[2023-09-25] MEDS: LACTATED RINGERS 1,000 ML 30 ML IV CONT (06:57)
[2023-09-25 07:00] LABS: Glucose Point of Care 110 mg/dl (65-105)
--- NOTE | 2023-09-25 07:12 | PM.IMHP ---
H&P: HPI History of Present Illness Date/Time: 09/25/23 07:12 Chief Complaint: right renal calculus Narrative: 72 yr old female with right renal calculus. 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 Other hyperlipidemia Type 2 diabetes mellitus without complications Uterine prolapse Hysteropexy 1974 Surgical History Surgical History H/O breast biopsy 09/06/04 right breast H/O cataract extraction multiple surgeries, both eyes H/O left wrist surgery H/O lithotripsy H/O vitrectomy H/O: hysterectomy 01/10/03 History of appendectomy 1975 History of bilateral salpingo-oophorectomy 01/10/03 History of bilateral tubal ligation 1975 History of bunionectomy 11/10/05 left foot History of colonoscopy 2000, 2006, 2010, 2016 History of dilation and curettage 1975 History of panretinal photocoagulation History of vaginal surgery 1974 to remove cyst on vaginal wall History of YAG laser capsulotomy of lens multiple surgeries, both eyes Family History Family History Mother Hypertension Carcinoma of colon Father Patient's father is Social History Social History Smoking packs per day: 1 Smoking cigarettes per day: 20.0 Years smoked: 25 Smoking pack-years: 25.00 Smoking status: Former smoker Tobacco type: cigarettes Second hand tobacco smoke exposure: No Smoking end date: 10/19/01 Alcohol intake: never Substance use: never Substance use type: does not use Lack of Transportation: No Lack of Food: Never True Current Housing: I Have Housing Concerned About Future Housing: No Difficulty Paying Gas/Electric Bills: No Difficulty Paying for Meds: No Currently Unemployed: No Education: High School Diploma/GED Difficulty w/ Childcare or Family Care: No Living arrangements: with family Gender identity (if verbalized by the patient): Female Spiritual care concerns: No Meds Home Medications and Allergies Home Medications Medication Instructions Recorded Confirmed Type lancets 33 gauge (GregoryTouch Delica #100 ea 09/05/19 09/17/23 Rx Lancets) aspirin 81 mg tablet,delayed 81 mg PO DAILY 11/07/19 09/17/23 History release (Adult Low Dose Aspirin) cholecalciferol (vitamin D3) 125 125 mcg PO DAILY 07/12/20 09/17/23 History mcg (5,000 unit) capsule ferrous sulfate 325 mg (65 mg 325 mg PO BID #180 tabs 07/30/22 09/17/23 Rx iron) tablet blood sugar diagnostic #100 ea 01/05/23 09/17/23 Rx pantoprazole 40 mg tablet,delayed 40 mg PO QAM #90 tabs 04/20/23 09/17/23 Rx release metformin 850 mg tablet 850 mg PO BID #200 tabs 05/06/23 09/17/23 Rx levothyroxine 50 mcg tablet 50 mcg PO DAILY #90 tabs 08/03/23 09/17/23 Rx dapagliflozin propanediol 10 mg 10 mg PO DAILY #30 tabs 08/04/23 09/17/23 Rx tablet (Farxiga) lisinopril 10 mg tablet 10 mg PO HS 08/27/23 09/17/23 History rosuvastatin 20 mg tablet (Crestor) 20 mg PO HS 08/27/23 09/17/23 History clobetasol 0.05 % topical ointment 1 applic topical QHS PRN Skin 09/17/23 09/17/23 History Irritation Allergies Allergy/AdvReac Type Severity Reaction Status Date / Time bupropion Allergy Mild Itching Verified 09/25/23 06:24 sulfamethoxazole Allergy Mild Itching Verified 09/25/23 06:24 [From Bactrim] trimethoprim [From Bactrim] Allergy Mild Itching Verified 09/25/23 06:24 Vital Signs Vital Signs - 24 hr 09/25/23 06:59 Temperature 36.3 C L Pulse
--- NOTE | 2023-09-25 07:14 | WPDHPUPDATE1 ---
History and Physical Update Update Date/Time: 09/25/23 07:14 History and Physical has been reviewed, including an updated exam of the patient. There are NO changes in the patient's condition. Risks, benefits, and alternatives have been discussed and questions answered. Patient agrees to proceed with procedure. right eswl
[2023-09-25] MEDS: ceFAZolin 2 GM/D5W 50 ML 2 GM/50 ML BAG IVPB (07:26)
--- NOTE | 2023-09-25 08:13 | W.PM.PROC2 ---
Procedure Note - Detailed Date of Procedure 09/25/23 Pre-op Diagnosis right kidney stone Post-op Diagnosis Same Procedure Performed Lithotripsy of right renal calculus 6-7 mm Surgeon David Coello MD Anesthesia General Description of Procedure Patient is taken the operative suite correctly identified. Once anesthesia was obtained she was placed in supine position with the stone localized in both planes. Two thousand five hundred shocks were given to the stone. She did require gating the tolerated procedure well. She is taken recovery stable condition. She will follow-up in 7-10 days with [facility]. This completes dictation on this patient. Please send a copy of op note to my office Estimated Blood Loss 0 Packing No Pathology None sent Complications No immediate complications Condition Stable Disposition PACU
[2023-09-25 08:31] LABS: Glucose Point of Care 112 mg/dl (65-105)
== END 2023-09-25 09:50 | disposition home or self-care (01) ==
PROVIDERS: PCP Internal Medicine; Visit Provider Urology
PROC: (CPT 50590; principal; 2023-09-25 07:30)
DX: N20.0 Calculus of kidney (principal); I10 Essential (primary) hypertension; E11.9 Type 2 diabetes mellitus without complications; E78.49 Other hyperlipidemia; K21.9 Gastro-esophageal reflux disease without esophagitis; Z87.891 Personal history of nicotine dependence; Z79.82 Long term (current) use of aspirin; Z79.84 Long term (current) use of oral hypoglycemic drugs
CPT/HCPCS: 50590; 36415; 74018; 82948; 85610; 85730; 87086; 93005; J0690; J1100; J2405; J2704; J3010; J7120

== ENCOUNTER 2023-09-30 11:21 | Outpatient (CLI) | payer MEDICARE, SELFPAY ==
--- NOTE | ~2023-09-30 | XR_ITS ---
EXAMINATION: XR abdomen/kub 1V INDICATION: Right kidney stone, recent lithotripsy TECHNIQUE: Supine views of the abdomen were obtained on 2 radiographs. COMPARISON: 09/25/2023 FINDINGS: There is a 4 mm stone of the right kidney lower pole which appears to demonstrate slight in terval decrease in size status post reported lithotripsy. No additional urolithiasis is identified. T here are phleboliths of the pelvis. The bowel gas pattern is normal. The visualized lung bases are cl ear. IMPRESSION: 1. Right nephrolithiasis with possible slight decrease in size post reported interval lithotripsy. Reviewed, dictated and finalized at location B. LATORY SCIENTIST IMPRESSION: 1. Right nephrolithiasis with possible slight decrease in size post reported in terval lithotripsy.
== END 2023-09-30 11:22 | disposition home or self-care (01) ==
PROVIDERS: PCP Internal Medicine; Visit Provider Urology
DX: N20.0 Calculus of kidney (principal)
CPT/HCPCS: 74018

== ENCOUNTER 2023-10-14 11:24 | Outpatient (CLI) | payer MEDICARE, SELFPAY ==
[2023-10-14 12:05] LABS: Appearance Urine Turbid (Clear); Bacteria Urine None Seen /hpf; Bilirubin Urine Negative (Negative); Color Urine Yellow (Yellow); Glucose Urine UA 3+ mg/dL (Negative); Ketones Urine Negative (Negative); Leukocyte Esterase Ur 2+ LEU/UL (NEGATIVE); Need Manual Microscopic Reviewed; Nitrate Urine Negative (Negative); Non Pathogenic Casts 0-2; Protein Urine Trace mg/dL (Negative); RBC Urine 0-2 /hpf (0-2); Specific Grav Ur 1.027 (1.001-1.035); Squamous Epithelial Cell Urine Occasional /hpf (Few); Urobilinogen Urine 0.2 mg/dL (<2.0); WBC Urine >100 /hpf (0-3)
[2023-10-14 12:06] LABS: Add Urine Microscopic? YES
[2023-10-14 13:11] LABS: Creatinine Urine 68.9 mg/dL
[2023-10-14 13:15] LABS: MALB Creatinine Ratio 133.5 mg/g (0-30)
== END 2023-10-14 11:25 | disposition home or self-care (01) ==
LOC: ANHLAB 11:28
PROVIDERS: PCP Internal Medicine; Visit Provider Physician Assistant
DX: N39.41 Urge incontinence (principal); R30.0 Dysuria; E11.9 Type 2 diabetes mellitus without complications
CPT/HCPCS: 81001; 82043; 87086; 87088

== ENCOUNTER 2024-02-26 07:27 | Outpatient (CLI) | payer MEDICARE, SELFPAY ==
[2024-02-26 08:07] LABS: Basophils Percent Auto 0.7 % (0.2-1.2); Eosinophils Absolute Auto 0.2 K/mm3 (0-0.3); Eosinophils Percent Auto 4.3 % (0-4.4); Hematocrit 34.8 % (37.0-47.0); Hemoglobin 11.3 g/dL (12.0-15.0); Immature Granulocyte Absolute 0.01 K/mm3 (0.00-0.031); Immature Granulocyte Percent A 0.2 % (0-0.5); Lymphocytes Percent Auto 34.2 % (18.3-44.2); Mean Corpuscular HGB Conc 32.5 g/dl (32-36); Mean Corpuscular Hemoglobin 30.3 pg (26-34); Mean Corpuscular Volume 93.3 fl (80-100); Mean Platelet Volume 9.4 fl (7.4-10.4); Monocytes Absolute Auto 0.3 K/mm3 (0.1-0.6); Monocytes Percent Auto 7.5 % (2.6-8.5); Neutrophils Absolute Auto 2.3 K/mm3 (1.3-6.7); Neutrophils Percent Auto 53.1 % (45.5-73.1); Platelet Count Result 251 k/mm3 (150-375); Red Blood Count 3.73 M/mm3 (4.2-5.4); Red Cell Distribution Width 12.6 % (11.5-14.5); White Blood Count 4.4 K/mm3 (4.5-10.0)
[2024-02-26 08:17] LABS: Alanine Aminotransferase 20 U/L (6-35); Albumin Level 4.4 g/dL (3.5-5.1); Alkaline Phosphatase 97 U/L (38-126); Anion Gap 9 mmol/L (4-12); Aspartate Amino Transferase 24 U/L (14-36); Bilirubin,Total 0.4 mg/dL (0.2-1.3); Blood Urea Nitrogen 25 mg/dL (7-17); Calcium 9.6 mg/dL (8.4-10.2); Carbon Dioxide 23 mmol/L (22-30); Chloride 109 mmol/L (98-107); Cholesterol 134 mg/dL (0-200); Estimated Glomerular Filt Rate 49; Glucose 118 mg/dL (65-110); HDL Direct 50 mg/dL; Potassium 4.3 mmol/L (3.4-5.0); Sodium 141 mmol/L (137-145); Triglycerides 125 mg/dL (<150)
[2024-02-26 08:28] LABS: LDL Cholesterol Direct 58 mg/dL
[2024-02-26 08:53] LABS: MALB Creatinine Ratio 28.2 mg/g (0-30); Microalbumin Urine Random 21.4 mg/L (0-16.7)
[2024-02-26 08:56] LABS: Hemoglobin A1C 5.9 % (<5.7)
[2024-02-26 09:23] LABS: Folic Acid 12.7 ng/mL (2.76->20)
== END 2024-02-26 07:28 | disposition home or self-care (01) ==
LOC: ANHLAB 07:30
PROVIDERS: PCP Internal Medicine; Visit Provider Physician Assistant
DX: E78.5 Hyperlipidemia, unspecified (principal); R53.83 Other fatigue; E03.9 Hypothyroidism, unspecified; E11.9 Type 2 diabetes mellitus without complications
CPT/HCPCS: 36415; 80053; 80061; 82043; 82607; 82746; 83036; 84439; 84443; 85025

== ENCOUNTER 2024-04-11 10:26 | Outpatient (CLI) | payer MEDICARE, SELFPAY ==
--- NOTE | ~2024-04-11 | XR_ITS ---
XR abdomen/kub 1V Ordering provider: David Coello MD History: . RIGHT KIDNEY STONE . Comparison: September 30, 2023 FINDINGS: BOWEL: Nonobstructive bowel gas pattern. ORGANOMEGALY: None. SIGNIFICANT PATHOLOGIC CALCIFICATIONS: None. OTHER: No free air is seen under the diaphragm. Degenerative changes of the spine. IMPRESSION: NO ACUTE ABDOMINAL FINDINGS. Reviewed, dictated and finalized at location A.
== END 2024-04-11 10:27 | disposition home or self-care (01) ==
PROVIDERS: PCP Internal Medicine; Visit Provider Urology
DX: N20.0 Calculus of kidney (principal)
CPT/HCPCS: 74018

== ENCOUNTER 2024-06-29 10:14 | Outpatient (CLI) | payer MEDICARE, SELFPAY ==
[2024-06-29 11:49] LABS: Free T4 Free Thyroxine 1.48 ng/mL (0.78-2.19)
[2024-06-29 11:54] LABS: Thyroid Stimulating Hormone 0.908 uIU/mL (0.465-4.680)
== END 2024-06-29 10:15 | disposition home or self-care (01) ==
PROVIDERS: PCP Internal Medicine; Visit Provider Physician Assistant
DX: E03.9 Hypothyroidism, unspecified (principal)
CPT/HCPCS: 36415; 84439; 84443

== ENCOUNTER 2024-09-29 08:08 | Outpatient (CLI) | payer MEDICARE, SELFPAY ==
[2024-09-29 09:48] LABS: Alanine Aminotransferase 23 U/L (6-35); Albumin Level 4.4 g/dL (3.5-5.1); Alkaline Phosphatase 78 U/L (38-126); Anion Gap 5 mmol/L (4-12); Aspartate Amino Transferase 32 U/L (14-36); Bilirubin,Total 0.5 mg/dL (0.2-1.3); Blood Urea Nitrogen 20 mg/dL (7-17); Calcium 9.7 mg/dL (8.4-10.2); Carbon Dioxide 26 mmol/L (22-30); Chloride 109 mmol/L (98-107); Cholesterol 132 mg/dL (0-200); Estimated Glomerular Filt Rate 44; Glucose 105 mg/dL (65-110); HDL Direct 57 mg/dL; Sodium 140 mmol/L (137-145); Triglycerides 116 mg/dL (<150)
[2024-09-29 09:59] LABS: LDL Cholesterol Direct 42 mg/dL
[2024-09-29 10:16] LABS: Hemoglobin A1C 5.8 % (<5.7)
[2024-09-29 10:45] LABS: Creatinine Urine 72.9 mg/dL
[2024-09-29 10:48] LABS: MALB Creatinine Ratio 18.8 mg/g (0-30); Microalbumin Urine Random 13.7 mg/L (0-16.7)
== END 2024-09-29 08:09 | disposition home or self-care (01) ==
PROVIDERS: PCP Internal Medicine; Visit Provider Internal Medicine
DX: E11.9 Type 2 diabetes mellitus without complications (principal); E78.5 Hyperlipidemia, unspecified; R53.83 Other fatigue; E03.9 Hypothyroidism, unspecified
CPT/HCPCS: 36415; 80053; 80061; 82043; 83036; 84443

== ENCOUNTER 2024-11-29 08:54 | Outpatient (CLI) | payer MEDICARE, SELFPAY ==
--- NOTE | 2024-11-29 | ECG_ITS ---
Test Date: 2024-11-29 09:32:11 Measurements Intervals [place] Rate: 58 P: 59 OR: 194 QRS: 18 QRSD: 78 T: 47 QT: 417 QTc: 410 Interpretive Statements SINUS BRADYCARDIA LOW QRS VOLTAGE IN PRECORDIAL LEADS BORDERLINE ECG No previous ECG available for comparison Electronically Signed On 11-29-2024 09:47:42 ROADING ENGINEER by Elliott Garcia D.O.
--- OUTSIDE RECORDS SUMMARY | 2024-11-29 09:35 | XMS_ITS | Clinical Summary ---
Author [facility] Address [address] [place] [address] Care Team Providers Care Fitter Hand Name Role Phone J Carlos Davison MD Unavailable [phone] Bindu English OD Unavailable [phone] Jony De León DO Primary Care Provider [phone] Allergies Active Allergy Reactions Criticality Noted Date Comments Trimethoprim Itching Low 09/21/2023 Bupropion Swelling Medium Medications lisinopril (PRINIVIL,ZESTRI L) 10 mg tabletIndication s:hypertension Take 1 tablet (10 mg total) by mouth nightly 8 Active metFORMIN (GLUCOPHAGE) 850 mg tabletIndication s:type 2 diabetes mellitus Take 1 tablet (850 mg total) by mouth 2 (two) times a day 8 Active rosuvastatin (CRESTOR) 20 mg tablet Take 1 tablet (20 mg total) by mouth nightly 8 Active aspirin 81 mg tabletIndication s:prevention of thrombosis Take 1 tablet (81 mg total) by mouth every morning Held for surgery. Last dose was 11/09/2023 Active yoauxbjc-pes-hgc ic acid-vit K 400-80 mcg capsule Take 1 capsule by mouth daily Active pantoprazole DR (PROTONIX) 40 mg EC tabletIndication s:Treatment of Non-Bleeding Gastric Disorder Take 1 tablet (40 mg total) by mouth every morning 1 Active OneTouch Ultra Test strip 2 Active FeroSuL 325 mg (65 mg iron) tablet Take 1 tablet (325 mg total) by mouth 2 (two) times a day 2 Active sulfamethoxazole -trimethoprim (BACTRIM DS) 800-160 mg per tablet Take 1 tablet by mouth 2 (two) times a day 3 Active cholecalciferol (VITAMIN D-3) 5,000 unit tablet Take 1 tablet (5,000 Units total) by mouth daily after lunch Active clobetasol propionate, bulk, powder Apply 1 Application topically as needed (itching) Active polyvinyl alcohol-povidone (REFRESH CLASSIC) 1.4-0.6 % dropperette Administer 2 drops into both eyes 3 (three) times a day as needed for dry eyes Active senna (SENOKOT) 8.6 mg tabletIndication s:constipation Take 1 tablet by mouth 2 (two) times a day for 5 days 10 tablet 4 Active oxyCODONE (ROXICODONE) 5 mg immediate release tabletIndication s:Pain Take 1 tablet (5 mg total) by mouth every 6 (six) hours as needed for pain 20 tablet 4 Active Farxiga 10 mg tablet Take 1 tablet (10 mg total) by mouth daily 4 Active levothyroxine (SYNTHROID) 50 mcg tablet Take 1 tablet (50 mcg total) by mouth sanipractic physician before breakfast Active Active Problems Patient Care Coordination No te Formatting of this note migh t be different from the original. Referring provider: Dr. J Carlos Davison Ms. Jessica Garcia is a 72-year-old with a lung nodule. 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 She initially presented to an outside hospital with complaints of pain and was found to have a renal stone. She also was incidentally found to have a 16 mm nodule in the left lower lobe. On 08/18/2023 the patient underwent a PET scan which showed a 60 mm pleural- based nodule in the left lower lung with a maximum SUV of 2.2. On 09/01/2023 the patient underwent a CT-guided biopsy of the left lower lobe lung nodule. Final pathology was consistent metastatic melanoma. On 09/23/2023 the patient underwent a MRI of the abdomen and liver which showed no MR evidence of metastatic disease within the abdomen. There was enhancing left lower lobe lung nodule, in keeping with the patient's biopsy-proven metastatic uveal melanoma. On 09/28/2023 the patient underwent chest CT with contrast which again showed a left lower lobe lung nodule measuring 1.9 cm. There was a few scattered sub 4 mm pulmonary nodules which were indeterminate. Patient is a former smoker. She is scheduled for pulmonary function testing prior to her appointment today. Patient presents today for further surgical evaluation. 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 Stable in size compared to previous. Observe. Went removal of lung metastasis Nov 16, 2023 - followed by oncology Assessment & Plan (02/19/2023 1:21 PM CDT): status post (s/p) EPR 2009. Stable in size compared to previous. Observe. Assessment & Plan (02/20/2022 2:53 PM CDT): status post (s/p) EPR 2009. Stable in size compared to previous. Observe. Assessment & Plan (12/13/2020 2:44 PM SHOW CARD LETTERER): status post (s/p) EPR 2009 Stable, continue observation. Assessment & Plan (11/23/2019 10:17 AM SHOW CARD LETTERER): status post (s/p) EPR 2009 Stable, continue observation. Assessment & Plan (11/03/2018 9:58 AM SHOW CARD LETTERER): status post (s/p) EPR 2009 Stable, continue observation RTC 1 year. 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 Assessment & Plan (02/19/2023 1:21 PM CDT): status post (s/p) pars plana vitrectomy (PPV)/PRP 02/2016 for VH 2/2 PDR/RR left eye (OS) Remains quiescent, observe. Assessment & Plan (02/20/2022 2:53 PM CDT): status post (s/p) pars plana vitrectomy (PPV)/PRP 02/2016 for VH 2/2 PDR/RR left eye (OS) Remains quiescent, observe. Assessment & Plan (12/13/2020 2:45 PM SHOW CARD LETTERER): status post (s/p) pars plana vitrectomy (PPV)/PRP 02/2016 for VH 2/2 PDR/RR left eye (OS) Doing well, stable today, continue observation BP/BG control. She does have some posterior capsule opacity left eye. 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 Assessment & Plan (11/23/2019 10:13 AM SHOW CARD LETTERER): status post (s/p) pars plana vitrectomy (PPV)/PRP 02/2016 for VH 2/2 PDR/RR left eye (OS) Stable today, continue observation BP/BG control Assessment & Plan (11/03/2018 9:49 AM SHOW CARD LETTERER): status post (s/p) pars plana vitrectomy (PPV)/PRP 02/2016 for VH 2/2 PDR/RR left eye (OS) Stable, continue observation BP/BG controlk Vitreous hemorrhage 02/20/2016 Cystoid macular edema 09/29/2013 Diabetes mellitus 09/29/2013 Assessment & Plan (11/16/2023 12:49 PM SHOW CARD LETTERER): - type 2 - SSI while in house Immunizations Name Administration Dates Next Due Influenza, Trivalent, Adjuvanted, Intramuscular 11/09/2019 Influenza, Unspecified 09/01/2016,09/03/2015 ZOSTER LIVE 09/01/2016,09/03/2015 Surgical History Surgery Date Site/Laterality Comments EYE SURGERY 10/19/2009 - 10/18/2010 Left EPR for malignant melanoma VITRECTOMY 02/17/2016 - 03/18/2016 Left VH/PDR surgery RETINAL LASER PROCEDURE 02/17/2016 - 03/18/2016 Left PRP treatment combined w/ PPV in OR CATARACT EXTRACTION W/ INTRAOCULAR LENS IMPLANT Left CT CHEST TUBE INSERTION LEFT 07/12/2023 Left LUNG BIOPSY 09/01/2023 LITHOTRIPSY 09/25/2023 LUNG CANCER SURGERY 11/16/2023 Medical History Medical History Date Comments Diabetes mellitus (HCC) Retinal hemorrhage Hypertension Cancer (CMS/HCC) (HCC) Malignant melanoma of left eye Family History Medical History Relation Name Comments Cancer Father Cataracts Father Glaucoma Father Cancer Mother Cataracts Mother Relation Name Status Comments Father Mother Social History Tobacco Use Types Packs/Day Years Used Date Smoking Tobacco: Former Cigarettes 1 28 1 974 - 2002 Smokeless Tobacco: Never Tobacco Cessation:Counseling Given: Not Answered AUDIT-C Answer Date Recorded Q1: How often do you have a drink containing alcohol? Never 11/16/2023 Q2: How many drinks containi ng alcohol do you have on a typical day when you are drinking? Patient does not drink Q3: How often do you have si x or more drinks on one occasion? Never 11/16/2023 Personal Safety Answer Date Recorded Have you ever been in or are you currently in a harmful physical or emotional relationship or is someone making you feel afraid or unsafe? Denies 11/16/2023 Comments No Sex and Gender Information Value Date Recorded Sex Assigned at Not on file Legal Sex Female 4:18 AM SHOW CARD LETTERER Gender Identity Not on file Sexual Orientation Not on file Obstetrics History Last Filed Vital Signs Vital Sign Reading Time Taken Comments Blood Pressure 145/79 08/22/2024 10:13 AM SHOW CARD LETTERER Pulse 56 08/22/2024 10:13 AM SHOW CARD LETTERER Temperature 36.5 C (97.7 F) 08/22/2024 10:13 AM SHOW CARD LETTERER Respiratory Rate 18 08/22/2024 10:1 3 AM SHOW CARD LETTERER Oxygen Saturation 100% 08/22/2024 10: 13 AM SHOW CARD LETTERER Inhaled Oxygen Concentration - - Weight 70.7 kg (155 lb 12.8 oz) 024 10:13 AM SHOW CARD LETTERER Height 165.1 cm (5' 5 ) 04/18/2024 9:58 AM CDT Body Mass Index 25.93 04/18/2024 9:58 AM CDT Plan of Treatment Health Maintenance Due Date Last Done Comments Albumin Creatinine Ratio, Urine 1950 Breast Cancer Screening-Mammogram 1950 Colon Cancer Screening-Colonoscopy 1950 Depression Screening 1950 Hepatitis C Screening 1950 Osteoporosis Screening-Bone Density Scan 1950 Foot Exam 1950 Lipid Panel 1950 Pneumococcal vaccine 65+ (1 of 2 - PCV) 1956 DTaP/Tdap/Td Vaccine (1 - Tdap) 1961 Hepatitis B Screening 1968 Well Visit 65+ 2015 Zoster Vaccine (1 of 2) 10/27/2016 09/01/2016, 09/03 Hemoglobin A1C 05/11/2024 11/11/2023 Influenza Vaccine (#1) 2024 , 09/01/2016, 09/03/2015 Fall Risk Assessment 11/17/2024 11/17/2023 Dilated Eye Exam 02/24/2025 02/25/2024, 01/2023, 02/20/2022, Additional history exists eGFR 08/22/2025 08/22/2024, 07/0 10/2023, 12/21/2023, Additional history exists Procedures Procedure Name Priority Date/Time Associated Diagnosis Comments EGFR Routine 08/22/2024 8:06 AM SHOW CARD LETTERER Metastatic melanoma (HCC) POCT HEMOGLOBIN A1C Routine 11/11/2023 4 :54 PM SHOW CARD LETTERER from Last 3 Months or Most Recently Relevant to Health Maintenance Results * (ABNORMAL) eGFR (08/22/2024 8:06 AM SHOW CARD LETTERER) eGFR 55(L) >=60 mL/min/1. 73 m2 Comment: Interpretive Data Reference Interval Normal >/= 90 mL/min/1.73m2 Mildly decreased* 60 - 89 mL/min/1.73m2 Mildly to moderately decreased 45 - 59 mL/min/1.73m2 Moderately to severely decreased 30 - 44 mL/min/1.73m2 Severely decreased 15 - 29 mL/min/1.73m2 Kidney Failure < 15 mL/min/1.73m2 *Relative to young adult level Estimated glomerular filtration rate is determined by the 2020 CKD-EPI equation recommended by the National Kidney Foundation (A Unifying Approach to GFR Estimation: Recommendations of the NKF-ASK Task Force on Reassessing the Inclusion of Race in Diagnosing Kidney Disease, JASN 202). The CKD-EPI equation should not be used for patients with unstable renal function and has not been validated in children and those over 70. Current interpretive data was last reviewed 2021. Blood 08/22/2024 8:06 AM SHOW CARD LETTERER 08/22/2024 8:19 AM SHOW CARD LETTERER us J Carlos Davison MD LAB BLOOD ORDERABLES Final Res ult [facility] Department [place] [address] * (ABNORMAL) POCT hemoglobin A1c (11/11/2023 4:54 PM SHOW CARD LETTERER) Hgb A1C, POC 6.6(H) 4.0 - 5.6 % [facility] Est Average Gluc POC 143 mg/dL [facility] Comment: The ADA recommends reporting an estimated Average Glucose (eAG) with all Hemoglobin A1c results using the equation derived from a study of 507 normal and diabetic adults. Minority populations were underrepresented and children were not included. (Diabetes Care 31:8153-3138, 2008). The eAG is not equivalent to a fasting glucose. Blood 11/11/2023 4:54 PM SHOW CARD LETTERER 11/11/2023 4:54 PM SHOW CARD LETTERER us Baldemar Gould MD POINT OF CARE TEST ORD ERABLES Final Result [facility] Department [place] [address] from Last 3 Months or Most Recently Relevant to Health Maintenance Insurance [facility] Address: [facility] [id number] [place] [phone] [facility] Address: [facility] [address] [place] [address] Advance Directives For more information, please contact: [phone] * Full Code (Latest Code Status on File) Date Activated Date Inactivated Comments 11/16/2023 9:46 AM 11/17/2023 4:55 PM Care Teams Fitter Hand Relationship Specialty Start Date End Date Jony De León DO [address] [place], [place] [id number] PCP - General Internal Medicine 08/12/24 J Carlos Davison MD Medical Oncologist/Dope Dry House Operator Medical Oncology 10/05/23 Bindu English, [address] [place] [address] Optometry 02/25/24
--- OUTSIDE RECORDS SUMMARY | 2024-11-29 09:35 | XMS_ITS ---
Author Organization [facility] Address [address] [place] [address] Care Team Providers Care Bed And Breakfast Innkeeper Name Role Phone J Carlos Dvaison MD Unavailable [phone] Bindu English OD Unavailable [phone] Jony De León DO Primary Care Provider [phone] Active Problems Patient Care Coordination No te [...] 11/05/2023 Assessment & Plan (11/16/2023 12:48 PM LABORER PULLET FARM): S/P VATS LLL wedge resection - CT [...] Observe. Assessment & Plan (12/13/2020 2:44 PM LABORER PULLET FARM): status post (s/p) EPR 2009 Stable, continue observation. Assessment & Plan (11/23/2019 10:17 AM LABORER PULLET FARM): status post (s/p) EPR 2009 Stable, continue observation. Assessment & Plan (11/03/2018 9:58 AM LABORER PULLET FARM): status post (s/p) EPR 2009 Stable, continue [...] observe. Assessment & Plan (12/13/2020 2:45 PM LABORER PULLET FARM): status post (s/p) pars plana vitrectomy (PPV)/PRP 02/2016 for VH 2/2 PDR/RR left eye (OS) Doing well, stable today, continue observation BP/BG control. She does have some posterior capsule opacity left eye. 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 Assessment & Plan (11/23/2019 10:13 AM LABORER PULLET FARM): status post (s/p) pars plana vitrectomy (PPV)/PRP 02/2016 for VH 2/2 PDR/RR left eye (OS) Stable today, continue observation BP/BG control Assessment & Plan (11/03/2018 9:49 AM LABORER PULLET FARM): status post (s/p) pars plana vitrectomy (PPV)/PRP 02/2016 for VH 2/2 PDR/RR left eye (OS) Stable, continue observation BP/BG controlk Vitreous hemorrhage 02/20/2016 Cystoid macular edema 09/29/2013 Diabetes mellitus 09/29/2013 Assessment & Plan (11/16/2023 12:49 PM LABORER PULLET FARM): - type 2 - SSI while in house Current Oncology Plans No current plan information found. Past Plans No past plan information found. Radiation Treatments * No radiation treatments are documented for this patient in [facility]. Treatments may have been administered in another system. Lifetime Dose Tracking * Chemical Lifetime Dose Automatic Entry Manual Entr y DLP 730 mGycm 730 mGycm 0 mGycm
--- OUTSIDE RECORDS SUMMARY | 2024-11-29 09:35 | XMS_ITS | Clinical Summary ---
Author Organization [facility] Address [address] [place] [id number] Care Team Providers Care Paraprofessional Aide Teacher Name Role Phone Unavailable Primary Care Provider Unavailabl e Social History Tobacco Use Types Packs/Day Years Used Date Smoking Tobacco: Never Assessed Comments Unknown Sex and Gender Information Value Date Recorded Sex Assigned at Not on file Legal Sex Female 8:06 AM CDT Gender Identity Not on file Sexual Orientation Not on file Plan of Treatment Health Maintenance Due Date Last Done Comments Colorectal Cancer Screening Colonoscopy (10 Years) 1950 Hepatitis C 1968 DTaP, Tdap and Td Vaccines ( 1 - Tdap) 1969 Mammogram Screening 1990 Zoster Vaccines (1 of 2) 2000 Dexa Scan (General) 2015 Pneumococcal Vaccine: 65+ Ye ars (1 of 1 - PCV) 2015 COVID-19 Vaccine ( - 2023-2 5 season) 2024 Influenza Adult (#1) 2024 RSV Immunization or 60+ Years (1 - 1-dose 75+ series) 2025 Meningococcal B Vaccine Aged Out No l onger eligible based on patient's age to complete this topic Meningococcal Vaccine Aged Out No leonid malina eligible based on patient's age to complete this topic RSV Immunizations Under 20 Months Aged Out No longer eligible based on patient's age to complete this topic
--- OUTSIDE RECORDS SUMMARY | 2024-11-29 09:35 | XMS_ITS | Referral Summary ---
Author Organization [email or web address] Address [address] [place] [address] Care Team Providers Care Parks Worker Name Role Phone J Carlos Davison MD Unavailable [phone] Bindu English OD Unavailable [phone] Jony De León DO Primary Care Provider [phone] Allergies Active Allergy Reactions Criticality Noted Date [...] for surgery. 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 Assessment & Plan (12/13/2020 2:44 PM DISHROOM ATTENDANT): status post (s/p) EPR 2009 Stable, continue observation. Assessment & Plan (11/23/2019 10:17 AM DISHROOM ATTENDANT): status post (s/p) EPR 2009 Stable, continue observation. Assessment & Plan (11/03/2018 9:58 AM DISHROOM ATTENDANT): status post (s/p) EPR 2009 Stable, continue [...] observe. 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 She does have some posterior capsule opacity left eye. 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 Diabetes mellitus 09/29/2013 Assessment & Plan (11/16/2023 12:49 PM DISHROOM ATTENDANT): - type 2 - SSI while in house Immunizations Name Administration Dates Next Due Influenza, Trivalent, Adjuvanted, Intramuscular 11/09/2019 Influenza, Unspecified 09/01/2016,09/03/2015 ZOSTER LIVE 09/01/2016,09/03/2015 Social History Tobacco Use Types Packs/Day Years [...] on file Legal Sex Female 4:18 AM DISHROOM ATTENDANT Gender Identity Not on file Sexual Orientation Not on file Last Filed Vital Signs Vital Sign Reading Time Taken Comments Blood Pressure 145/79 08/22/2024 10:13 AM DISHROOM ATTENDANT Pulse 56 08/22/2024 10:13 AM DISHROOM ATTENDANT Temperature 36.5 C (97.7 F) 08/22/2024 10:13 AM DISHROOM ATTENDANT Respiratory Rate 18 08/22/2024 10:1 3 AM DISHROOM ATTENDANT Oxygen Saturation 100% 08/22/2024 10: 13 AM DISHROOM ATTENDANT Inhaled Oxygen Concentration - - Weight 70.7 kg (155 lb 12.8 oz) 024 10:13 AM DISHROOM ATTENDANT Height 165.1 cm (5' 5 ) 04/18/2024 9:58 AM CDT Body Mass Index 25.93 04/18/2024 9:58 AM CDT Plan of Treatment Not on file Procedures Procedure Name Priority Date/Time Associated Diagnosis Comments EGFR Routine 08/22/2024 8:06 AM DISHROOM ATTENDANT Metastatic melanoma (HCC) POCT HEMOGLOBIN A1C Routine 11/11/2023 4 :54 PM DISHROOM ATTENDANT from Last 3 Months or Most Recently Relevant to Health Maintenance Results * (ABNORMAL) eGFR (08/22/2024 8:06 AM DISHROOM ATTENDANT) eGFR 55(L) >=60 mL/min/1. 73 m2 Comment: [...] of Race in Diagnosing Kidney Disease, JASN 2020). The CKD-EPI equation should not be used for patients with unstable renal function and has not been validated in children and those over 70. Current interpretive data was last reviewed 2021. Blood 08/22/2024 8:06 AM DISHROOM ATTENDANT 08/22/2024 8:19 AM DISHROOM ATTENDANT us J Carlos Davison MD LAB BLOOD ORDERABLES Final Res ult [facility] Department of Laboratories [place], [place] [id number] * (ABNORMAL) POCT hemoglobin A1c (11/11/2023 4:54 PM DISHROOM ATTENDANT) Hgb A1C, POC 6.6(H) 4.0 - 5.6 % [facility] Est Average Gluc POC 143 mg/dL [facility] Comment: The ADA recommends reporting an estimated Average Glucose (eAG) with all Hemoglobin A1c results using the equation derived from a study of 507 normal and diabetic adults. Minority populations were underrepresented and children were not included. (Diabetes Care 31:3338-8188, 2008). The eAG is not equivalent to a fasting glucose. Blood 11/11/2023 4:54 PM DISHROOM ATTENDANT 11/11/2023 4:54 PM DISHROOM ATTENDANT Baldemar Gould MD POINT OF CARE TEST ORD ERABLES Final Result [facility] Department [place] [address] from Last 3 Months or Most Recently Relevant to Health Maintenance Insurance MEDICARE [employer] [facility] MEDICARE Address: [facility] [address] [place] [address] MEDICARE [employer] [facility] MEDICARE Address: [address] [address] Advance Directives For more information, please contact: [phone] * Full Code (Latest Code Status on File) Date Activated Date Inactivated Comments 11/16/2023 9:46 AM 11/17/2023 4:55 PM Care Teams Parks Worker Relationship Specialty Start Date End Date Jony De León DO [address] [place], [place] [id number] PCP - General Internal Medicine 08/12/24 J Carlos Davison MD Medical Oncologist/[facility] 10/05/23 Bindu English OD [address] [place] [address] Optometry 02/25/24
[2024-11-29 09:59] LABS: Alanine Aminotransferase 28 U/L (6-35); Alkaline Phosphatase 93 U/L (38-126); Anion Gap 10 mmol/L (4-12); Aspartate Amino Transferase 28 U/L (14-36); Bilirubin,Total 0.5 mg/dL (0.2-1.3); Blood Urea Nitrogen 21 mg/dL (7-17); Calcium 9.4 mg/dL (8.4-10.2); Carbon Dioxide 26 mmol/L (22-30); Chloride 105 mmol/L (98-107); Estimated Glomerular Filt Rate 56; Glucose 128 mg/dL (65-110); Potassium 4.3 mmol/L (3.4-5.0); Sodium 141 mmol/L (137-145)
== END 2024-11-29 08:55 | disposition home or self-care (01) ==
LOC: ANHLAB 08:56
PROVIDERS: PCP Internal Medicine; Visit Provider Podiatrist Foot & Ankle Surgery
DX: R03.0 Elevated blood-pressure reading, without diagnosis of hypertension (principal); Z01.818 Encounter for other preprocedural examination
CPT/HCPCS: 36415; 80053; 93005

== ENCOUNTER 2025-03-17 08:11 | Outpatient (CLI) | payer MEDICARE, SELFPAY ==
--- NOTE | ~2025-03-17 | DEXA_ITS ---
Bone Density Report Name: KM ALFRED Age: 74 Sex: Female Ethnicity: White Date of : 1950 Indication: postmenopausal; screening for osteoporosis; parental hip fracture; height loss; prior fracture; cancer; hysterectomy; Referring Provider: SANA THOMPSON Study: Bone densitometry was performed. Exam Date: March 17, 2025 Accession number: [id number] Bone Density: Region BMD T-score Z-score Classification AP Spine(L3, L4) 1.355 2.3 4.8 Normal Femoral Neck (Left) 0.740 -1.0 1.1 Normal Total Hip (Left) 0.864 -0.6 1.1 Normal Femoral Neck (Right) 0.716 -1.2 0.8 Osteopenia Total Hip (Right) 0.818 -1.0 0.7 Normal Total Hip Mean 0.841 -0.8 0.9 Normal World Health Organization criteria for BMD impression classify patients as: Normal (T-score at or above -1.0), Osteopenia (T-score between -1.0 and -2.5), or Osteoporosis (T-score at or below -2.5). 10-year Fracture Risk(1): Major Osteoporotic Fracture 24% Hip Fracture 9.2% Reported Risk Factors: [place] (), Neck BMD=0.716, BMI=25.5, previous fracture, parental fracture (1) FRAX(R) Version 3.08. Fracture probability calculated for an untreated patient. Fracture probability may be lower if the patient has received treatment. Previous Exams: Region Exam Age BMD T-score BMD Change BMD Change Date g/cm2 vs Baseline vs Previous AP Spine (L3-L4) 03/17/2025 74 1.355 2.3 0.197 (17.0%)# 0.175 (14.8%)* 05/12/2018 67 1.181 0.7 0.022 (1.9%)# 0.066 (5.9%)# 05/09/2016 65 1.115 0.1 -0.044 (-3.8%) -0.044 (-3.8%) 01/03/2014 63 1.159 0.5 Total Hip(Left) 03/17/2025 74 0.864 -0.6 -0.094 (-9.8%) -0.080 (-8.5%) 10/06/2022 71 0.944 0.0 -0.014 (-1.5%) -0.017 (-1.8%) 08/08/2020 69 0.961 0.2 0.003 (0.3%) -0.003 (-0.3%) 05/12/2018 67 0.964 0.2 0.006 (0.7%)# -0.027 (-2.7%) 05/09/2016 65 0.991 0.4 0.033 (3.5%)* 0.033 (3.5%)* 01/03/2014 63 0.958 0.1 Total Hip(Right) 03/17/2025 74 0.818 -1.0 -0.104 (-11.3% -0.044 (-5.2%) 10/06/2022 71 0.862 -0.7 -0.059 (-6.4%) -0.035 (-3.9%) 08/08/2020 69 0.897 -0.4 -0.024 (-2.7%) -0.036 (-3.8%) 05/12/2018 67 0.933 -0.1 0.011 (1.2%)# -0.025 (-2.6%) 05/09/2016 65 0.958 0.1 0.036 (3.9%)* 0.036 (3.9%)* 01/03/2014 63 0.922 -0.2 *Denotes significance at 95% confidence level, LSC for AP Spine = 0.022 g/cm2, LSC for Total Hip = 0.027 g/cm2 # Denotes dissimilar scan types or analysis methods Clinical Information Provided by Patient: Has had a low trauma fracture Parent has had a hip fracture Has used the following medications: Vitamin D Has the following medical conditions: Cancer, Hysterectomy Patient maximum height was 66 Menopause Age: 52 No regular weight bearing exercise Drinks caffeinated beverages Onset of menses at age 13 Number of children 2 Impression: The patient has low bone mass, based on the Right Femoral Neck T-score. The patient has an estimated ten-year risk of hip fracture of 9.2% and an estimated ten-year risk of major fracture of 24%, based on the WHO FRAX algorithm. The patient has risk factors, including: parental hip fracture, previous fracture. The BMD for the Total Hip(Left) decreased, changing by -8.5% since the last DXA exam. The BMD for the Total Hip(Right) decreased, changing by -5.2% since the last DXA exam. Discussion: BONE DENSITY IS LOW AT ONE OR MORE SKELETAL SITES. THE PATIENT'S BMD AND CLINICAL RISK FACTORS CONTRIBUTE TO THIS PATIENT'S HIGH RISK OF FRACTURE. This patient's lowest T-score is low at one or more skeletal sites. It meets the World Health Organization's (WHO) criteria for ?low bone mass? (T-score between -1.0 and -2.5). The patient's 10-year risk of hip fracture and 10 year risk of a major osteoporotic fracture as calculated by FRAX exceeds the threshold where pharmacological therapy is recommended by the National Osteoporosis Foundation (NOF). However, all treatment decisions require clinical judgment and consideration of individual patient factors, including patient preferences, comorbidities, previous drug use, risk factors not captured in the FRAX model (e.g., frailty, falls, vitamin D deficiency, increased bone turnover, interval significant decline in bone density) and possible under or overestimation of fracture risk by FRAX. The patient should follow a healthful lifestyle (good nutrition with adequate calcium and vitamin D, and appropriate weight-bearing exercise). Follow-Up: Consider a repeat BMD and Vertebral Fracture Assessment (VFA) exam in 2 years or sooner if medically necessary, to reassess this patient's status. Reported by: DELORIS on 03/17/2025 8:51:00 AM. Reviewed, dictated and finalized at location A.
--- NOTE | ~2025-03-17 | MM_ITS ---
EXAMINATION: MM screening [facility] BI w jonelle HISTORY: Screening TECHNIQUE: Craniocaudal and mediolateral oblique 3-D tomosynthesis images were obtained and synthetic 2-D images were generated. CAD analysis was submitted and interpreted. COMPARISON: Comparison to multiple prior studies sequentially, with oldest reviewed study dated 05/12. BREAST PARENCHYMAL COMPOSITION: Not dense: There are scattered areas of fibroglandular density. FINDINGS: Stable asymmetry in the upper outer quadrant of the right breast, posterior third. Stable m ass in the lower outer quadrant of the right breast with peripheral coarse calcifications. There is a new focal asymmetry medially in the left breast, middle depth, on CC view only. IMPRESSION: 1. New focal left breast asymmetry. 2. Additional mammographic views and possible breast ultrasound are recommended. BI-RADS Category 0: Incomplete: Needs additional imaging evaluation. Reviewed, dictated and finalized at location A. IMPRESSION: 1. New focal left breast asymmetry. 2. Additional mammographic views and possible breast ultrasound are recommended . BI-RADS Category 0: Incomplete: Needs additional imaging evaluation.
--- OUTSIDE RECORDS SUMMARY | 2025-03-17 08:18 | XMS_ITS ---
Author Organization [facility] Address [address] [place] [address] Care Team Providers Care Assembly Technician Name Role Phone J Carlos Davison MD Unavailable [phone] Bindu English OD Unavailable [phone] Jony De León DO Primary Care Provider [phone] Active Problems Patient Care Coordination No te [...] 11/05/2023 Assessment & Plan (11/16/2023 12:48 PM SIENE MAKER): S/P VATS LLL wedge resection - CT [...] post (s/p) EPR 2009 Assessment & Plan (02/23/2025 12:46 PM CDT): status post (s/p) EPR 2009. Stable in size compared to previous. Observe. Wedge resection of lung metastasis Nov 16, 2023 - followed by oncology, most recent CT chest was noted to be stable at visit 12/2024. Assessment & Plan (02/25/2024 3:06 PM CDT): [...] Observe. Assessment & Plan (12/13/2020 2:44 PM SIENE MAKER): status post (s/p) EPR 2009 Stable, continue observation. Assessment & Plan (11/23/2019 10:17 AM SIENE MAKER): status post (s/p) EPR 2009 Stable, continue observation. Assessment & Plan (11/03/2018 9:58 AM SIENE MAKER): status post (s/p) EPR 2009 Stable, continue observation RTC 1 year. 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 Assessment & Plan (02/25/2024 2:46 PM CDT): [...] observe. 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 She does have some posterior capsule opacity left eye. 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 Past Treatment and Therapy Plans No past plan information found. Lifetime Dose Tracking * Chemical Lifetime Dose Automatic Entry Manual Entr y DLP 928 mGycm 928 mGycm 0 mGycm
--- OUTSIDE RECORDS SUMMARY | 2025-03-17 08:18 | XMS_ITS | Clinical Summary ---
Author Organization [facility] Address [address] [place] [address] Care Team Providers Care Double Needle Operator Name Role Phone J Carlos Davison MD Unavailable [phone] Bindu English OD Unavailable [phone] Jony De León DO Primary Care Provider [phone] Allergies Active Allergy Reactions Criticality Noted Date [...] for surgery. 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 Assessment & Plan (12/13/2020 2:44 PM RIDE MECHANIC): status post (s/p) EPR 2009 Stable, continue observation. Assessment & Plan (11/23/2019 10:17 AM RIDE MECHANIC): status post (s/p) EPR 2009 Stable, continue observation. Assessment & Plan (11/03/2018 9:58 AM RIDE MECHANIC): status post (s/p) EPR 2009 Stable, continue [...] observe. 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 She does have some posterior capsule opacity left eye. 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 Encounters Date Type Department Care Team Description 02/23/2025 12:30 PM CDT Office Visit [facility] [address] [facility] 6th [place] [address] Magi Cruz MD 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); Post-radiation retinopathy, subsequent encounter 12/26/2024 9:15 AM CDT Office Visit [facility] [address] [place] [address] 6 [place] [address] Shamar Hoskins MD PhD Metastatic melanoma (HCC) (Primary Dx); Seborrheic keratosis; Multiple benign nevi; Rosales angioma; Ganglion cyst of dorsum of right wrist 12/19/2024 11:00 AM RIDE MECHANIC Office Visit [facility] 6 [place] [address] J Carlos Davison MD Metastatic melanoma (HCC) 12/19/2024 10:15 AM RIDE MECHANIC Clinical Support [facility] - Lab Collection [address] [facility] Floor 6 [place] [address] Metastatic melanoma (HCC) 12/19/2024 10:00 AM RIDE MECHANIC Lab [facility] [address] [facility] Floor 6 [place] [address] Metastatic melanoma (HCC) 12/19/2024 6:59 AM RIDE MECHANIC - 12/19/2024 11:59 PM RIDE MECHANIC Hospital Encounter [facility] [address] [place] [address] Metastatic melanoma (HCC) Discharge Disposition: Discharge to home or self care 12/19/2024 6:59 AM RIDE MECHANIC - 12/19/2024 11:59 PM RIDE MECHANIC Hospital Encounter [facility] [address] [place] [phone] Metastatic melanoma (HCC) Discharge Disposition: Discharge to home or self care from Last 3 Months Immunizations Immunization Administration Dates Next Due Influenza, Trivalent, Adjuvanted, [...] Diabetes mellitus (HCC) Retinal hemorrhage Hypertension Cancer (HCC) Malignant melano ma of left eye 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) Thyroid disease Family History Medical History Relation Name Comments Cancer Father Cataracts Father Glaucoma Father Cancer Mother Cataracts Mother Relation Name Status Comments Father Mother Social History Tobacco Use Types Packs/Day Years Used Date Smoking Tobacco: Former Cigarettes 1 28 1 974 - 2001 Smokeless Tobacco: Never Tobacco Cessation:Counseling Given: Not [...] on file Legal Sex Female 4:18 AM RIDE MECHANIC Gender Identity Not on file Sexual Orientation Not on file Obstetrics History Last Filed Vital Signs Vital Sign Reading Time Taken Comments Blood Pressure 117/69 12/19/2024 10:24 AM RIDE MECHANIC Pulse 74 12/19/2024 10:24 AM RIDE MECHANIC Temperature 36.4 C (97.5 F) 12/19/2024 10:24 AM RIDE MECHANIC Respiratory Rate 18 12/19/2024 10:24 AM RIDE MECHANIC Oxygen Saturation 97% 12/19/2024 10:24 AM RIDE MECHANIC Inhaled Oxygen Concentration - - Weight 69.9 kg (154 lb) 12/19/2024 10:24 AM RIDE MECHANIC Height 165.1 cm (5' 5) 04/18/2024 9:58 AM CDT Body Mass Index 25.63 04/18/2024 9:58 AM CDT Plan of Treatment Health Maintenance Due Date Last Done Comments Albumin Creatinine Ratio, Urine 1950 Breast Cancer Screening-Mammogram 1950 Colon Cancer Screening-Colonoscopy 1950 Depression Screening 1950 Hepatitis C Screening 1950 Osteoporosis Screening-Bone Density Scan 1950 Foot Exam 1950 Lipid Panel 1950 DTaP/Tdap/Td Vaccine (1 - Tdap) 1961 Hepatitis B Screening 1968 Pneumococcal vaccine 65+ (1 of 2 - PCV) 1969 Well Visit 65+ 2015 Zoster Vaccine (1 of 2) 10/27/2016 09/01/2016, 09/03 Hemoglobin A1C 05/11/2024 11/11/2023 Fall Risk Assessment 11/17/2024 11/17/2023 Influenza Vaccine (Season Ended) 2025 11/09/2019, 09/01/2016, 09/03/2015 eGFR 12/19/2025 12/19/2024, 1101/2024, 04/18/2024, Additional history exists Dilated Eye Exam 02/23/2026 02/23/2025, 06/2024, 02/19/2023, Additional history exists Procedures Procedure Name Priority Date/Time Associated Diagnosis Comments FUNDUS PHOTOS/FAF - OS - LEFT EYE Routine 02/23/2025 12:46 PM CDT 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) EGFR Routine 12/19/2024 10:04 AM RIDE MECHANIC Metastatic melanoma (HCC) DIFFERENTIAL AUTO Routine 12/19/2024 10: 04 AM RIDE MECHANIC Metastatic melanoma (HCC) CBC WITH AUTO DIFFERENTIAL Routine 12/19/2024 10:04 AM RIDE MECHANIC Metastatic melanoma (HCC) COMPREHENSIVE METABOLIC PANEL Routine 12/19/2024 10:04 AM RIDE MECHANIC Metastatic melanoma (HCC) LACTATE DEHYDROGENASE Routine 12/19/2024 10:04 AM RIDE MECHANIC Metastatic melanoma (HCC) GAMMA GT Routine 12/19/2024 10:04 AM RIDE MECHANIC Metastatic melanoma (HCC) CT CHEST W CONTRAST Schedule Routine, Read Routine (OP Routine) 12/19/2024 9:38 AM RIDE MECHANIC Metastatic melanoma (HCC) POCT CREATININE - DEVICE Routine 12/19/2024 9:28 AM RIDE MECHANIC MRI ABDOMEN LIVER W WO CONTRAST Schedule Routine, Read Routine (OP Routine) 12/19/2024 8:59 AM RIDE MECHANIC Metastatic melanoma (HCC) POCT HEMOGLOBIN A1C Routine 11/11/2023 4 :54 PM RIDE MECHANIC from Last 3 Months or Most Recently Relevant to Health Maintenance Results * Fundus Photos/FAF - OS - Left Eye (02/23/2025 12:46 PM CDT) Anatomical Region Laterality Modality Head Fundus Photograp hy Narrative 02/23/2025 12:46 PM CDT Quality was good. Progression has been stable. Notes Peripheral laser scars with stable inferotemporal pigmented tumor . us Hector Rosales MD OPHTH PHOTOGRAPHY Babita l Result * eGFR (12/19/2024 10:04 AM RIDE MECHANIC) eGFR 60 >=60 mL/min/1. 73 m2 Comment: Interpretive Data [...] interpretive data was last reviewed 2021. Blood 12/19/2024 10:0 4 AM RIDE MECHANIC 12/19/2024 10:12 AM RIDE MECHANIC us Jersey Sanabria NP LAB BLOOD ORDERABLES Babita l Result [facility] Department [place] [address] * Differential, auto (12/19/2024 10:04 AM RIDE MECHANIC) Neutrophil abs 3.2 1.5 - 6.5 K/cumm Comment:Testing performed by : [facility], [address] [place] [phone] Lymphocyte abs 1.5 0.8 - 3.3 K/cumm [facility] Comment:Testing performed by : [facility], [address] [place] [phone] Monocyte abs 0.4 0.2 - 0.8 K/cumm [facility] Comment:Testing performed by : [facility], [address] [place], [place] [id number] Eosinophil abs 0.1 0.0 - 0.5 K/cumm [facility] Comment:Testing performed by : [facility], [address] [place], [place] [id number] Basophil abs 0.0 0.0 - 0.1 K/cumm [facility] Comment:Testing performed by : [facility], [address] [place], [place] [id number] Neutrophil pct 61.0 % [facility] Comment: Interpretive Data Percent cell count reference ranges are not reported, since discordance with absolute values may lead to misinterpretation of CBC data. Current Interpretive Data was last revised on 2018. Testing performed by: [facility], [address] [place] [phone] Lymphocyte pct 28.2 % [facility] Comment: Interpretive Data Percent cell count reference ranges are not reported, since discordance with absolute values may lead to misinterpretation of CBC data. Current Interpretive Data was last revised on 2018. Testing performed by: [facility], [address] [place] [phone] Monocyte pct 7.6 % [facility] Comment: Interpretive Data Percent cell count reference ranges are not reported, since discordance with absolute values may lead to misinterpretation of CBC data. Current Interpretive Data was last revised on 2018. Testing performed by: [facility], [address] [place] [phone] Eosinophil pct 2.8 % [facility] Comment: Interpretive Data Percent cell count reference ranges are not reported, since discordance with absolute values may lead to misinterpretation of CBC data. Current Interpretive Data was last revised on 2018. Testing performed by: [facility], [address] [place] [address] Basophil pct 0.4 % [facility]END[facility] Comment: Interpretive Data Percent cell count reference ranges are not reported, since discordance with absolute values may lead to misinterpretation of CBC data. Current Interpretive Data was last revised on 2018. Testing performed by: [facility], [address] [place] [address] Blood 12/19/2024 10:0 4 AM RIDE MECHANIC 12/19/2024 10:09 AM RIDE MECHANIC Jersey Sanabria SENIOR RESEARCH ASSOCIATE LAB BLOOD ORDERABLES Babita l Result [facility] Department [place] [address] * (ABNORMAL) CBC with auto differential (12/19/2024 10:04 AM RIDE MECHANIC) WBC 5.3 3.8 - 9.9 K/cumm Comment:Testing performed by : [facility], [address] [place] [address] Hgb 11.6(L) 11.9 - 15.5 g/dL WENDY FREY Comment:Testing performed by : [facility], [address] [place] [address] Hct 33.9(L) 35.6 - 45.5 % WENDY FREY Comment:Testing performed by : [facility], [address] [place] [address] Plt 291 150 - 400 K/cumm WENDY FREY Comment:Testing performed by : [facility], [address] [place] [address] MPV 7.5 6.8 - 10.4 fL WENDY FREY Comment:Testing performed by : [facility], [address] [place], [place] [phone] RBC 3.82(L) 3.90 - 5.20 M/cumm [facility] Comment:Testing performed by : [facility], [address] [place], [place] [phone] MCV 88.7 81.3 - 96.4 fL [facility] Comment:Testing performed by : [facility], [address] [place], [place] [id number] MCH 30.3 27.1 - 33.3 pg [facility] Comment:Testing performed by : [facility], [address] [place], [place] [id number] MCHC 34.2 32.3 - 35.7 g/dL [facility] Comment:Testing performed by : [facility], [address] [place], [place] [id number] RDW CV 13.4 11.1 - 14.9 % [facility] Comment:Testing performed by : [facility], [address] [place], [place] [id number] NRBC abs 0.00 0.00 - 0.01 K/cumm [facility] Comment:Testing performed by : [facility], [address] [place], [place] [id number] Blood 12/19/2024 10:0 4 AM RIDE MECHANIC 12/19/2024 10:09 AM RIDE MECHANIC Jersey Sanabria NP LAB BLOOD ORDERABLES Babita l Result [facility] Department [place] [address] * Lactate dehydrogenase (LD) (12/19/2024 10:04 AM RIDE MECHANIC) Lactate dehydrogenase (LDH) 139 100 - 250 Units/L Blood 12/19/2024 10:0 4 AM RIDE MECHANIC 12/19/2024 10:12 AM RIDE MECHANIC Jersey Sanabria NP LAB BLOOD ORDERABLES Babita l Result Performing Organization Address City/[facility] Co de Phone Number [facility] Department [place] [address] * Gamma GT (12/19/2024 10:04 AM RIDE MECHANIC) [facility] GGT 15 5 - 35 Units/L Blood 12/19/2024 10:0 4 AM RIDE MECHANIC 12/19/2024 10:12 AM RIDE MECHANIC Jersey Sanabria NP LAB BLOOD ORDERABLES Babita l Result Performing Organization Address [facility] de Phone Number [facility] Department [place] [address] * (ABNORMAL) Comprehensive metabolic panel (12/19/2024 10:04 AM RIDE MECHANIC) [facility] Sodium 130(L) 135 - 145 mmol/L Potassium, pl 4.0 3.3 - 4.9 mmol/L [facility] Chloride 99 97 - 110 mmol/L [facility] CO2 26 22 - 32 mmol/L [facility] Anion gap 5 2 - 15 mmol/L [facility] BUN 20 6 - 25 mg/dL [facility] Creatinine 0.99 0.60 - 1.10 mg/dL [facility] Glucose 109 70 - 199 mg/dL [facility] Comment: Interpretive Data Fasting glucose >/= 126 mg/dl is diagnostic for diabetes. Fasting is defined as no caloric intake for at least 8 hours. Fasting glucose between 100 mg/dl to 125 mg/dl is diagnostic of prediabetes. In a patient with classic symptoms of hyperglycemia or hyperglycemic crisis, a random glucose >/= 200 mg/dl is diagnostic for diabetes. In the absence of unequivocal hyperglycemia, results should be confirmed by repeat testing. The classification and Diagnosis of Diabetes Diabetes Care 2021; 46: S19-S40. Current interpretive data was last revised 2022. Calcium 8.9 8.5 - 10.3 mg/dL [facility] Bilirubin, total 0.3 0.1 - 1.2 mg/dL [facility] Protein, pl 6.4(L) 6.5 - 8.5 g/dL [facility] Albumin 4.0 3.5 - 5.0 g/dL [facility] Alk phos 83 40 - 130 Units/L [facility] ALT 14 7 - 45 Units/L [facility] AST 18 10 - 45 Units/L [facility] Blood 12/19/2024 10:0 4 AM RIDE MECHANIC 12/19/2024 10:12 AM RIDE MECHANIC us Jersey Sanabria NP LAB BLOOD ORDERABLES Babita l Result [facility] One [facility] Department [place] [address] * CT Chest W Contrast (12/19/2024 9:38 AM RIDE MECHANIC) Anatomical Region Laterality Modality Body N/A Computed Tomogra phy 12/19/2024 10:2 9 AM RIDE MECHANIC Impressions 12/19/2024 10:29 AM RIDE MECHANIC 1. No evidence of disease progression with stable right middle lobe pulmonary nodules dating back to 09/28/2023, favored to be benign.. 2. Unchanged small right breast mass which probably represents a fibroadenoma given stability Electronically signed by: Eduardo Benitez M.D. Narrative 12/19/2024 10:29 AM RIDE MECHANIC EXAMINATION: CT chest with intravenous contrast HISTORY: 74-year-old female with metastatic melanoma TECHNIQUE: Computed tomographic images of the chest were obtained after administration of 68 mL of Optiray 350 intravenous contrast per standard protocol. COMPARISON:08/22/2024 FINDINGS: No supraclavicular, axillary, mediastinal, or hilar lymphadenopathy. Calcified lymph nodes compatible with changes of old granulomatous disease. Heart size is normal without pericardial effusion. Coronary artery calcifications are present. Prior left lower lobe resection. Biapical pleural-parenchymal scarring present. No pneumothorax, pleural effusion, or focal pneumonic consolidation. Unchanged right middle lobe pulmonary nodules measuring up to 0.4 cm (series 2, image 85). Calcified pulmonary nodules compatible with old granulomatous disease. Limited views of the upper abdomen demonstrate calcified hepatic granuloma and an incompletely visualized hepatic cyst. High density material along the anterior aspect of the gallbladder has no correlate on same day MRI and probably represents hepatobiliary agent. No suspicious lytic or blastic osseous lesions. A 1 cm right breast mass is unchanged dating back to 2022 and probably represents a fibroadenoma. Procedure Note Eduardo Benitez MD - 12/19/2024 EXAMINATION: CT chest with intravenous contrast HISTORY: 74-year-old female with metastatic melanoma TECHNIQUE: Computed tomographic images of the chest were obtained after administration of 68 mL of Optiray 350 intravenous contrast per standard protocol. COMPARISON:08/22/2024 FINDINGS: No supraclavicular, axillary, mediastinal, or hilar lymphadenopathy. Calcified lymph nodes compatible with changes of old granulomatous disease. Heart size is normal without pericardial effusion. Coronary artery calcifications are present. Prior left lower lobe resection. Biapical pleural-parenchymal scarring present. No pneumothorax, pleural effusion, or focal pneumonic consolidation. Unchanged right middle lobe pulmonary nodules measuring up to 0.4 cm (series 2, image 85). Calcified pulmonary nodules compatible with old granulomatous disease. Limited views of the upper abdomen demonstrate calcified hepatic granuloma and an incompletely visualized hepatic cyst. High density material along the anterior aspect of the gallbladder has no correlate on same day MRI and probably represents hepatobiliary agent. No suspicious lytic or blastic osseous lesions. A 1 cm right breast mass is unchanged dating back to 2022 and probably represents a fibroadenoma. IMPRESSION: 1. No evidence of disease progression with stable right middle lobe pulmonary nodules dating back to 09/28/2023, favored to be benign.. 2. Unchanged small right breast mass which probably represents a fibroadenoma given stability Electronically signed by: Eduardo Benitez M.D. Jersey Sanabria NP IMG CT PROCEDURES Final R esult * (ABNORMAL) POCT creatinine (12/19/2024 9:28 AM RIDE MECHANIC) Creatinine POC 1.2(H) 0.6 - 1.1 mg/dL Blood 12/19/2024 9:28 AM RIDE MECHANIC 12/19/2024 9:28 AM RIDE MECHANIC Jony Genet DO LAB POCT ORDERABLES - DEVICE Fin al Result [facility] Department [place] [address] * MRI Abdomen Liver W WO Contrast (12/19/2024 8:59 AM RIDE MECHANIC) Anatomical Region Laterality Modality Body N/A Magnetic Resonan ce 12/19/2024 1:12 PM RIDE MECHANIC Impressions 12/19/2024 1:36 PM RIDE MECHANIC No suspicious hepatic lesion or evidence of metastatic disease in the abdomen. Dictated by: Caitlin Justice M.D. The radiology attending physician has personally reviewed this study, and had reviewed and/or edited this written report and agrees with it. Electronically signed by: Hugh Leavitt M.D. 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 Protocol: Liver Contrast: Eovist 14 mL COMPARISON: 08/22/2024 MR FINDINGS: Liver: No hepatic surface nodularity. No significant steatosis or iron deposition. - Bile ducts: Prominent extrahepatic bile ducts with smooth tapering to the level of the ampulla. No intrahepatic biliary ductal dilatation. - Focal liver lesions: Unchanged hepatic segment 5/6 cyst. No suspicious focal liver lesion. - Vasculature: Patent portal, hepatic, and splenic veins. Gallbladder: Normal Pancreas: Normal Spleen: Normal with small adjacent splenule Adrenals: Normal Kidneys: No hydronephrosis or suspicious renal lesion. Other Findings: No pleural effusion. No suspicious lymphadenopathy. No suspicious osseous lesion. Linear opacity in left lower lobe is consistent with prior wedge resection. Previously described T1 hyperintensity at the level of a duodenal diverticulum is no longer present, likely representing ingested contents. It is now gas filled. 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 Protocol: Liver Contrast: Eovist 14 mL COMPARISON: 08/22/2024 MR FINDINGS: Liver: No hepatic surface nodularity. No significant steatosis or iron deposition. - Bile ducts: Prominent extrahepatic bile ducts with smooth tapering to the level of the ampulla. No intrahepatic biliary ductal dilatation. - Focal liver lesions: Unchanged hepatic segment 5/6 cyst. No suspicious focal liver lesion. - Vasculature: Patent portal, hepatic, and splenic veins. Gallbladder: Normal Pancreas: Normal Spleen: Normal with small adjacent splenule Adrenals: Normal Kidneys: No hydronephrosis or suspicious renal lesion. Other Findings: No pleural effusion. No suspicious lymphadenopathy. No suspicious osseous lesion. Linear opacity in left lower lobe is consistent with prior wedge resection. Previously described T1 hyperintensity at the level of a duodenal diverticulum is no longer present, likely representing ingested contents. It is now gas filled. IMPRESSION: No suspicious hepatic lesion or evidence of metastatic disease in the abdomen. Dictated by: Caitlin Justice M.D. The radiology attending physician has personally reviewed this study, and had reviewed and/or edited this written report and agrees with it. Electronically signed by: Hugh Leavitt M.D. Jersey Sanabria NP [place] MRI PROCEDURES Final Result * (ABNORMAL) POCT hemoglobin A1c (11/11/2023 4:54 PM RIDE MECHANIC) Hgb A1C, POC 6.6(H) 4.0 - 5.6 % [facility] Est Average Gluc POC 143 mg/dL [facility] Comment: The ADA recommends reporting an estimated Average Glucose (eAG) with all Hemoglobin A1c results using the equation derived from a study of 507 normal and diabetic adults. Minority populations were underrepresented and children were not included. (Diabetes Care 31:9879-4731, 2008). The eAG is not equivalent to a fasting glucose. Blood 11/11/2023 4:54 PM RIDE MECHANIC 11/11/2023 4:54 PM RIDE MECHANIC Baldemar Gould MD POINT OF CARE TEST ORD ERABLES Final Result [facility] [place] [address] from Last 3 Months or Most Recently Relevant to Health Maintenance Insurance [facility] MEDICARE ADVANTAGE [facility] MED[facility] Address: [address] [address] [place] [address] [facility] MEDICARE AD[facility] Address: [address] [address] [place] [address] Advance Directives For more information, please contact: [phone] * Full Code (Latest Code Status on File) Date Activated Date Inactivated Comments 11/16/2023 9:46 AM 11/17/2023 4:55 PM Care Teams Double Needle Operator Relationship Specialty Start Date End Date Jony De León DO [address] [address] PCP - General Internal Medicine 08/12/24 J Carlos Davison MD Medical Oncologist/Single Fold Machine Operator Medical Oncology 10/05/23 Bindu English OD [address] [place] [address] Optometry 02/25/24
--- OUTSIDE RECORDS SUMMARY | 2025-03-17 08:18 | XMS_ITS | Referral Summary ---
Author Organization [facility] Address [address] [place] [address] Care Team Providers Care Dial Painter Name Role Phone JC arlos Davison MD Unavailable [phone] Bindu English OD Unavailable [phone] Jony De León DO Primary Care Provider [phone] Encounters Date Type Department Care Team Description 02/23/2025 12:30 PM CDT Office Visit [facility] Ophthalmology [address] 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); Post-radiation retinopathy, subsequent encounter 12/26/2024 9:15 AM CDT Office Visit [facility] Dermatology [address] [place] [phone] Shamar Hoskins MD PhD Metastatic melanoma (HCC) (Primary Dx); Seborrheic keratosis; Multiple benign nevi; Rosales angioma; Ganglion cyst of dorsum of right wrist 12/19/2024 10:15 AM SOFTWARE DEVELOPER MANAGER Clinical Support [facility] - Lab Collection [facility] [address] [address] Metastatic melanoma (HCC) 12/19/2024 11:00 AM SOFTWARE DEVELOPER MANAGER Office Visit [facility] Oncology [facility] [address] [place] [address] J Carlos Davison MD Metastatic melanoma (HCC) 12/19/2024 10:00 AM SOFTWARE DEVELOPER MANAGER Lab [facility] Oncology Lab [address] [facility] Floor 6 [place] [address] Metastatic melanoma (HCC) 12/19/2024 6:59 AM SOFTWARE DEVELOPER MANAGER - 12/19/2024 11:59 PM SOFTWARE DEVELOPER MANAGER Hospital Encounter [facility] [address] [place] [address] Metastatic melanoma (HCC) Discharge Disposition: Discharge to home or self care 12/19/2024 6:59 AM SOFTWARE DEVELOPER MANAGER - 12/19/2024 11:59 PM SOFTWARE DEVELOPER MANAGER Hospital Encounter [facility] ([facility]) [address] [place] [address] Metastatic melanoma (HCC) Discharge Disposition: Discharge to home or self care from Last 3 Months Allergies Active Allergy Reactions Criticality Noted Date [...] for surgery. Last dose was 11/09/2023 Active [id number]-nxm ic acid-vit K 400-80 mcg capsule Take [...] 1 tablet (50 mcg total) by mouth tar worker before breakfast Active Active Problems Patient [...] 11/05/2023 Assessment & Plan (11/16/2023 12:48 PM SOFTWARE DEVELOPER MANAGER): S/P VATS LLL wedge resection - CT [...] Observe. Assessment & Plan (12/13/2020 2:44 PM SOFTWARE DEVELOPER MANAGER): status post (s/p) EPR 2009 Stable, continue observation. Assessment & Plan (11/23/2019 10:17 AM SOFTWARE DEVELOPER MANAGER): status post (s/p) EPR 2009 Stable, continue observation. Assessment & Plan (11/03/2018 9:58 AM SOFTWARE DEVELOPER MANAGER): status post (s/p) EPR 2009 Stable, continue [...] observe. 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 She does have some posterior capsule opacity left eye. 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 Diabetes mellitus 09/29/2013 Assessment & Plan (11/16/2023 12:49 PM SOFTWARE DEVELOPER MANAGER): - type 2 - SSI while in house Immunizations Immunization Administration Dates Next Due Influenza, [...] on file Legal Sex Female 4:18 AM SOFTWARE DEVELOPER MANAGER Gender Identity Not on file Sexual Orientation Not on file Last Filed Vital Signs Vital Sign Reading Time Taken Comments Blood Pressure 117/69 12/19/2024 10:24 AM SOFTWARE DEVELOPER MANAGER Pulse 74 12/19/2024 10:24 AM SOFTWARE DEVELOPER MANAGER Temperature 36.4 C (97.5 F) 12/19/2024 10:24 AM SOFTWARE DEVELOPER MANAGER Respiratory Rate 18 12/19/2024 10:24 AM SOFTWARE DEVELOPER MANAGER Oxygen Saturation 97% 12/19/2024 10:24 AM SOFTWARE DEVELOPER MANAGER Inhaled Oxygen Concentration - - Weight 69.9 kg (154 lb) 12/19/2024 10:24 AM SOFTWARE DEVELOPER MANAGER Height 165.1 cm (5' 5) 04/18/2024 9:58 AM CDT Body Mass Index 25.63 04/18/2024 9:58 AM CDT Plan of Treatment Not on file Procedures Procedure Name Priority Date/Time Associated Diagnosis Comments FUNDUS PHOTOS/FAF - OS - LEFT EYE Routine 02/23/2025 12:46 PM CDT 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) EGFR Routine 12/19/2024 10:04 AM SOFTWARE DEVELOPER MANAGER Metastatic melanoma (HCC) DIFFERENTIAL AUTO Routine 12/19/2024 10: 04 AM SOFTWARE DEVELOPER MANAGER Metastatic melanoma (HCC) CBC WITH AUTO DIFFERENTIAL Routine 12/19/2024 10:04 AM SOFTWARE DEVELOPER MANAGER Metastatic melanoma (HCC) COMPREHENSIVE METABOLIC PANEL Routine 12/19/2024 10:04 AM SOFTWARE DEVELOPER MANAGER Metastatic melanoma (HCC) LACTATE DEHYDROGENASE Routine 12/19/2024 10:04 AM SOFTWARE DEVELOPER MANAGER Metastatic melanoma (HCC) GAMMA GT Routine 12/19/2024 10:04 AM SOFTWARE DEVELOPER MANAGER Metastatic melanoma (HCC) CT CHEST W CONTRAST Schedule Routine, Read Routine (OP Routine) 12/19/2024 9:38 AM SOFTWARE DEVELOPER MANAGER Metastatic melanoma (HCC) POCT CREATININE - DEVICE Routine 12/19/2024 9:28 AM SOFTWARE DEVELOPER MANAGER MRI ABDOMEN LIVER W WO CONTRAST Schedule Routine, Read Routine (OP Routine) 12/19/2024 8:59 AM SOFTWARE DEVELOPER MANAGER Metastatic melanoma (HCC) POCT HEMOGLOBIN A1C Routine 11/11/2023 4 :54 PM SOFTWARE DEVELOPER MANAGER from Last 3 Months or Most Recently [...] l Result * eGFR (12/19/2024 10:04 AM SOFTWARE DEVELOPER MANAGER) eGFR 60 >=60 mL/min/1. 73 m2 Comment: [...] reviewed 2021. Blood 12/19/2024 10:0 4 AM SOFTWARE DEVELOPER MANAGER 12/19/2024 10:12 AM SOFTWARE DEVELOPER MANAGER us Jersey Sanabria NP LAB BLOOD ORDERABLES Babita l Result [facility] Department [place] [address] * Differential, auto (12/19/2024 10:04 AM SOFTWARE DEVELOPER MANAGER) Neutrophil abs 3.2 1.5 - 6.5 K/cumm Comment:Testing performed by : [facility], [address] [place] [phone] Lymphocyte abs 1.5 0.8 - 3.3 K/cumm [facility] Comment:Testing performed by : [facility], [address] [place] [address] Monocyte abs 0.4 0.2 - 0.8 K/cumm [facility] Comment:Testing performed by : [facility], [address] [place] [address] Eosinophil abs 0.1 0.0 - 0.5 K/cumm [facility] Comment:Testing performed by : [facility], [address] [place] [phone] Basophil abs 0.0 0.0 - 0.1 K/cumm [facility] Comment:Testing performed by : [facility], [address] [place] [phone] Neutrophil pct 61.0 % [facility] Comment: Interpretive Data Percent cell count reference ranges are not reported, since discordance with absolute values may lead to misinterpretation of CBC data. Current Interpretive Data was last revised on 2018. Testing performed by: [facility], [address] [place] [phone] Lymphocyte pct 28.2 % [facility] Comment: Interpretive Data Percent cell count reference ranges are not reported, since discordance with absolute values may lead to misinterpretation of CBC data. Current Interpretive Data was last revised on 2018. Testing performed by: [facility], [address] [place] [phone] Monocyte pct 7.6 % [facility] Comment: Interpretive Data Percent cell count reference ranges are not reported, since discordance with absolute values may lead to misinterpretation of CBC data. Current Interpretive Data was last revised on 2018. Testing performed by: [facility], [address] [place] [phone] Eosinophil pct 2.8 % [facility] Comment: Interpretive Data Percent cell count reference ranges are not reported, since discordance with absolute values may lead to misinterpretation of CBC data. Current Interpretive Data was last revised on 2018. Testing performed by: [facility], [address] [place], [place] [phone] Basophil pct 0.4 % [facility] Comment: Interpretive Data Percent cell count reference ranges are not reported, since discordance with absolute values may lead to misinterpretation of CBC data. Current Interpretive Data was last revised on 2018. Testing performed by: [facility], [address] [place], [place] [phone] Blood 12/19/2024 10:0 4 AM SOFTWARE DEVELOPER MANAGER 12/19/2024 10:09 AM SOFTWARE DEVELOPER MANAGER Jersey Sanabria SLIP SEAT COVERER LAB BLOOD ORDERABLES Babita whiteside Result [facility] Department [place] [address] * (ABNORMAL) CBC with auto differential (12/19/2024 10:04 AM SOFTWARE DEVELOPER MANAGER) WBC 5.3 3.8 - 9.9 K/cumm Comment:Testing performed by : [facility], [address] [place] [phone] Hgb 11.6(L) 11.9 - 15.5 g/dL [facility] Comment:Testing performed by : [facility], [address] [place] [phone] Hct 33.9(L) 35.6 - 45.5 % [facility] Comment:Testing performed by : [facility], [address] [place] [phone] Plt 291 150 - 400 K/cumm [facility] Comment:Testing performed by : [facility], [address] [place], [place] [phone] MPV 7.5 6.8 - 10.4 fL [facility] Comment:Testing performed by : [facility], [address] [place], [place] [phone] RBC 3.82(L) 3.90 - 5.20 M/cumm [facility] Comment:Testing performed by : [facility], [address] [place], [place] [phone] MCV 88.7 81.3 - 96.4 fL [facility] Comment:Testing performed by : [facility], [address] [place], [place] [phone] MCH 30.3 27.1 - 33.3 pg EWNDY FREY Comment:Testing performed by : [facility], [address] [place], [place] [phone] MCHC 34.2 32.3 - 35.7 g/dL [facility] Comment:Testing performed by : [facility], [address] [place], [place] [phone] RDW CV 13.4 11.1 - 14.9 % [facility] Comment:Testing performed by : [facility], [address] [place], [place] [phone] NRBC abs 0.00 0.00 - 0.01 K/cumm [facility] Comment:Testing performed by : [facility], [address] [place], [place] [phone] Blood 12/19/2024 10:0 4 AM SOFTWARE DEVELOPER MANAGER 12/19/2024 10:09 AM SOFTWARE DEVELOPER MANAGER us Jersey Sanabria SLIP SEAT COVERER LAB BLOOD ORDERABLES Babita l Result [facility] Department [place] [address] * Lactate dehydrogenase (LD) (12/19/2024 10:04 AM SOFTWARE DEVELOPER MANAGER) Lactate dehydrogenase (LDH) 139 100 - 250 Units/L Blood 12/19/2024 10:0 4 AM SOFTWARE DEVELOPER MANAGER 12/19/2024 10:12 AM SOFTWARE DEVELOPER MANAGER Jersey Sanabria NP LAB BLOOD ORDERABLES Babita l Result Performing Organization Address City/[facility] Co de Phone Number [facility] Department [place] [address] * Gamma GT (12/19/2024 10:04 AM SOFTWARE DEVELOPER MANAGER) Pathologist [facility] GGT 15 5 - 35 Units/L Blood 12/19/2024 10:0 4 AM SOFTWARE DEVELOPER MANAGER 12/19/2024 10:12 AM SOFTWARE DEVELOPER MANAGER Jersey Sanabria NP LAB BLOOD ORDERABLES Babita l Result Performing Organization Address [facility] de Phone Number [facility] Department [place] [address] * (ABNORMAL) Comprehensive metabolic panel (12/19/2024 10:04 AM SOFTWARE DEVELOPER MANAGER) [facility] Sodium 130(L) 135 - 145 mmol/L Potassium, pl 4.0 3.3 - 4.9 mmol/L [facility] Chloride 99 97 - 110 mmol/L [facility] CO2 26 22 - 32 mmol/L [facility] Anion gap 5 2 - 15 mmol/L [facility] BUN 20 6 - 25 mg/dL [facility] Creatinine 0.99 0.60 - 1.10 mg/dL [facility] Glucose 109 70 - 199 mg/dL [facility] Comment: Interpretive Data Fasting glucose >/= 126 [...] 2022. Calcium 8.9 8.5 - 10.3 mg/dL [facility] Bilirubin, total 0.3 0.1 - 1.2 mg/dL [facility] Protein, pl 6.4(L) 6.5 - 8.5 g/dL [facility] Albumin 4.0 3.5 - 5.0 g/dL [facility] Alk phos 83 40 - 130 Units/L [facility] ALT 14 7 - 45 Units/L [facility] AST 18 10 - 45 Units/L [facility] Blood 12/19/2024 10:0 4 AM SOFTWARE DEVELOPER MANAGER 12/19/2024 10:12 AM SOFTWARE DEVELOPER MANAGER us Jersey Sanabria NP LAB BLOOD ORDERABLES Babita whiteside Result [facility] Department [place] [address] * CT Chest W Contrast (12/19/2024 9:38 AM SOFTWARE DEVELOPER MANAGER) Anatomical Region Laterality Modality Body N/A Computed Tomogra phy 12/19/2024 10:2 9 AM SOFTWARE DEVELOPER MANAGER Impressions 12/19/2024 10:29 AM SOFTWARE DEVELOPER MANAGER 1. No evidence of disease progression with stable right middle lobe pulmonary nodules dating back to 09/28/2023, favored to be benign.. 2. Unchanged small right breast mass which probably represents a fibroadenoma given stability Electronically signed by: Eduardo Benitez M.D. Narrative 12/19/2024 10:29 AM SOFTWARE DEVELOPER MANAGER EXAMINATION: CT chest with intravenous contrast HISTORY: [...] probably represents a fibroadenoma. Procedure Note Eduardo Beintez MD - 12/19/2024 EXAMINATION: CT chest with [...] by: Eduardo Benitez M.D. Jersey Sanabria NP IM CT PROCEDURES Final R esult * (ABNORMAL) POCT creatinine (12/19/2024 9:28 AM SOFTWARE DEVELOPER MANAGER) Creatinine POC 1.2(H) 0.6 - 1.1 mg/dL Blood 12/19/2024 9:28 AM SOFTWARE DEVELOPER MANAGER 12/19/2024 9:28 AM SOFTWARE DEVELOPER MANAGER us Jonykenya De León LAB POCT ORDERABLES - DEVICE Fin al Result [facility] Department [place] [address] * MRI Abdomen Liver W WO Contrast (12/19/2024 8:59 AM SOFTWARE DEVELOPER MANAGER) Anatomical Region Laterality Modality Body N/A Magnetic Resonan ce 12/19/2024 1:12 PM SOFTWARE DEVELOPER MANAGER Impressions 12/19/2024 1:36 PM SOFTWARE DEVELOPER MANAGER No suspicious hepatic lesion or evidence of metastatic disease in the abdomen. Dictated by: Caitlin Justice M.D. The radiology attending physician has personally reviewed this study, and had reviewed and/or edited this written report and agrees with it. Electronically signed by: Hugh Leavitt M.D. Narrative 12/19/2024 1:36 PM SOFTWARE DEVELOPER MANAGER EXAMINATION: MAGNETIC RESONANCE IMAGING OF THE ABDOMEN [...] by: Hugh Leavitt M.D. Jersey Sanabria NP [facility] MRI PROCEDURES Final Result * (ABNORMAL) POCT hemoglobin A1c (11/11/2023 4:54 PM SOFTWARE DEVELOPER MANAGER) Hgb A1C, POC 6.6(H) 4.0 - 5.6 % [facility] Est Average Gluc POC 143 mg/dL [facility] Comment: The ADA recommends reporting an estimated Average Glucose (eAG) with all Hemoglobin A1c results using the equation derived from a study of 507 normal and diabetic adults. Minority populations were underrepresented and children were not included. (Diabetes Care 31:7310-0113, 2008). The eAG is not equivalent to a fasting glucose. Blood 11/11/2023 4:54 PM SOFTWARE DEVELOPER MANAGER 11/11/2023 4:54 PM SOFTWARE DEVELOPER MANAGER us Baldemar Gould MD POINT OF CARE TEST ORD ERABLES Final Result [facility] Department [place] [address] from Last 3 Months or Most Recently Relevant to Health Maintenance Insurance [id number] MEDICARE ADVANTAGE [id number] [place] [address] Advance Directives For more information, please contact: [phone] * Full Code (Latest Code Status on File) Date Activated Date Inactivated Comments 11/16/2023 9:46 AM 11/17/2023 4:55 PM Care Teams Dial Painter Relationship Specialty Start Date End Date Jony De León DO [address] [place], [place] [id number] PCP - General Internal Medicine 08/12/24 J Carlos Davison MD Medical Oncologist/Jailer/Training Officer Medical Oncology 10/05/23 Bindu English OD [address] [place] [address] Optometry 02/25/24
== END 2025-03-17 08:12 | disposition home or self-care (01) ==
LOC: ANHIMG 08:12
PROVIDERS: PCP Internal Medicine; Visit Provider Nurse Practitioner Family
DX: Z12.31 Encounter for screening mammogram for malignant neoplasm of breast (principal); Z78.0 Asymptomatic menopausal state; R92.8 Other abnormal and inconclusive findings on diagnostic imaging of breast; M85.851 Other specified disorders of bone density and structure, right thigh
CPT/HCPCS: 77063; 77067; 77080

== ENCOUNTER 2025-03-30 08:07 | Outpatient (CLI) | payer MEDICARE, SELFPAY ==
--- OUTSIDE RECORDS SUMMARY | 2025-03-30 08:13 | XMS_ITS | Referral Summary ---
Author Organization [facility] Address [address] [place] [address] Care Team Providers Care Test Consultant Name Role Phone J Carlos Davison MD Unavailable [phone] Bindu English OD Unavailable [phone] Jony De León DO Primary Care Provider [phone] Encounters Date Type Department Care Team Description 02/23/2025 12:30 PM CDT Office Visit 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 Last dose was 11/09/2023 Active jlcpuiif-eun-eao ic acid-vit K 400-80 mcg capsule Take [...] 1 tablet (50 mcg total) by mouth rv parts and service director before breakfast Active Active Problems Patient Care [...] 11/05/2023 Assessment & Plan (11/16/2023 12:48 PM MOBILE HOMES REPAIRER): S/P VATS LLL wedge resection - CT [...] Observe. Assessment & Plan (12/13/2020 2:44 PM MOBILE HOMES REPAIRER): status post (s/p) EPR 2009 Stable, continue observation. Assessment & Plan (11/23/2019 10:17 AM MOBILE HOMES REPAIRER): status post (s/p) EPR 2009 Stable, continue observation. Assessment & Plan (11/03/2018 9:58 AM MOBILE HOMES REPAIRER): status post (s/p) EPR 2009 Stable, continue [...] observe. 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 She does have some posterior capsule opacity left eye. 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 Diabetes mellitus 09/29/2013 Assessment & Plan (11/16/2023 12:49 PM MOBILE HOMES REPAIRER): - type 2 - SSI while in [...] on file Legal Sex Female 4:18 AM MOBILE HOMES REPAIRER Gender Identity Not on file Sexual Orientation Not on file Last Filed Vital Signs Vital Sign Reading Time Taken Comments Blood Pressure 117/69 12/19/2024 10:24 AM MOBILE HOMES REPAIRER Pulse 74 12/19/2024 10:24 AM MOBILE HOMES REPAIRER Temperature 36.4 C (97.5 F) 12/19/2024 10:24 AM MOBILE HOMES REPAIRER Respiratory Rate 18 12/19/2024 10:24 AM MOBILE HOMES REPAIRER Oxygen Saturation 97% 12/19/2024 10:24 AM MOBILE HOMES REPAIRER Inhaled Oxygen Concentration - - Weight 69.9 kg (154 lb) 12/19/2024 10:24 AM MOBILE HOMES REPAIRER Height 165.1 cm (5' 5) 04/18/2024 9:58 AM CDT Body Mass Index 25.63 04/18/2024 9:58 AM CDT Plan of Treatment Not on file Procedures Procedure Name Priority Date/Time Associated Diagnosis Comments FUNDUS PHOTOS/FAF - OS - LEFT EYE Routine 02/23/2025 12:46 PM CDT 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 73 m2 Comment: [...] reviewed 2021. Blood 12/19/2024 10:0 4 AM MOBILE HOMES REPAIRER 12/19/2024 10:12 AM MOBILE HOMES REPAIRER us Jersey Sanabria NP LAB BLOOD ORDERABLES Babita l Result [facility] Department [place] [address] * (ABNORMAL) POCT hemoglobin A1c (11/11/2023 4:54 PM MOBILE HOMES REPAIRER) Hgb A1C, POC 6.6(H) 4.0 - 5.6 % [facility] Est Average Gluc POC 143 mg/dL [facility] Comment: The ADA recommends reporting an estimated Average Glucose (eAG) with all Hemoglobin A1c results using the equation derived from a study of 507 normal and diabetic adults. Minority populations were underrepresented and children were not included. (Diabetes Care 31:7364-1523, 2008). The eAG is not equivalent to a fasting glucose. Blood 11/11/2023 4:54 PM MOBILE HOMES REPAIRER 11/11/2023 4:54 PM MOBILE HOMES REPAIRER us Baldemar Gould MD POINT OF CARE TEST ORD ERABLES Final Result [facility] Department [place] [address] from Last 3 Months or Most Recently Relevant to Health Maintenance Insurance [employer] MEDICARE ADVANTAGE MEDICARE ADVANTAGE Advance Directives For more information, please contact: [phone] * Full Code (Latest Code Status on File) Date Activated Date Inactivated Comments 11/16/2023 9:46 AM 11/17/2023 4:55 PM Care Teams Test Consultant Relationship Specialty Start Date End Date Jony De León DO [address] [place] [address] PCP - General Internal Medicine 08/12/24 J Carlos Davison MD Medical Oncologist/Manager Intelligence Medical Oncology 10/05/23 Bindu English OD [address] [place] [address] Optometry 02/25/24
--- OUTSIDE RECORDS SUMMARY | 2025-03-30 08:13 | XMS_ITS | Clinical Summary ---
Author Organization [facility] Address [address] [place] [address] Care Team Providers Care Explosive Technician Name Role Phone J Carlos Davison MD Unavailable [phone] Bindu English OD Unavailable [phone] Jony De León DO Primary Care Provider [phone] Allergies Active Allergy Reactions Criticality Noted Date [...] for surgery. Last dose was 11/09/2023 Active yehqudwt-udx-cvm ic acid-vit K 400-80 mcg capsule Take [...] 1 tablet (50 mcg total) by mouth oil pipeline operator before breakfast Active Active Problems Patient Care [...] 11/05/2023 Assessment & Plan (11/16/2023 12:48 PM NET MENDER): S/P VATS LLL wedge resection - CT [...] Observe. Assessment & Plan (12/13/2020 2:44 PM NET MENDER): status post (s/p) EPR 2009 Stable, continue observation. Assessment & Plan (11/23/2019 10:17 AM NET MENDER): status post (s/p) EPR 2009 Stable, continue observation. Assessment & Plan (11/03/2018 9:58 AM NET MENDER): status post (s/p) EPR 2009 Stable, continue [...] observe. 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 She does have some posterior capsule opacity left eye. 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); Post-radiation retinopathy, subsequent encounter from Last 3 Months Immunizations Immunization Administration [...] on file Legal Sex Female 4:18 AM NET MENDER Gender Identity Not on file Sexual Orientation Not on file Obstetrics History Last Filed Vital Signs Vital Sign Reading Time Taken Comments Blood Pressure 117/69 12/19/2024 10:24 AM NET MENDER Pulse 74 12/19/2024 10:24 AM NET MENDER Temperature 36.4 C (97.5 F) 12/19/2024 10:24 AM NET MENDER Respiratory Rate 18 12/19/2024 10:24 AM NET MENDER Oxygen Saturation 97% 12/19/2024 10:24 AM NET MENDER Inhaled Oxygen Concentration - - Weight 69.9 kg (154 lb) 12/19/2024 10:24 AM NET MENDER Height 165.1 cm (5' 5) 04/18/2024 9:58 [...] 2025 11/09/2019, 09/01/2016, 09/03/2015 eGFR 12/19/2025 12/19/2024, 01/2024, 04/18/2024, Additional history exists Dilated Eye Exam 02/23/2026 02/23/2025, 06/2024, 02/19/2023, Additional history exists Procedures Procedure Name Priority Date/Time Associated Diagnosis Comments FUNDUS PHOTOS/FAF - OS - LEFT EYE Routine 02/23/2025 12:46 PM CDT 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 Progression has been stable. Notes Peripheral laser scars with stable inferotemporal pigmented tumor . Hector Rosales MD OPHTH PHOTOGRAPHY Babita l Result * eGFR (12/19/2024 10:04 AM NET MENDER) eGFR 60 >=60 mL/min/1. 73 m2 Comment: [...] reviewed 2021. Blood 12/19/2024 10:0 4 AM NET MENDER 12/19/2024 10:12 AM NET MENDER Jersey Sanabria NP LAB BLOOD ORDERABLES Babita l Result [facility] Department [place] [address] * (ABNORMAL) POCT hemoglobin A1c (11/11/2023 4:54 PM NET MENDER) Hgb A1C, POC 6.6(H) 4.0 - 5.6 % [facility] Est Average Gluc POC 143 mg/dL [facility] Comment: The ADA recommends reporting an estimated Average Glucose (eAG) with all Hemoglobin A1c results using the equation derived from a study of 507 normal and diabetic adults. Minority populations were underrepresented and children were not included. (Diabetes Care 31:6698-2102, 2008). The eAG is not equivalent to a fasting glucose. Blood 11/11/2023 4:54 PM NET MENDER 11/11/2023 4:54 PM NET MENDER us Baldemar Gould MD POINT OF CARE TEST ORD ERABLES Final Result [facility] Department [place] [address] from Last 3 Months or Most Recently Relevant to Health Maintenance Insurance [id number] MEDICARE ADVANTAGE [id number] MEDICARE ADVANTAGE Advance Directives For more information, please contact: [phone] * Full Code (Latest Code Status on File) Date Activated Date Inactivated Comments 11/16/2023 9:46 AM 11/17/2023 4:55 PM Care Teams Explosive Technician Relationship Specialty Start Date End Date Jony De León DO [address] [place], [place] [id number] PCP - General Internal Medicine 08/12/24 J Carlos Davison MD Medical Oncologist/Windshield Repair Technician Medical Oncology 10/05/23 Bindu English OD [address] [place] [address] Optometry 02/25/24
--- OUTSIDE RECORDS SUMMARY | 2025-03-30 08:13 | XMS_ITS ---
Author Organization [facility] Address [address] [place] [address] Care Team Providers Care Lobby Porter Name Role Phone J Carlos Davison MD Unavailable [phone] Bindu English OD Unavailable [phone] Jony De León DO Primary Care Provider [phone] Active Problems Patient Care Coordination No te [...] 11/05/2023 Assessment & Plan (11/16/2023 12:48 PM POLITICAL AIDE): S/P VATS LLL wedge resection - CT [...] Observe. Assessment & Plan (12/13/2020 2:44 PM POLITICAL AIDE): status post (s/p) EPR 2009 Stable, continue observation. Assessment & Plan (11/23/2019 10:17 AM POLITICAL AIDE): status post (s/p) EPR 2009 Stable, continue observation. Assessment & Plan (11/03/2018 9:58 AM POLITICAL AIDE): status post (s/p) EPR 2009 Stable, continue [...] observe. 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 She does have some posterior capsule opacity left eye. 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 Past Treatment and Therapy Plans No past plan information found. Lifetime Dose Tracking * Chemical Lifetime Dose Automatic Entry Manual Entr y DLP 928 mGycm 928 mGycm 0 mGycm
[2025-03-30 08:24] LABS: Eosinophils Absolute Auto 0.2 K/mm3 (0-0.3); Eosinophils Percent Auto 3.6 % (0-4.4); Hemoglobin 10.9 g/dL (12.0-15.0); Immature Granulocyte Absolute 0.01 K/mm3 (0.00-0.031); Immature Granulocyte Percent A 0.2 % (0-0.5); Lymphocytes Absolute Auto 1.37 K/mm3 (0.9-3.2); Lymphocytes Percent Auto 33.3 % (18.3-44.2); Mean Corpuscular HGB Conc 32.1 g/dl (32-36); Mean Corpuscular Hemoglobin 29.6 pg (26-34); Mean Corpuscular Volume 92.4 fl (80-100); Mean Platelet Volume 8.8 fl (7.4-10.4); Monocytes Absolute Auto 0.4 K/mm3 (0.1-0.6); Neutrophils Absolute Auto 2.2 K/mm3 (1.3-6.7); Neutrophils Percent Auto 52.9 % (45.5-73.1); Platelet Count Result 258 k/mm3 (150-375); Red Blood Count 3.68 M/mm3 (4.2-5.4); White Blood Count 4.1 K/mm3 (4.5-10.0)
[2025-03-30 08:35] LABS: Alanine Aminotransferase 22 U/L (6-35); Albumin Level 4.4 g/dL (3.5-5.1); Alkaline Phosphatase 93 U/L (38-126); Anion Gap 8 mmol/L (4-12); Aspartate Amino Transferase 31 U/L (14-36); Bilirubin,Total 0.5 mg/dL (0.2-1.3); Blood Urea Nitrogen 24 mg/dL (7-17); Calcium 9.7 mg/dL (8.4-10.2); Carbon Dioxide 23 mmol/L (22-30); Chloride 109 mmol/L (98-107); Cholesterol 145 mg/dL (0-200); Estimated Glomerular Filt Rate 49; Glucose 112 mg/dL (65-110); HDL Direct 64 mg/dL; Potassium 4.2 mmol/L (3.4-5.0); Sodium 140 mmol/L (137-145); Total Protein 7.1 g/dL (6.3-8.2); Triglycerides 114 mg/dL (<150)
[2025-03-30 08:46] LABS: LDL Cholesterol Direct 46 mg/dL
[2025-03-30 08:55] LABS: Hemoglobin A1C 5.8 % (<5.7)
[2025-03-30 09:08] LABS: Free T4 Free Thyroxine 1.57 ng/dL (0.78-2.19)
== END 2025-03-30 08:08 | disposition home or self-care (01) ==
PROVIDERS: PCP Internal Medicine; Visit Provider Internal Medicine
DX: E78.5 Hyperlipidemia, unspecified (principal); E03.9 Hypothyroidism, unspecified; E11.9 Type 2 diabetes mellitus without complications
CPT/HCPCS: 36415; 80053; 80061; 83036; 84439; 84443; 85025

== ENCOUNTER 2025-04-11 08:03 | Outpatient (CLI) | payer MEDICARE, SELFPAY ==
--- NOTE | ~2025-04-11 | MM_ITS ---
EXAMINATION: MM diagnostic jyoti LT w jonelle HISTORY: Left breast asymmetry TECHNIQUE: Additional 3-D tomosynthesis images of the left breast were performed and synthetic 2-D im ages were generated. CAD analysis was submitted and interpreted. COMPARISON: 03/17/2025 and 10/06/2022 BREAST PARENCHYMAL COMPOSITION:Not Dense. There are scattered areas of fibroglandular density. FINDINGS: Left breast asymmetry effaces the spot compression. No persistent mass lesion or distortion . No suspicious microcalcification. IMPRESSION: No mammographic evidence for malignancy. BI-RADS Category 1: Negative Reviewed, dictated and finalized at location .
== END 2025-04-11 08:04 | disposition home or self-care (01) ==
LOC: MICIMG 08:04
PROVIDERS: PCP Internal Medicine; Visit Provider Nurse Practitioner Family
DX: R92.8 Other abnormal and inconclusive findings on diagnostic imaging of breast (principal)
CPT/HCPCS: 77061; 77065; G0279

== ENCOUNTER 2025-07-06 14:20 | Outpatient (CLI) | payer MEDICARE, SELFPAY ==
--- OUTSIDE RECORDS SUMMARY | 2025-07-06 14:24 | XMS_ITS ---
Author Organization [facility] Address [address] [place] [address] Care Team Providers Care Drywall Metal Stud Worker Name Role Phone J Carlos Davison MD Unavailable [phone] Bindu English OD Unavailable [phone] Jony De León DO Primary Care Provider [phone] Active Problems Patient Care Coordination No te Formatting of this note migh t be different from the original. Referring provider: Dr. J Carlos Davison Ms. Jessiac Garcia is a 72-year-old with a lung [...] 11/05/2023 Assessment & Plan (11/16/2023 12:48 PM HEADING MATCHER AND ASSEMBLER): S/P VATS LLL wedge resection - CT [...] Observe. Assessment & Plan (12/13/2020 2:44 PM HEADING MATCHER AND ASSEMBLER): status post (s/p) EPR 2009 Stable, continue observation. Assessment & Plan (11/23/2019 10:17 AM HEADING MATCHER AND ASSEMBLER): status post (s/p) EPR 2009 Stable, continue observation. Assessment & Plan (11/03/2018 9:58 AM HEADING MATCHER AND ASSEMBLER): status post (s/p) EPR 2009 Stable, continue [...] observe. 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 She does have some posterior capsule opacity left eye. 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 Past Treatment and Therapy Plans No past plan information found. Lifetime Dose Tracking * Chemical Lifetime Dose Automatic Entry Manual Entr y DLP 1,122 mGycm 1,122 mGycm 0 mGycm
--- OUTSIDE RECORDS SUMMARY | 2025-07-06 14:24 | XMS_ITS | Clinical Summary ---
Author Organization [facility] Address [address] [place] [address] Care Team Providers Care Hyperbaric Tech Name Role Phone Unavailable Primary Care Provider [...] 1 - Tdap) 1969 Mammogram Screening 1990 Pneumococcal Vaccine: 50+ Ye ars (1 of 1 - PCV) 2000 Zoster Vaccines (1 of 2) 2000 Dexa Scan (General) 2015 COVID-19 Vaccine ( - 2023-2 5 season) 2025 RSV Immunization or 60+ Years (1 - [...]
--- OUTSIDE RECORDS SUMMARY | 2025-07-06 14:24 | XMS_ITS | Clinical Summary ---
Author Organization [facility] Address [address] [place] [address] Care Team Providers Care Chin Strap Sewer Name Role Phone J Carlos Davison MD Unavailable [phone] Bindu English OD Unavailable [phone] Jony De León DO Primary Care Provider [phone] Allergies Active Allergy Reactions Criticality Noted Date [...] for surgery. 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 Assessment & Plan (12/13/2020 2:44 PM AVIONICS INSTALLER): status post (s/p) EPR 2009 Stable, continue observation. Assessment & Plan (11/23/2019 10:17 AM AVIONICS INSTALLER): status post (s/p) EPR 2009 Stable, continue observation. Assessment & Plan (11/03/2018 9:58 AM AVIONICS INSTALLER): status post (s/p) EPR 2009 Stable, continue [...] observe. 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 She does have some posterior capsule opacity left eye. 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 Diabetes mellitus 09/29/2013 Assessment & Plan (11/16/2023 12:49 PM AVIONICS INSTALLER): - type 2 - SSI while in house Encounters Date Type Department Care Team Description 04/24/2025 12:00 PM CDT Office Visit [facility] Medicine Oncology [address] [place] [phone] J Carlos Davison MD Metastatic melanoma (HCC) 04/24/2025 10:15 AM CDT Lab [facility] Medicine Oncology Lab [address] [place] [phone] Metastatic melanoma (HCC) 04/24/2025 7:15 AM CDT Lab [facility] ([facility]) [address] [place] [phone] Metastatic melanoma (HCC) 04/24/2025 7:13 AM CDT - 04/24/2025 11:59 PM CDT Hospital Encounter [facility] [address] [place] [address] Metastatic melanoma (HCC) Discharge Disposition: Discharge to home or self care 04/24/2025 7:13 AM CDT - 04/24/2025 11:59 PM CDT Hospital Encounter [facility]) [address] [place] [id number] J Carlos Davison MD Metastatic melanoma (HCC) Discharge Disposition: Discharge to [...] on file Legal Sex Female 4:18 AM AVIONICS INSTALLER Gender Identity Not on file Sexual Orientation Not on file Obstetrics History Last Filed Vital Signs Vital Sign Reading Time Taken Comments Blood Pressure 131/55 04/24/2025 11:12 AM CDT Pulse 61 04/24/2025 11:12 AM CDT Temperature 36.1 C (97 F) 04/24/2025 11:07 AM CDT Respiratory Rate 18 04/24/2025 11:07 AM CDT Oxygen Saturation 100% 04/24/2025 11:12 AM CDT Inhaled Oxygen Concentration - - Weight 70.1 kg (154 lb 9.6 oz) 04/24/2025 11:07 AM CDT Height 165.1 cm (5' 5) 04/24/2025 11:07 AM CDT Body Mass Index 25.73 04/24/2025 11:07 AM CDT Plan of Treatment Health Maintenance [...] Fall Risk Assessment 11/17/2024 11/17/2023 Influenza Vaccine (#1) 2025 , 09/01/2016, 09/03/2015 Dilated Eye Exam 02/23/2026 02/23/2025, 06/2024, 02/19/2023, Additional history exists eGFR 04/24/2026 04/24/2025, 03/0 12/2024, 08/22/2024, Additional history exists Procedures Procedure Name Priority Date/Time Associated Diagnosis Comments CT CHEST W CONTRAST Schedule Routine, Read Routine (OP Routine) 04/24/2025 9:32 AM CDT Metastatic melanoma (HCC) MRI ABDOMEN LIVER W WO CONTRAST Schedule Routine, Read Routine (OP Routine) 04/24/2025 8:26 AM CDT Metastatic melanoma (HCC) EGFR Routine 04/24/2025 7:19 AM CDT Metastatic melanoma (HCC) DIFFERENTIAL AUTO Routine 04/24/2025 7:1 9 AM CDT Metastatic melanoma (HCC) CBC WITH AUTO DIFFERENTIAL Routine 04/24/2025 7:19 AM CDT Metastatic melanoma (HCC) COMPREHENSIVE METABOLIC PANEL Routine 04/24/2025 7:19 AM CDT Metastatic melanoma (HCC) LACTATE DEHYDROGENASE Routine 04/24/2025 7:19 AM CDT Metastatic melanoma (HCC) THYROID FUNCTION CASCADE Routine 04/24/2025 7:19 AM CDT Metastatic melanoma (HCC) POCT HEMOGLOBIN A1C Routine 11/11/2023 4 :54 PM AVIONICS INSTALLER from Last 3 Months or Most Recently Relevant to Health Maintenance Results * CT Chest W Contrast (04/24/2025 9:32 AM CDT) Anatomical Region Laterality Modality Body N/A Computed Tomogra phy 04/24/2025 9:47 AM CDT Impressions 04/24/2025 9:47 AM CDT 1. Stable sub-5 mm pulmonary nodules. No progressive disease identified in the chest. Electronically signed by: Ravi Peralta M.D. Narrative 04/24/2025 9:47 AM CDT EXAMINATION: Computed tomography of the chest with intravenous contrast HISTORY: Melanoma restaging TECHNIQUE: Transaxial computed tomographic images of the chest were obtained with intravenous contrast according to the standard protocol after the uneventful administration of 68 mL Opti-Ray 350 intravenous contrast. COMPARISON: 12/19/2024 FINDINGS: There is no pleural effusion, pneumothorax, or pneumonic consolidation. Surgical changes from left lower lobe wedge resection are again seen. Stable 4 mm right upper lobe nodule on series 3 image 81. Adjacent 3 mm nodule on series 3 image 84 is also stable. No pleural or pulmonary metastatic disease. There is no axillary, supraclavicular, mediastinal, or hilar lymphadenopathy. Coronary artery calcifications are present. Normal heart size without pericardial effusion. Nonaneurysmal thoracic aorta. Soft tissue nodule at the lower outer aspect of the right breast is are unchanged. High density material within the gallbladder is better assessed on same-day MRI. Unchanged benign-appearing cyst in hepatic segment 6. Imaged portions of the upper abdominal solid organs and gastrointestinal tract appear normal. No body wall metastatic disease. No suspicious osseous lesion or fracture. Procedure Note Ravi Peralta MD - 04/24/2025 EXAMINATION: Computed tomography of the chest with intravenous contrast HISTORY: Melanoma restaging TECHNIQUE: Transaxial computed tomographic images of the chest were obtained with intravenous contrast according to the standard protocol after the uneventful administration of 68 mL Opti-Ray 350 intravenous contrast. COMPARISON: 12/19/2024 FINDINGS: There is no pleural effusion, pneumothorax, or pneumonic consolidation. Surgical changes from left lower lobe wedge resection are again seen. Stable 4 mm right upper lobe nodule on series 3 image 81. Adjacent 3 mm nodule on series 3 image 84 is also stable. No pleural or pulmonary metastatic disease. There is no axillary, supraclavicular, mediastinal, or hilar lymphadenopathy. Coronary artery calcifications are present. Normal heart size without pericardial effusion. Nonaneurysmal thoracic aorta. Soft tissue nodule at the lower outer aspect of the right breast is are unchanged. High density material within the gallbladder is better assessed on same-day MRI. Unchanged benign-appearing cyst in hepatic segment 6. Imaged portions of the upper abdominal solid organs and gastrointestinal tract appear normal. No body wall metastatic disease. No suspicious osseous lesion or fracture. IMPRESSION: 1. Stable sub-5 mm pulmonary nodules. No progressive disease identified in the chest. Electronically signed by: Ravi Peralta M.D. J Carlos Davison MD IM CT PROCEDURES Final Result * MRI Abdomen Liver W WO Contrast (04/24/2025 8:26 AM CDT) Anatomical Region Laterality Modality Body N/A Magnetic Resonan ce 04/24/2025 12:5 0 PM CDT Impressions 04/24/2025 12:50 PM CDT No evidence of metastases in the abdomen Electronically signed by: Hugh Leavitt M.D. Narrative 04/24/2025 12:50 PM CDT EXAMINATION: MAGNETIC RESONANCE IMAGING OF THE ABDOMEN WITH AND WITHOUT CONTRAST HISTORY: Metastatic melanoma TECHNIQUE: Magnetic resonance imaging of the abdomen was performed prior to and following the uneventful administration of intravenous contrast. Protocol: Liver Contrast: Eovist (gadoxetate) 14 mL COMPARISON: 12/19/2024 FINDINGS: Liver: No hepatic surface nodularity, significant steatosis, or iron deposition - Bile ducts: No significant intrahepatic or extra hepatic bile duct dilatation. - Focal liver lesions: No suspicious liver lesion. Unchanged right hepatic cyst. - Vasculature: Patent portal and hepatic veins Gallbladder: Normal Pancreas: Normal Spleen: Iron deposition. Otherwise normal Adrenals: Normal Kidneys: Normal Other Findings: No upper abdominal lymphadenopathy or ascites. Procedure Note Hugh Leavitt MD - 04/24/2025 EXAMINATION: MAGNETIC RESONANCE IMAGING OF THE ABDOMEN WITH AND WITHOUT CONTRAST HISTORY: Metastatic melanoma TECHNIQUE: Magnetic resonance imaging of the abdomen was performed prior to and following the uneventful administration of intravenous contrast. Protocol: Liver Contrast: Eovist (gadoxetate) 14 mL COMPARISON: 12/19/2024 FINDINGS: Liver: No hepatic surface nodularity, significant steatosis, or iron deposition - Bile ducts: No significant intrahepatic or extra hepatic bile duct dilatation. - Focal liver lesions: No suspicious liver lesion. Unchanged right hepatic cyst. - Vasculature: Patent portal and hepatic veins Gallbladder: Normal Pancreas: Normal Spleen: Iron deposition. Otherwise normal Adrenals: Normal Kidneys: Normal Other Findings: No upper abdominal lymphadenopathy or ascites. IMPRESSION: No evidence of metastases in the abdomen Electronically signed by: Hugh Leavitt M.D. J Carlos Davison MD [facility] MRI PROCEDURES Final Resul t * (ABNORMAL) eGFR (04/24/2025 7:19 AM CDT) Pathologist [facility] eGFR 50(L) >=60 mL/min/1. 73 m2 Comment: Interpretive Data [...] interpretive data was last reviewed 2021. Blood 04/24/2025 7:19 AM CDT 04/24/2025 7:52 AM CDT us J Carlos Davison MD LAB BLOOD ORDERABLES Final Res ult [facility] Department [place] [address] * Differential, auto (04/24/2025 7:19 AM CDT) [facility] Neutrophil abs 2.31 1.50 - 6.50 K/cumm Imm gran abs 0.02 0.00 - 0.10 K/cumm [facility] Lymphocyte abs 1.65 0.80 - 3.30 K/cumm [facility] Monocyte abs 0.39 0.20 - 0.80 K/cumm [facility] Eosinophil abs 0.13 0.00 - 0.50 K/cumm [facility] Basophil abs 0.03 0.00 - 0.10 K/cumm [facility] Neutrophil pct 51.0 % [facility] Comment: Interpretive Data Percent cell count reference ranges are not reported, since discordance with absolute values may lead to misinterpretation of CBC data. Current Interpretive Data was last revised on 2018. Imm gran pct 0.4 % [facility] Comment: Interpretive Data Percent cell count reference ranges are not reported, since discordance with absolute values may lead to misinterpretation of CBC data. Current Interpretive Data was last revised on 2018. Lymphocyte pct 36.4 % [facility] Comment: Interpretive Data Percent cell count reference ranges are not reported, since discordance with absolute values may lead to misinterpretation of CBC data. Current Interpretive Data was last revised on 2018. Monocyte pct 8.6 % [facility] Comment: Interpretive Data Percent cell count reference ranges are not reported, since discordance with absolute values may lead to misinterpretation of CBC data. Current Interpretive Data was last revised on 2018. Eosinophil pct 2.9 % [facility] Comment: Interpretive Data Percent cell count reference ranges are not reported, since discordance with absolute values may lead to misinterpretation of CBC data. Current Interpretive Data was last revised on 2018. Basophil pct 0.7 % [facility] Comment: Interpretive Data Percent cell count reference ranges are not reported, since discordance with absolute values may lead to misinterpretation of CBC data. Current Interpretive Data was last revised on 2018. Blood 04/24/2025 7:19 AM CDT 04/24/2025 7:30 AM CDT us J Carlos Davison MD LAB BLOOD ORDERABLES Final Res ult [facility] Department [place] [address] * Thyroid Function [place] (04/24/2025 7:19 AM CDT) TSH 2.17 0.30 - 4.20 mcIUnit/mL Blood 04/24/2025 7:19 AM CDT 04/24/2025 7:30 AM CDT us J Carlos Davison MD LAB BLOOD ORDERABLES Final Res ult Performing Organization Address [facility] de Phone Number [facility] Department [place] [address] * (ABNORMAL) CBC with auto differential (04/24/2025 7:19 AM CDT) Pathologist [facility] WBC 4.53 3.80 - 9.90 K/cumm Hgb 11.1(L) 11.9 - 15.5 g/dL [facility] Hct 33.4(L) 35.6 - 45.5 % [facility] Plt 242 150 - 400 K/cumm [facility] MPV 9.2 9.1 - 12.3 fL [facility] RBC 3.70(L) 3.90 - 5.20 M/cumm [facility] MCV 90.3 81.3 - 96.4 fL [facility] MCH 30.0 27.1 - 33.3 pg [facility] MCHC 33.2 32.3 - 35.7 g/dL [facility] RDW CV 12.8 11.1 - 14.9 % [facility] RDW SD 42.3 35.7 - 48.1 fL [facility] NRBC abs 0.00 0.00 - 0.01 K/cumm [facility] Blood 04/24/2025 7:19 AM CDT 04/24/2025 7:30 AM CDT J Carlos Davison MD LAB BLOOD ORDERABLES Final Res ult Performing Organization Address [facility] Co de Phone Number [facility] Department [place] [address] * Lactate dehydrogenase (LD) (04/24/2025 7:19 AM CDT) [facility] Lactate dehydrogenase (LDH) 185 100 - 250 Units/L Blood 04/24/2025 7:19 AM CDT 04/24/2025 7:30 AM CDT J Carlos Davison MD LAB BLOOD ORDERABLES Final Res ult [facility] Department [place] [address] * (ABNORMAL) Comprehensive metabolic panel (04/24/2025 7:19 AM CDT) Sodium 142 135 - 145 mmol/L Potassium, pl 4.3 3.3 - 4.9 mmol/L [facility] Chloride 108 97 - 110 mmol/L [facility] CO2 25 22 - 32 mmol/L [facility] Anion gap 9 2 - 15 mmol/L [facility] BUN 23 6 - 25 mg/dL [facility] Creatinine 1.15(H) 0.60 - 1.10 mg/dL [facility] Glucose 109 70 - 199 mg/dL [facility] Comment: Interpretive Data Fasting glucose >/= 126 [...] classification and Diagnosis of Diabetes Diabetes Care 202; 46: S19-S40. Current interpretive data was last revised 2022. Calcium 9.6 8.5 - 10.3 mg/dL [facility] Bilirubin, total 0.3 0.1 - 1.2 mg/dL [facility] Protein, pl 7.1 6.5 - 8.5 g/dL [facility] Albumin 4.3 3.5 - 5.0 g/dL [facility] Alk phos 103 40 - 130 Units/L [facility] ALT 16 7 - 45 Units/L [facility] AST 19 10 - 45 Units/L [facility] Blood 04/24/2025 7:19 AM CDT 04/24/2025 7:30 AM CDT J Carlos Davison MD LAB BLOOD ORDERABLES Final Res ult [facility] Department [place] [address] * (ABNORMAL) POCT hemoglobin A1c (11/11/2023 4:54 PM AVIONICS INSTALLER) Hgb A1C, POC 6.6(H) 4.0 - 5.6 % [facility] Est Average Gluc POC 143 mg/dL [facility] Comment: The ADA recommends reporting an estimated Average Glucose (eAG) with all Hemoglobin A1c results using the equation derived from a study of 507 normal and diabetic adults. Minority populations were underrepresented and children were not included. (Diabetes Care 31:2134-1855, 2008). The eAG is not equivalent to a fasting glucose. Blood 11/11/2023 4:54 PM AVIONICS INSTALLER 11/11/2023 4:54 PM AVIONICS INSTALLER Baldemar Gould MD POINT OF CARE TEST ORD ERABLES Final Result Performing Organization Address [facility] de Phone Number [facility] Department [place] [address] from Last 3 Months or Most Recently Relevant to Health Maintenance Insurance [facility] [place] [address] [facility] [place] [address] Advance Directives For more information, please contact: [phone] * Full Code (Latest Code Status on File) Date Activated Date Inactivated Comments 11/16/2023 9:46 AM 11/17/2023 4:55 PM Care Teams Chin Strap Sewer Relationship Specialty Start Date End Date Jony De León DO [address] [place] [address] PCP - General Internal Medicine 08/12/24 J Carlos Davison MD Medical Oncologist/Rn Documentation Medical Oncology 10/05/23 Bindu English OD [address] [place] [address] Optometry 02/25/24
[2025-07-06 14:44] LABS: Add Urine Microscopic? YES; Appearance Urine Cloudy (Clear); Glucose Urine UA 3+ mg/dL (Negative); Leukocyte Esterase Ur 2+ LEU/UL (Negative); Nitrate Urine Negative (Negative); Non Pathogenic Casts 0-2; Specific Grav Ur 1.026 (1.001-1.035)
== END 2025-07-06 14:21 | disposition home or self-care (01) ==
PROVIDERS: PCP Internal Medicine; Visit Provider Internal Medicine
DX: R30.0 Dysuria (principal)
CPT/HCPCS: 81001; 87077; 87086; 87186

== ENCOUNTER 2025-09-29 09:10 | Outpatient (CLI) | payer MEDICARE, SELFPAY ==
[2025-09-29 10:10] LABS: Hematocrit 35.5 % (37.0-47.0); Hemoglobin 11.4 g/dL (12.0-15.0); Immature Granulocyte Percent A 0.5 % (0-0.5); Lymphocytes Absolute Auto 1.32 K/mm3 (0.9-3.2); Mean Corpuscular HGB Conc 32.1 g/dl (32-36); Mean Corpuscular Hemoglobin 29.2 pg (26-34); Mean Corpuscular Volume 91.0 fl (80-100); Nucleated Red Blood Cells Absolute Auto 0.000 K/mm3 (0.0-0.012); Nucleated Red Blood Cells Perc 0.0 % (0.0-0.2); Platelet Count Result 251 k/mm3 (150-375); Red Blood Count 3.90 M/mm3 (4.2-5.4); White Blood Count 4.3 K/mm3 (4.5-10.0)
[2025-09-29 10:14] LABS: MALB Creatinine Ratio 12.8 mg/g (0-30)
[2025-09-29 10:44] LABS: Alanine Aminotransferase 26 U/L (6-35); Albumin Level 4.5 g/dL (3.5-5.1); Alkaline Phosphatase 96 U/L (38-126); Anion Gap 6 mmol/L (4-12); Aspartate Amino Transferase 36 U/L (14-36); Bilirubin,Total 0.6 mg/dL (0.2-1.3); Blood Urea Nitrogen 22 mg/dL (7-17); Calcium 9.7 mg/dL (8.4-10.2); Carbon Dioxide 23 mmol/L (22-30); Chloride 110 mmol/L (98-107); Cholesterol 134 mg/dL (0-200); Estimated Glomerular Filt Rate 48; Glucose 72 mg/dL (65-110); HDL Direct 61 mg/dL; Potassium 4.0 mmol/L (3.4-5.0); Sodium 139 mmol/L (137-145); Total Protein 7.3 g/dL (6.3-8.2); Triglycerides 118 mg/dL (<150)
[2025-09-29 11:01] LABS: Free T4 Free Thyroxine 1.54 ng/dL (0.78-2.19)
[2025-09-29 11:30] LABS: Thyroid Stimulating Hormone 1.590 uIU/mL (0.465-4.680)
[2025-09-29 14:03] LABS: Hemoglobin A1C 6.0 % (<5.7)
== END 2025-09-29 09:11 | disposition home or self-care (01) ==
PROVIDERS: PCP Internal Medicine; Visit Provider Internal Medicine
DX: E11.9 Type 2 diabetes mellitus without complications (principal); E03.9 Hypothyroidism, unspecified; E78.5 Hyperlipidemia, unspecified
CPT/HCPCS: 36415; 80053; 80061; 82043; 83036; 84439; 84443; 85025